=== PATIENT | female | born 1975 | race Caucasian/White ===

== ENCOUNTER 2017-09-04 10:57 | Emergency (ER) | payer BC ==
[2017-09-04] MEDS ORDERED: MORPHINE 4 MG/ML SYR ONE ×2 (11:25→12:14)
[2017-09-04] MEDS ORDERED: NA CHLORIDE 0.9% 1,000 ML ONE (11:26)
[2017-09-04] MEDS ORDERED: ONDANSETRON 4 MG/2 ML VIAL ONE (11:26)
[2017-09-04 11:49] LABS: Absolute Lymphocytes (CBC) 1.6 K/uL (0.7-4.9); Absolute Monocytes 0.7 K/uL (0.1-1.3); Absolute Neutrophil 19.8 K/uL (1.8-8.0); Basophils % 0.3 % (0-1.3); Eosinophils % 0.1 % (0-4.4); Hematocrit 41.2 % (36.0-45.0); Lymphocytes % 7.1 % (15.3-44.8); MCV 91.3 fL (80-100); MPV 8.6 fL (7.6-11.3); Monocytes % 3.4 % (3.3-12.3); RBC Red Blood Cell Count 4.51 M/uL (3.86-4.86)
[2017-09-04 12:00] LABS: Albumin 4.2 g/dL (3.2-5.5); Bilirubin Direct 0.1 mg/dL (0-0.2); Bilirubin Total 0.9 mg/dL (0.3-1.2); Magnesium 1.8 mg/dL (1.8-2.5); Protein, Total 7.7 g/dL (6.0-8.3)
[2017-09-04 12:04] LABS: Potassium 2.8 mEq/L (3.6-5.0)
[2017-09-04] MEDS ORDERED: MAGNESIUM SULFATE 1 gm IVPB 0 GM/0 ML BAG IV ONE (12:14)
[2017-09-04 12:17] LABS: Protime INR 1.11
[2017-09-04] MEDS ORDERED: KCL 20 MEQ/100 mL IVPB 20 MEQ/100 ML BAG IV ONE (12:19)
--- NOTE | 2017-09-04 12:29 | RAD REPORT ---
EXAM DESCRIPTION: CT - Abdomen Pelvis W Contrast - 09/04/2017 12:01 pm CLINICAL HISTORY: Abdominal pain, history of the hysterectomy performed 3 weeks earlier, vaginal ble eding COMPARISON: CT May 2017 TECHNIQUE: Biphasic, helical CT imaging of the abdomen and pelvis was performed following 100 ml non -ionic IV contrast. No oral contrast was given. All CT scans are performed using dose optimization technique as appropriate and may include automated exposure control or mA/KV adjustment according to patient size. FINDINGS: No suspicious findings in the lung bases. The liver, spleen, and pancreas show no suspicious findings. Gallbladder and biliary tree are also wi thout suspicious finding. Symmetric renal function is seen with no hydronephrosis or suspicious renal mass. No gastric dilatation or gastric wall thickening. No dilated small bowel loops. Distal small bowel lo ops are fluid filled and distended but not dilated. No mass or wall thickening. No appendicitis findi ngs. Bell of the colon are mildly prominent though the colon is mostly decompressed. This limits acc uracy of assessment. No bowel wall pneumatosis or focal inflammatory stranding. Free intraperitoneal air is present. Peritoneal air associated with the hysterectomy should have reso lved in his 3 week interval. Bowel in etiology is not seen. There is no large mass or hematoma at the vaginal cuff. This may be a source for introduction of free air. No hernia, mass or bulky lymphadenopathy. Partially filled urinary bladder shows no suspicious findin g. No adrenal abnormality. No suspicious bony findings. Findings discussed with the referring clinician 12:25 p.m. IMPRESSION: Free intraperitoneal air is present without abnormal free fluid. This is not a large fidelia ntity of air but is still abnormal. Surgery related air should have resolved in 3 weeks. No definitive source for the free air is seen. Focal defect of the vaginal cuff would be a primary c onsideration. Bell of the colon are prominent. This is probably from decompressed state rather than a pancolitis. Small bowel loops are prominent in the pelvis in this could be a nonspecific enteritis or ileus. Mild colitis would be possible as well. GI perforation or GI source for free air is unlikely.
--- NOTE | 2017-09-04 12:34 | RAD REPORT ---
EXAM DESCRIPTION: RAD - Chest Single View - 09/04/2017 11:38 am CLINICAL HISTORY: Chest pain, hysterectomy 3 weeks earlier COMPARISON: May 2014 TECHNIQUE: AP portable chest image was obtained 1126 hours . FINDINGS: No mass, consolidation or failure. Lung parenchyma is not substantially different from the comparison. Heart and vasculature are normal. No measurable pleural effusion and no pneumothorax. No gross bony abnormality seen. No acute aortic finding. Free intraperitoneal air is identified on this chest examination. This is further addressed on the CT abdomen report. IMPRESSION: No acute cardiopulmonary process. Free intraperitoneal air. Please see separate CT abdomen and pelvis report.
[2017-09-04 12:59] LABS: Blood Morphology Comment NOT SEEN (NOT SEEN); Platelet Estimate ADEQ; Urine White Blood Cell Casts OK
[2017-09-04] MEDS ORDERED: PIPER/TAZO/NS 3.375gm 3.375 GM/100 ML BAG ONE (13:10)
[2017-09-04] MEDS ORDERED: HYDROCODONE/APAP 7.5/325 MG TAB ONE (14:30)
--- NOTE | 2017-09-04 15:03 | ER ---
Nurse's Notes [facility] Name: Betty Mckeon Age: 41 yrs Sex: Female : 1975 Arrival Date: 09/04/2017 Time: 11:14 Bed 2 Private MD: Diagnosis: Abnormal uterine and vaginal bleeding, unspecified Presentation: 09/04 11:20 Presenting complaint: Patient states: Patient reports she had a hysterectomy 3 weeks ae1 prior and started bleeding the previous evening and today spotting bright red blood. Transition of care: patient was not received from another setting of care. Onset of symptoms was September 03, 2017 at 18:00. Risk Assessment: Do you want to hurt yourself or someone else? Patient reports no desire to harm self or others. Initial Sepsis Screen: Does the patient meet any 2 criteria? No. Patient's initial sepsis screen is negative. Does the patient have a suspected source of infection? No. Patient's initial sepsis screen is negative. Care prior to arrival: None. 11:20 Acuity: JUANCARLOS 3 ae1 11:20 Method Of Arrival: Wheelchair ae1 Triage Assessment: 11:37 General: Appears distressed, uncomfortable, slender, Behavior is cooperative, anxious, ae1 restless. Pain: Complains of pain in suprapubic area, right lower quadrant and left lower quadrant. Neuro: Level of Consciousness is awake, alert, obeys commands, Oriented to person, place, time, situation. Cardiovascular: Patient's skin is warm and dry. Respiratory: Airway is patent Respiratory effort is even, unlabored, Breath sounds are clear bilaterally. GI: Reports lower abdominal pain. : Reports vaginal bleeding that is. VEGETABLE PICKER: 11:16 LMP N/A - Hysterectomy ae1 Historical: - Allergies: 11:35 No Known Allergies; ae1 - PSHx: 11:35 Hysterectomy; ae1 - Immunization history:: Flu vaccine is not up to date. - Social history:: Smoking status: Patient uses tobacco products, Patient uses alcohol, street drugs, The patient lives with family. - Family history:: not pertinent. - Ebola Screening: : Patient negative for fever greater than or equal to 101.5 degrees Fahrenheit, and additional compatible Ebola Virus Disease symptoms Patient denies exposure to infectious person Patient denies travel to an Ebola-affected area in the 21 days before illness onset. Screenin:36 Abuse screen: Denies threats or abuse. Nutritional screening: No deficits noted. ae1 Tuberculosis screening: No symptoms or risk factors identified. Fall Risk None identified. Assessment: 15:28 Reassessment: Patient appears in no apparent distress at this time. Patient and/or ae1 family updated on plan of care and expected duration. Pain level reassessed. Patient states feeling better. Patient states symptoms have improved. Vital Signs: 11:16 BP 139 / 96; Pulse 81; Resp 20; Pulse Ox 98% on R/A; ae1 11:20 Temp 99.5(O); ae1 11:36 Weight 58.97 kg (R); ae1 12:09 BP 125 / 81; Pulse 70; Resp 15; Pulse Ox 100% on R/A; ae1 14:39 BP 123 / 86; Pulse 66; Resp 15; Pulse Ox 100% on R/A; ae1 15:28 Pulse 72; Resp 16; Pulse Ox 98% on R/A; ae1 15:55 BP 120 / 72; ae1 ED Course: 11:14 Patient arrived in ED. ae1 11:15 Mani Maier, COLETTE is Primary Nurse. ae1 11:17 Vitaly John PA is PHCP. cp 11:17 Pierre Reynaga MD is Attending Physician. cp 11:18 Omero Au MD is Attending Physician. cp 11:22 Triage completed. ae1 11:22 Placed in gown. Bed in low position. Call light in reach. Side rails up X 1. Adult w/ ae1 patient. semiconductor dies loader on. Pulse ox on. NIBP on. Warm blanket given. 11:35 EKG done, by ED staff, reviewed by Omero Au MD. Initial lab(s) drawn, by , jb1 sent to lab. Inserted saline lock: 22 gauge in right antecubital area, using aseptic technique. Blood collected. 11:36 Arm band placed on right wrist. EKG completed in triage. Results shown to . ae1 11:37 X-ray completed. Portable x-ray completed in exam room. Patient tolerated procedure jw2 poorly. 11:38 XRAY Chest (1 view) In Process Unspecified. EDMS 11:58 CT completed. Patient moved to CT via wheelchair. Patient moved back from CT. cw1 12:02 CT Abd/Pelvis - W/Contrast In Process Unspecified. EDMS 12:07 Patient moved back from CT. ae1 15:15 Assist provider with pelvic exam:. ae1 16:55 Patient transferred, IV remains in place. ae1 Administered Medications: 11:25 Drug: NS 0.9% 1000 ml Route: IV; Rate: 1 bolus; Site: right antecubital; ae1 15:56 Follow up: IV Status: Completed infusion ae1 11:25 Drug: morphine 4 mg Route: IVP; Site: right antecubital; ae1 12:26 Follow up: Response: Pain is unchanged, physician notified ae1 11:25 Drug: Zofran 4 mg Route: IVP; Site: right antecubital; ae1 12:26 Follow up: Response: No adverse reaction ae1 12:18 Drug: morphine 4 mg Route: IVP; Site: right antecubital; ae1 14:35 Follow up: Response: Pain is decreased ae1 12:25 Drug: Potassium Chloride 20 mEq Route: IV; Rate: bolus; Site: right antecubital; ae1 14:30 Follow up: IV Status: Completed infusion ae1 12:26 Not Given (Physician Discretion): Magnesium Sulfate 1 grams IVPB once over 1 hrs ae1 14:32 Drug: [place] (7.5 mg-325 mg) 1 tabs Route: PO; ae1 15:56 Follow up: Response: Pain is decreased ae1 14:38 Drug: Zosyn 3.375 grams Route: IVPB; Infused Over: 60 mins; Site: right antecubital; ae1 15:55 Follow up: IV Status: Completed infusion ae1 Outcome: 15:02 ER care complete, transfer ordered by . ma2 16:55 Transferred by ground EMS to [facility]. ae1 16:55 Condition: stable 16:55 Instructed on the need for transfer, Demonstrated understanding of instructions. 16:56 Patient left the ED. ae1 Signatures: Dispatcher [employer] EDMS Keven Arenas1 Emily Dominguez cw1 Viatly John PA PA cp Wailes, Jenni jw2 Mani Maier RN RN ae1 Omero Au MD MD ma2
--- NOTE | 2017-09-04 15:03 | EDPHYS ---
Physician Documentation [facility] Name: Betty Mckeon Age: 41 yrs Sex: Female : 1975 Arrival Date: 09/04/2017 Time: 11:14 Bed 2 Private MD: ED Physician Omero Au HPI: 09/04 11:21 This 41 yrs old Female presents to ER via Unassigned with complaints of abd ma2 pain. 11:21 The patient presents with abdominal pain in the lower abdomen. The symptoms do not ma2 radiate. Associated signs and symptoms: Pertinent positives: diarrhea, vaginal bleeding. The symptoms are described as stabbing. Modifying factors: The symptoms are alleviated by the symptoms are aggravated by movement. Severity of pain: At its worst the pain was severe. The patient has experienced similar episodes in the past. s/p hysterectomy 5 wks ago for DUB, here with vaginal bleeding, abd pain and while in the waiting room started to have chest pain that is left sided and been constant for 1 hour, she has diarrhea x 1 day, smoked MJ and states that she may have smoked cocaine accidently as she hang out with people who smoke it and they may have put it in her cigarette . COMMIS CHEF: 11:16 LMP N/A - Hysterectomy ae1 Historical: - Allergies: 11:35 No Known Allergies; ae1 - PSHx: 11:35 Hysterectomy; ae1 - Immunization history:: Flu vaccine is not up to date. - Social history:: Smoking status: Patient uses tobacco products, Patient uses alcohol, street drugs, The patient lives with family. - Family history:: not pertinent. - Ebola Screening: : Patient negative for fever greater than or equal to 101.5 degrees Fahrenheit, and additional compatible Ebola Virus Disease symptoms Patient denies exposure to infectious person Patient denies travel to an Ebola-affected area in the 21 days before illness onset. ROS: 11:24 Constitutional: Negative for fever, chills, and weight loss, Neck: Negative for injury, ma2 pain, and swelling, Cardiovascular: Negative for chest pain, palpitations, and edema, Respiratory: Negative for shortness of breath, cough, wheezing, and pleuritic chest pain, MS/Extremity: Negative for injury and deformity, Neuro: Negative for headache, weakness, numbness, tingling, and seizure, Endocrine: Negative for neck swelling, polydipsia, polyuria, polyphagia, and marked weight changes. 11:24 Abdomen/GI: Positive for abdominal pain. 11:24 : Positive for vaginal bleeding. 11:24 All other systems are negative. Exam: 11:24 Constitutional: This is a well developed, well nourished patient who is awake, alert, ma2 and in no acute distress. Head/Face: Normocephalic, atraumatic. Chest/axilla: Normal chest wall appearance and motion. Nontender with no deformity. No lesions are appreciated. Cardiovascular: Regular rate and rhythm with a normal S1 and S2. No gallops, murmurs, or rubs. Normal PMI, no JVD. No pulse deficits. Respiratory: Lungs have equal breath sounds bilaterally, clear to auscultation and percussion. No rales, rhonchi or wheezes noted. No increased work of breathing, no retractions or nasal flaring. MS/ Extremity: Pulses equal, no cyanosis. Neurovascular intact. Full, normal range of motion. Neuro: Awake and alert, GCS 15, oriented to person, place, time, and situation. Cranial nerves II-XII grossly intact. Motor strength 5/5 in all extremities. Sensory grossly intact. Cerebellar exam normal. Normal gait. 11:24 Abdomen/GI: Palpation: moderate abdominal tenderness, in the right upper quadrant, right lower quadrant and left lower quadrant, severe abdominal tenderness. 15:21 : Pelvic Exam: Speculum exam: mild bleeding, os that is closed. ma2 Vital Signs: 11:16 BP 139 / 96; Pulse 81; Resp 20; Pulse Ox 98% on R/A; ae1 11:20 Temp 99.5(O); ae1 11:36 Weight 58.97 kg (R); ae1 12:09 BP 125 / 81; Pulse 70; Resp 15; Pulse Ox 100% on R/A; ae1 14:39 BP 123 / 86; Pulse 66; Resp 15; Pulse Ox 100% on R/A; ae1 15:28 Pulse 72; Resp 16; Pulse Ox 98% on R/A; ae1 15:55 BP 120 / 72; ae1 MDM: 11:18 Patient medically screened. ma2 11:24 Differential diagnosis: gastritis, gastroesophageal reflux disease, sympomatic leaking ma2 abdominal aortic aneurysm, Menorrhagia, pancreatitis. 14:48 Data reviewed: vital signs, nurses notes, lab test result(s), radiologic studies. ma2 Counseling: I had a detailed discussion with the patient and/or guardian regarding: the historical points, exam findings, and any diagnostic results supporting the discharge/admit diagnosis, the presence of at least one elevated blood pressure reading (>120/80) during this emergency department visit, the need to transfer to another facility. Response to treatment: the patient's symptoms have markedly improved after treatment. ED course: patient has free intraperitoneal air consistent with vaginal cuff leak, we attempted to contact her surgeon multiple times Dr. De Leon from [facility] no reply, left voice messages. discussed with Dr. Bernie sosa who recommend transfer to [facility] for continuity of care . 09/04 11:20 Order name: Basic Metabolic Panel; Complete Time: 12:49 ma2 09/04 11:20 Order name: BNP; Complete Time: 12:04 [facility] 09/04 11:20 Order name: CBC with Diff; Complete Time: 14:06 [facility] 09/04 11:20 Order name: LFT's; Complete Time: 12:49 ks2 09/04 11:20 Order name: Magnesium; Complete Time: 12:49 ks2 09/04 11:20 Order name: PT-INR; Complete Time: 12:49 ks2 09/04 11:20 Order name: Ptt, Activated; Complete Time: 12:49 ks2 09/04 11:20 Order name: Troponin (emerg Dept Use Only); Complete Time: 12:04 ks2 09/04 11:20 Order name: XRAY Chest (1 view); Complete Time: 12:49 ks2 09/04 11:20 Order name: CT Abd/Pelvis - W/Contrast; Complete Time: 12:49 ks2 09/04 11:26 Order name: Lipase; Complete Time: 12:04 ks2 09/04 12:06 Order name: CBC Smear Scan; Complete Time: 14:06 EDMS 09/04 14:29 Order name: Urine Dipstick--Ancillary (enter results); Complete Time: 15:42 bd 09/04 11:20 Order name: EKG; Complete Time: 11:21 ma2 09/04 11:20 Order name: Cardiac monitoring; Complete Time: 11:23 ma2 09/04 11:20 Order name: EKG - Nurse/Tech; Complete Time: 11:32 ks2 09/04 11:20 Order name: IV Saline Lock; Complete Time: 11: [facility] 09/04 11:20 Order name: Labs collected and sent; Complete Time: : ks09/04 11:20 Order name: O2 Per Protocol; Complete Time: 11: ks2 09/04 11:20 Order name: O2 Sat Monitoring; Complete Time: : [facility] 09/04 11:20 Order name: Urine Dipstick-Ancillary (obtain specimen); Complete Time: 14:36 ma2 Administered Medications: 11:25 Drug: NS 0.9% 1000 ml Route: IV; Rate: 1 bolus; Site: right antecubital; ae1 15:56 Follow up: IV Status: Completed infusion ae1 11:25 Drug: morphine 4 mg Route: IVP; Site: right antecubital; ae1 12:26 Follow up: Response: Pain is unchanged, physician notified ae1 11:25 Drug: Zofran 4 mg Route: IVP; Site: right antecubital; ae1 12:26 Follow up: Response: No adverse reaction ae1 12:18 Drug: morphine 4 mg Route: IVP; Site: right antecubital; ae1 14:35 Follow up: Response: Pain is decreased ae1 12:25 Drug: Potassium Chloride 20 mEq Route: IV; Rate: bolus; Site: right antecubital; ae1 14:30 Follow up: IV Status: Completed infusion ae1 12:26 Not Given (Physician Discretion): Magnesium Sulfate 1 grams IVPB once over 1 hrs ae1 14:32 Drug: [place] (7.5 mg-325 mg) 1 tabs Route: PO; ae1 15:56 Follow up: Response: Pain is decreased ae1 14:38 Drug: Zosyn 3.375 grams Route: IVPB; Infused Over: 60 mins; Site: right antecubital; ae1 15:55 Follow up: IV Status: Completed infusion ae1 Disposition: 09/04/17 15:02 Transfer ordered to [facility]. Diagnosis is Abnormal uterine and vaginal bleeding, unspecified. - Reason for transfer: [facility]. - Accepting physician is Dr. Olmedo. - Condition is Stable. - Problem is new. - Symptoms are unchanged. Signatures: Dispatcher [employer] EDMS Quynh Early, GEAR SHAVER SET UP OPERATOR-C GEAR SHAVER SET UP OPERATOR-Csnw Mani Maier, RN RN ae1 Omero Au MD MD ma2 Corrections: (The following items were deleted from the chart) 15:22 11:27 URINALYSIS+U.LAB.BRZ ordered. [facility] 16:56 15:02 09/04/2017 15:02 Transfer ordered to [facility]. Diagnosis is Abnormal ae1 uterine and vaginal bleeding, unspecified. Reason for transfer: [facility] Physician [facility]. Accepting physician is Dr. Olmedo. Condition is Stable. Problem is new. Symptoms are unchanged. ma2
[2017-09-04 15:20] LABS: Urine Blood 2+ (NEG); Urine Glucose NEGATIVE (NEG); Urine Protein 1+ (NEG); Urine Specific Gravity 1.015 (1.005-1.030); Urine pH 8.5 (5.0-7.0)
[2017-09-04 17:25] VITALS: TEMP 99.5
[2017-09-04 17:29] VITALS: BP 120/72; O2SAT 98
--- NOTE | 2017-09-05 12:46 | EKG ---
Test Date: 2017-09-04 Test Time: 11:28:48 Pickling Machine Operator: MAI MEASUREMENT RESULTS: Intervals: Rate: 74 CT: 136 QRSD: 86 QT: 386 QTc: 428 [place]: P: 38 CT: 136 QRS: 70 T: 62 INTERPRETIVE STATEMENTS: Normal sinus rhythm with sinus arrhythmia Minimal voltage criteria for LVH, may be normal variant Borderline ECG Compared to ECG 06/03/2014 09:26:55 Left ventricular hypertrophy now present Sinus tachycardia no longer present Atrial abnormality no longer present ST (T wave) deviation no longer present Electronically Signed On 09-05-17 12:43:51 CDT by Logan Reyes
== END 2017-09-04 16:56 | disposition short-term general hospital (02) ==
LOC: ER 10:57
DX: N93.9 Abnormal uterine and vaginal bleeding, unspecified (principal); Z72.0 Tobacco use
CPT/HCPCS: 36415; 71045; 74177; 80048; 80076; 81003; 83690; 83735; 83880; 84484; 85025; 85610; 85730; 93005; 96361; 96365; 96366; 96367; 96375; 99285; J2405; J2543; J3475; J7030; Q9967

== ENCOUNTER 2017-09-13 09:41 | Emergency (ER) | payer BC ==
[2017-09-13] MEDS ORDERED: ONDANSETRON 4 MG/2 ML VIAL ONE (10:20)
[2017-09-13] MEDS ORDERED: MORPHINE 4 MG/ML SYR ONE (10:20)
[2017-09-13] MEDS ORDERED: NA CHLORIDE 0.9% 1,000 ML ONE (10:20)
[2017-09-13 11:00] LABS: Absolute Lymphocytes (CBC) 2.7 K/uL (0.7-4.9); Absolute Monocytes 0.5 K/uL (0.1-1.3); Absolute Neutrophil 7.7 K/uL (1.8-8.0); Basophils % 1.2 % (0-1.3); Eosinophils % 2.3 % (0-4.4); Hematocrit 36.1 % (36.0-45.0); Lymphocytes % 23.9 % (15.3-44.8); MCH 29.1 pg (27.0-35.0); MCV 92.1 fL (80-100); MPV 7.8 fL (7.6-11.3); Monocytes % 4.3 % (3.3-12.3); RBC Red Blood Cell Count 3.93 M/uL (3.86-4.86)
[2017-09-13 11:16] LABS: Potassium 3.9 mEq/L (3.6-5.0)
[2017-09-13 11:22] LABS: Albumin 3.9 g/dL (3.2-5.5); Bilirubin Direct 0.1 mg/dL (0-0.2); Bilirubin Total 0.4 mg/dL (0.3-1.2); Protein, Total 7.3 g/dL (6.0-8.3)
[2017-09-13 11:54] LABS: Urine Amorphous Sediment 2+ /HPF (NONE SEEN); Urine Bacteria <20 /HPF (<20); Urine Culture Reflex Order NOT NEEDED; Urine RBC NONE SEEN /HPF (NONE SEEN)
[2017-09-13] MEDS ORDERED: MEPERIDINE HCL 25 MG/0.5 ML ONE (12:28)
--- NOTE | 2017-09-13 13:50 | RAD REPORT ---
EXAM DESCRIPTION: CT - Abdomen Pelvis W Contrast - 09/13/2017 1:28 pm CLINICAL HISTORY: Abdominal pain. Nausea and vomiting COMPARISON: None. TECHNIQUE: Computed axial tomography of the abdomen and pelvis was obtained. 100 cc Isovue-300 is ad ministered intravenously. Oral contrast was given. All CT scans are performed using dose optimization technique as appropriate and may include automated exposure control or mA/KV adjustment according to patient size. FINDINGS: The liver, spleen, pancreas, adrenals and kidneys appear unremarkable. There is no evidence of diverticulitis The pneumoperitoneum has resolved. Air within the vagina is noted IMPRESSION: Air within the vagina could be secondary to recent instrumentation. Infection and fistu la can also result in this appearance.
[2017-09-13] MEDS ORDERED: CEFTRIAXONE/SWI 1gm 1 GM/10 ML SYR ONE (14:08)
[2017-09-13] MEDS ORDERED: DOXYCYCLINE 100 MG CAP PO ONE (14:08)
--- NOTE | 2017-09-13 14:08 | EDPHYS ---
Physician Documentation [facility] Name: Betty Mckeon Age: 41 yrs Sex: Female : 1975 Arrival Date: 09/13/2017 Time: 09:41 Bed 28 Private MD: Darell Kaba E ED Physician Jesus De Dios HPI: 09/13 12:53 This 41 yrs old Female presents to ER via Ambulatory with complaints of rn Abdominal Pain. 12:53 The patient presents with abdominal pain in the lower abdomen. Onset: The rn symptoms/episode began/occurred 1 week(s) ago. Associated signs and symptoms: Pertinent positives: constipation, nausea, Pertinent negatives: dysuria, fever. Modifying factors: The symptoms are alleviated by nothing, the symptoms are aggravated by touching the area. Severity of pain: At its worst the pain was moderate in the emergency department the pain has improved. The patient has experienced a previous episode. Reports discharged 5 days ago from OSH, had to be re-admitted for free peritoneal air, told stitches had busted loose, repaired, stayed in hospital for 2 days, discharged, reports still has pain, discharge and bleeding is improved, no fever, + constipation and nausea. . 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 - Social history:: Smoking status: Patient uses tobacco products, smokes one-half pack cigarettes per day. - Ebola Screening: : No symptoms or risks identified at this time. - Family history:: not pertinent. - Hospitalizations: : No recent hospitalization is reported. ROS: 12:53 Constitutional: Negative for fever, chills, and weight loss, Eyes: Negative for injury, rn pain, redness, and discharge, Neck: Negative for injury, pain, and swelling, Cardiovascular: Negative for chest pain, palpitations, and edema, Respiratory: Negative for shortness of breath, cough, wheezing, and pleuritic chest pain, Abdomen/GI: Negative for vomiting, diarrhea MS/Extremity: Negative for injury and deformity, Skin: Negative for injury, rash, and discoloration, Neuro: Negative for headache, weakness, numbness, tingling, and seizure. Exam: 12:53 Constitutional: Thin female, no acute distress, immediately requesting warm blanket rn and pain medication Head/Face: Normocephalic, atraumatic. Eyes: Pupils equal round and reactive to light, extra-ocular motions intact. Lids and lashes normal. Conjunctiva and sclera are non-icteric and not injected. Cornea within normal limits. Periorbital areas with no swelling, redness, or edema. Cardiovascular: Regular rate and rhythm with a normal S1 and S2. No gallops, murmurs, or rubs. Normal PMI, no JVD. No pulse deficits. Respiratory: Lungs have equal breath sounds bilaterally, clear to auscultation and percussion. No rales, rhonchi or wheezes noted. No increased work of breathing, no retractions or nasal flaring. Abdomen/GI: soft, mild suprapubic tenderness, no peritoneal signs, well healed external scar Back: No spinal tenderness. No costovertebral tenderness. Full range of motion. Skin: Warm, dry with normal turgor. Normal color with no rashes, no lesions, and no evidence of cellulitis. MS/ Extremity: Pulses equal, no cyanosis. Neurovascular intact. Full, normal range of motion. Equal circumference. Neuro: Awake and alert, GCS 15, oriented to person, place, time, and situation. Cranial nerves II-XII grossly intact. Motor strength 5/5 in all extremities. Sensory grossly intact. Cerebellar exam normal. Normal gait. Vital Signs: 10:02 BP 119 / 81; Pulse 79; Resp 18 S; Temp 97.2(TE); Pulse Ox 100% on R/A; Weight 45.36 kg aa5 (R); Height 5 ft. 7 in. (170.18 cm) (R); Pain 9/10; 11:42 BP 111 / 85; Pulse 55; Resp 17; Pulse Ox 100% on R/A; aj 12:52 BP 125 / 87; Pulse 63; Resp 19; Pulse Ox 100% on R/A; aj 13:59 BP 125 / 94; Pulse 64; Resp 18; Pulse Ox 100% on R/A; aj 10:02 Body Mass Index 15.66 (45.36 kg, 170.18 cm) aa MDM: 10:06 Patient medically screened. rn 14:04 Differential diagnosis: non-specific abd pain, post-operative complication, rn post-operative infection, constipation, non-specific abd pain. Data reviewed: vital signs, nurses notes, lab test result(s), radiologic studies, CT scan, and as a result, I will discharge patient. Counseling: I had a detailed discussion with the patient and/or guardian regarding: the historical points, exam findings, and any diagnostic results supporting the discharge/admit diagnosis, lab results, radiology results, the need for outpatient follow up, to return to the emergency department if symptoms worsen or persist or if there are any questions or concerns that arise at home. Special discussion: Based on the patient's Hx, exam, and Dx evaluation, there is no indication for emergent surgery or inpatient Tx. It is understood by the patient/guardian that if the Sx's persist or worsen they need to return immediately for re-evaluation. I discussed with the patient/guardian in detail that at this point there is no indication for admission to the hospital. It is understood, however, that if the symptoms persist or worsen the patient needs to return immediately for re-evaluation. Based on the history and exam findings, there is no indication for further emergent testing or inpatient evaluation. I discussed with the patient/guardian the need to see the OB Gyne specialist for further evaluation of the symptoms. 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 . 09/13 10:13 Order name: Basic Metabolic Panel; Complete Time: 12:34 rn 09/13 10:13 Order name: CBC with Diff; Complete Time: 12:34 rn 09/13 10:13 Order name: Creatinine for Radiology; Complete Time: 12:34 rn 09/13 10:13 Order name: Hepatic Function; Complete Time: 12:34 rn 09/13 10:13 Order name: Lipase; Complete Time: 12:34 rn 09/13 10:13 Order name: Urine Microscopic Only; Complete Time: 12:34 rn 09/13 10:13 Order name: CT Abd/Pelvis - W/Contrast; Complete Time: 13:59 rn 09/13 11:51 Order name: Urine Dipstick--Ancillary (enter results) bd 09/13 10:13 Order name: IV Saline Lock; Complete Time: 10:54 rn 09/13 10:13 Order name: Labs collected and sent; Complete Time: 10:54 rn 09/13 10:13 Order name: Urine Dipstick-Ancillary (obtain specimen); Complete Time: 10:54 rn Administered Medications: 10:53 Drug: Zofran 4 mg Route: IVP; Site: right forearm; aj 14:11 Follow up: Response: Nausea is decreased aj 10:53 Drug: NS 0.9% 1000 ml Route: IV; Rate: 1000 ml; Site: right forearm; aj 14:11 Follow up: Response: Nausea is decreased; IV Status: Completed infusion; IV Intake: aj 1000ml 10:54 Drug: morphine 4 mg Route: IVP; Site: right forearm; aj 14:11 Follow up: Response: Pain is decreased aj 12:31 Drug: Demerol 25 mg Route: IVP; Site: right forearm; aj 14:11 Follow up: Response: Pain is decreased aj 14:10 Drug: Doxycycline 100 mg Route: PO; aj 14:11 Drug: Rocephin - (cefTRIAXone) 1 grams Route: IVPB; Infused Over: 30 mins; Site: right aj forearm; 14:12 Follow up: Response: No adverse reaction; IV Status: Completed infusion; IV Intake: 10mlaj Disposition: 09/13/17 14:08 Discharged to Home. Impression: Lower abdominal pain, unspecified. - Condition is Stable. - Discharge Instructions: Abdominal Pain, Adult, Abdominal Pain, Women. - Prescriptions for Tylenol- Codeine #3 300-30 mg Oral Tablet - take 1 tablet by ORAL route every 6 hours As needed; 15 tablet. Doxycycline Monohydrate 100 mg Oral Tablet - take 1 tablet by ORAL route every 12 hours for 10 days; 20 tablet. cefpodoxime 100 mg Oral Tablet - take 2 tablet by ORAL route every 12 hours for 10 days take with food; 40 tablet. - Medication Reconciliation Form, Thank You Letter, Antibiotic Education, Prescription Opioid Use form. - Follow up: Private Physician; When: 1 - 2 days; Reason: Recheck today's complaints, Re-evaluation by your physician. - Problem is new. - Symptoms have improved. Signatures: Dispatcher [employer] Rachel Vasquez, RN Jesus Gar MD MD rn Calderon, Audri, RN RN aa5 Corrections: (The following items were deleted from the chart) 09:48 Allergies: Lisinopril; aa5 [facility] 09:48 PMHx: Diabetes - NIDDM; aa5 09:48 PMHx: Hypertension; 5 [facility] 09:48 PSHx: Right ovary removed (cyst); 5 09:48 Ebola Screening: No symptoms or risks identified at this time 5 [facility] 09:48 Social history: Smoking status: Patient/guardian denies using tobacco, 5 [facility] 09:48 Immunization history: Adult Immunizations unknown, [place] [id number] 14:18 14:08 09/13/2017 14:08 Discharged to Home. Impression: Lower abdominal pain, aj unspecified. Condition is Stable. Forms are Medication Reconciliation Form, Thank You Letter, Antibiotic Education, Prescription Opioid Use. Follow up: Private Physician; When: 1 - 2 days; Reason: Recheck today's complaints, Re-evaluation by your physician. Problem is new. Symptoms have improved. rn
--- NOTE | 2017-09-13 14:08 | ER ---
Nurse's Notes [facility] Name: Betty Mckeon Age: 41 yrs Sex: Female : 1975 Arrival Date: 09/13/2017 Time: 09:41 Bed 28 Private MD: Darell Kaba E Diagnosis: Lower abdominal pain, unspecified Presentation: 09/13 10:00 Presenting complaint: Patient states: abd pain and nausea/vomiting, denies diarrhea. Pt aa5 states "I had some intestinal problem and they just did surgery to repair it a couple of days ago". Transition of care: patient was not received from another setting of care. Onset of symptoms was September 2017. Risk Assessment: Do you want to hurt yourself or someone else? Patient reports no desire to harm self or others. Initial Sepsis Screen: Does the patient meet any 2 criteria? No. Patient's initial sepsis screen is negative. Does the patient have a suspected source of infection? No. Patient's initial sepsis screen is negative. Care prior to arrival: None. 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 - Social history:: Smoking status: Patient uses tobacco products, smokes one-half pack cigarettes per day. - Ebola Screening: : No symptoms or risks identified at this time. - Family history:: not pertinent. - Hospitalizations: : No recent hospitalization is reported. Screenin:14 Abuse screen: Denies threats or abuse. Denies injuries from another. Nutritional aj screening: No deficits noted. Tuberculosis screening: No symptoms or risk factors identified. Fall Risk None identified. Assessment: 10:14 General: Appears in no apparent distress. comfortable, slender, Behavior is calm, aj cooperative, appropriate for age. Pain: Complains of pain in pelvis. Cardiovascular: No deficits noted. Capillary refill < 3 seconds in bilateral fingers Patient's skin is warm and dry. Respiratory: Airway is patent Respiratory effort is even, unlabored, Respiratory pattern is regular, symmetrical. GI: Abdomen is flat, non-distended, Abd is soft and non tender. : Reports cramping, vaginal bleeding that is brown, spotty. Derm: Skin is intact, is healthy with good turgor, Skin is pink, warm \\T\\ dry. normal. 11:42 Reassessment: Patient sleeping in bed, in NAD. aj 14:17 Reassessment: Patient appears in no apparent distress at this time. No changes from aj previously documented assessment. Patient and/or family updated on plan of care and expected duration. Pain level reassessed. Patient is alert, oriented x 3, equal unlabored respirations, skin warm/dry/pink. Patient states feeling better. Patient states symptoms have improved. Vital Signs: 10:02 BP 119 / 81; Pulse 79; Resp 18 S; Temp 97.2(TE); Pulse Ox 100% on R/A; Weight 45.36 kg aa5 (R); Height 5 ft. 7 in. (170.18 cm) (R); Pain 9/10; 11:42 BP 111 / 85; Pulse 55; Resp 17; Pulse Ox 100% on R/A; aj 12:52 BP 125 / 87; Pulse 63; Resp 19; Pulse Ox 100% on R/A; aj 13:59 BP 125 / 94; Pulse 64; Resp 18; Pulse Ox 100% on R/A; aj 10:02 Body Mass Index 15.66 (45.36 kg, 170.18 cm) aa5 ED Course: 09:41 Patient arrived in ED. as 09:41 Darell Kaba MD is Private Physician. as 09:50 Triage completed. aa5 10:01 Arm band placed on. aa5 10:04 Rachel Blanco, COLETTE is Primary Nurse. aj 10:06 Jesus De Dios MD is Attending Physician. rn 10:14 Patient has correct armband on for positive identification. aj 10:53 Inserted saline lock: 22 gauge in right forearm, using aseptic technique. Blood aj collected. 13:21 CT completed. Patient tolerated procedure well. Patient moved to CT via wheelchair. 13:28 CT Abd/Pelvis - W/Contrast In Process Unspecified. EDMS 14:17 No provider procedures requiring assistance completed. IV discontinued, intact, aj bleeding controlled, No redness/swelling at site. Pressure dressing applied. Administered Medications: 10:53 Drug: Zofran 4 mg Route: IVP; Site: right forearm; aj 14:11 Follow up: Response: Nausea is decreased aj 10:53 Drug: NS 0.9% 1000 ml Route: IV; Rate: 1000 ml; Site: right forearm; aj 14:11 Follow up: Response: Nausea is decreased; IV Status: Completed infusion; IV Intake: aj 1000ml 10:54 Drug: morphine 4 mg Route: IVP; Site: right forearm; aj 14:11 Follow up: Response: Pain is decreased aj 12:31 Drug: Demerol 25 mg Route: IVP; Site: right forearm; aj 14:11 Follow up: Response: Pain is decreased aj 14:10 Drug: Doxycycline 100 mg Route: PO; aj 14:11 Drug: Rocephin - (cefTRIAXone) 1 grams Route: IVPB; Infused Over: 30 mins; Site: right aj forearm; 14:12 Follow up: Response: No adverse reaction; IV Status: Completed infusion; IV Intake: 10mlaj Intake: 14:11 IV: 1000ml; Total: 1000ml. aj 14:12 IV: 10ml; Total: 1010ml. aj Outcome: 14:08 Discharge ordered by . rn 14:17 Discharged to home ambulatory, with family. aj 14:17 Condition: good 14:17 Discharge instructions given to patient, Instructed on discharge instructions, follow up and referral plans. medication usage, Demonstrated understanding of instructions, follow-up care, medications, Prescriptions given X 3. 14:18 Patient left the ED. aj Signatures: Dispatcher [employer] EDMS Rachel Blanco RN RN aj Martinez, Amelia as Nieto, Roman, MD MD rn Calderon, Audri, RN RN aa5 Warren, Shannon Corrections: (The following items were deleted from the chart) 09:51 09:48 Presenting complaint: Patient states: nausea and vomiting today. pt also reports aa5 generalized weakness. Pt states "I went to a clinic about a month ago and my white count was high so they gave me a couple of antibiotic shots yesterday". aa5 09:47 Arm band placed on aa5 aa5 09:48 Allergies: Lisinopril; aa5 aa5 09:48 PMHx: Diabetes - NIDDM; aa5 aa5 09:48 PMHx: Hypertension; aa5 aa5 09:48 PSHx: Right ovary removed (cyst); aa5 09:48 Ebola Screening: No symptoms or risks identified at this time 5 [facility] 09:48 Social history: Smoking status: Patient/guardian denies using tobacco, 5 09:48 Immunization history: Adult Immunizations unknown, 5 [facility] 09:48 Transition of care: patient was not received from another setting of care. 5 [facility] 09:48 Onset of symptoms was September 13, 2017 5 [facility] 09:48 Risk Assessment: Do you want to hurt yourself or someone else? Patient reports no aa5 desire to harm self or others. [facility] 09:48 Initial Sepsis Screen: Does the patient meet any 2 criteria? No. Patient's aa5 initial sepsis screen is negative. Does the patient have a suspected source of infection? No. Patient's initial sepsis screen is negative. [facility] 09:48 Care prior to arrival: None. 5 09:48 Presenting complaint: Patient states: nausea and vomiting today. pt also reports aa5 generalized weakness. Pt states "I went to a clinic about a month ago and my white count was high so they gave me a couple of antibiotic shots yesterday because the doctor thinks I have an infection somewhere". [facility] 09:48 Method Of Arrival: Ambulatory [facility] 09:48 Acuity: JUANCARLOS 3 [place] [id number] 09:50 BP 136 / 73; Pulse 100bpm; Resp 16bpm; Spontaneous; Pulse Ox 99% RA; Temp 97.0F 5 Temporal; 89.36 kg Reported; Height 5 ft. 5 in. Reported; BMI: 32.7; Pain 0/10; 5 09:50 LMP 08/18/2017 aa5 [facility]
[2017-09-13 14:38] VITALS: TEMP 97.2; O2SAT 100
[2017-09-13 14:42] VITALS: BP 125/94
[2017-09-13 14:44] LABS: Urine Blood NEGATIVE (NEG); Urine Glucose NEGATIVE (NEG); Urine Protein NEGATIVE (NEG); Urine Specific Gravity >1.030 (1.005-1.030); Urine pH 6.5 (5.0-7.0)
== END 2017-09-13 14:18 | disposition home or self-care (01) ==
LOC: ER 09:41
DX: R10.30 Lower abdominal pain, unspecified (principal); F17.210 Nicotine dependence, cigarettes, uncomplicated
CPT/HCPCS: 36415; 74177; 80048; 80076; 81003; 81015; 83690; 85025; 96361; 96374; 96375; 99284; J0696; J2175; J2405; J7030; Q9967

== ENCOUNTER 2018-05-13 18:16 | Emergency (ER) | payer BC, OTHER ==
[2018-05-13] MEDS ORDERED: FENTANYL CITR 100 MCG/2 ML ONE (18:53)
[2018-05-13 19:02] LABS: Urine Blood TRACE (NEG); Urine Glucose NEGATIVE (NEG); Urine Protein TRACE (NEG); Urine pH 7.5 (5.0-7.0)
[2018-05-13] MEDS ORDERED: MORPHINE 4 MG/ML SYR ONE (19:05)
[2018-05-13] MEDS ORDERED: ONDANSETRON 4 MG/2 ML VIAL ONE (19:05)
--- NOTE | 2018-05-13 19:10 | RAD REPORT ---
EXAM DESCRIPTION: CT - Stone Protocol - 05/13/2018 6:54 pm CLINICAL HISTORY: Flank pain, hematuria, dysuria COMPARISON: CT study September 2017 TECHNIQUE: Axial 5 mm thick images were obtained without oral or IV contrast. The [id number] span s the entirety of the system including uppermost abdomen and lung bases. All CT scans are performed using dose optimization technique as appropriate and may include automated exposure control or mA/KV adjustment according to patient size. FINDINGS: No hydronephrosis is present and no obstructing ureteral calculi. No suspicious renal mass es. Isodense masses and pyelonephritis are not excluded on a stone protocol CT scan. Bladder is fully contracted limiting assessment. No significant adrenal finding. Imaged portions of the liver, spleen and pancreas show no suspicious findings on non-contrast imaging . No gallbladder or biliary tree abnormality identified. No suspicious bowel findings. Moderate stool volume throughout the colon. No appendicitis findings. U terus is absent. Ovaries are absent or atrophic. No adnexal abnormality. No hernia, mass or bulky lymphadenopathy noted. No free air, free fluid or inflammatory stranding. No significant bony abnormality. IMPRESSION: No hydronephrosis, obstructing calculus or acute finding. Bladder assessment is limit ed due to contracted state. Isodense masses and pyelonephritis are not excluded on stone protocol technique.
[2018-05-13 19:18] LABS: Absolute Lymphocytes (CBC) 1.9 K/uL (0.7-4.9); Absolute Monocytes 0.3 K/uL (0.1-1.3); Basophils % 0.9 % (0-1.3); Eosinophils % 1.7 % (0-4.4); Hematocrit 41.2 % (36.0-45.0); Lymphocytes % 29.9 % (15.3-44.8); MPV 8.2 fL (7.6-11.3); Monocytes % 4.9 % (3.3-12.3); RBC Red Blood Cell Count 4.47 M/uL (3.86-4.86)
[2018-05-13 19:19] LABS: Urine Amorphous Sediment 4+ /HPF (NONE SEEN); Urine Bacteria LOADED /HPF (<20); Urine Culture Reflex Order NOT NEEDED; Urine RBC <5 /HPF (NONE SEEN)
[2018-05-13 19:25] LABS: Potassium 3.4 mmol/L (3.5-5.1)
--- NOTE | 2018-05-13 19:38 | EDPHYS ---
Physician Documentation [facility] Name: Betty Mckeon Age: 42 yrs Sex: Female : 1975 Arrival Date: 05/13/2018 Time: 18:20 Bed 6 Private MD: Darell Kaba E ED Physician Pierre Reynaga HPI: 05/13 18:42 This 42 yrs old Female presents to ER via Ambulatory with complaints of Back jr8 Pain, Abdominal Pain. 18:42 Patient stated that she has had a couple days of burning with urination. Has left sided jr8 flank pain now . Severity of symptoms: At their worst the symptoms were moderate in the emergency department the symptoms are unchanged. It is unknown whether or not the patient has had similar symptoms in the past. The patient has not recently seen a physician. Historical: - Allergies: 18:25 No Known Allergies; la1 - PMHx: 18:25 Bipolar disorder; chronic kidney disease; la1 - PSHx: 18:38 Hysterectomy; iw - Immunization history:: Adult Immunizations up to date. - Social history:: Smoking status: Patient uses tobacco products, smokes one-half pack cigarettes per day. - Ebola Screening: : No symptoms or risks identified at this time. ROS: 18:42 Eyes: Negative for injury, pain, redness, and discharge, ENT: Negative for injury, jr8 pain, and discharge, Neck: Negative for injury, pain, and swelling, Cardiovascular: Negative for chest pain, palpitations, and edema, Respiratory: Negative for shortness of breath, cough, wheezing, and pleuritic chest pain, Abdomen/GI: Negative for abdominal pain, nausea, vomiting, diarrhea, and constipation, MS/Extremity: Negative for injury and deformity, Skin: Negative for injury, rash, and discoloration, Neuro: Negative for headache, weakness, numbness, tingling, and seizure. 18:42 Back: Positive for flank pain, on the left. 18:42 : Positive for urinary symptoms, burning with urination, Negative for pelvic pain, vaginal bleeding, vaginal discharge, vaginal itching, menstrual abnormality. Exam: 18:42 Eyes: Pupils equal round and reactive to light, extra-ocular motions intact. Lids and jr8 lashes normal. Conjunctiva and sclera are non-icteric and not injected. Cornea within normal limits. Periorbital areas with no swelling, redness, or edema. ENT: Nares patent. No nasal discharge, no septal abnormalities noted. Tympanic membranes are normal and external auditory canals are clear. Oropharynx with no redness, swelling, or masses, exudates, or evidence of obstruction, uvula midline. Mucous membranes moist. Neck: Trachea midline, no thyromegaly or masses palpated, and no cervical lymphadenopathy. Supple, full range of motion without nuchal rigidity, or vertebral point tenderness. No Meningismus. Cardiovascular: Regular rate and rhythm with a normal S1 and S2. No gallops, murmurs, or rubs. Normal PMI, no JVD. No pulse deficits. Respiratory: Lungs have equal breath sounds bilaterally, clear to auscultation and percussion. No rales, rhonchi or wheezes noted. No increased work of breathing, no retractions or nasal flaring. Skin: Warm, dry with normal turgor. Normal color with no rashes, no lesions, and no evidence of cellulitis. MS/ Extremity: Pulses equal, no cyanosis. Neurovascular intact. Full, normal range of motion. Neuro: Awake and alert, GCS 15, oriented to person, place, time, and situation. Cranial nerves II-XII grossly intact. Motor strength 5/5 in all extremities. Sensory grossly intact. Cerebellar exam normal. Normal gait. 18:42 Abdomen/GI: Inspection: abdomen appears normal, Bowel sounds: active, all quadrants, Palpation: soft, in all quadrants, mild abdominal tenderness, in the anterior aspect of left lateral abdomen and left lower quadrant, mass, is not appreciated, rebound tenderness, is not appreciated, voluntary guarding, is not appreciated, involuntary guarding, is not appreciated, no appreciated organomegaly, Indicators: McBurney's point is not tender, Goyal's sign is negative, Rovsing's sign is negative, Liver: tenderness, is not appreciated. 18:42 Back: pain, that is mild, of the left flank, ROM is normal, normal spinal alignment noted, CVA tenderness, that is mild, is noted on the left, vertebral tenderness, is not appreciated. Vital Signs: 18:26 BP 116 / 83; Pulse 81; Resp 18; Temp 98.4; Pulse Ox 98% on R/A; Weight 54.43 kg; Height la1 5 ft. 7 in. (170.18 cm); 19:12 BP 96 / 68; Pulse 73; Resp 16 S; Pulse Ox 100% on R/A; jl7 19:20 BP 105 / 82; Pulse 70; Resp 18; Pulse Ox 99% on R/A; ea 18:26 Body Mass Index 18.79 (54.43 kg, 170.18 cm) la1 MDM: 18:30 Patient medically screened. jr8 19:35 Data reviewed: vital signs, nurses notes, lab test result(s), radiologic studies, CT jr scan. Data interpreted: Pulse oximetry: on room air is 100 %. Interpretation: normal. Counseling: I had a detailed discussion with the patient and/or guardian regarding: the historical points, exam findings, and any diagnostic results supporting the discharge/admit diagnosis, lab results, radiology results, the need for outpatient follow up, a family practitioner, to return to the emergency department if symptoms worsen or persist or if there are any questions or concerns that arise at home. Response to treatment: the patient's symptoms have markedly improved after treatment, and as a result, I will discharge patient. 05/13 18:37 Order name: Basic Metabolic Panel [facility] 05/13 18:37 Order name: CBC with Diff [facility] 05/13 18:37 Order name: Urine Culture [facility] 05/13 18:37 Order name: Urine Microscopic Only; Complete Time: 19:31 [facility] 05/13 18:38 Order name: Basic Metabolic Panel; Complete Time: 19:31 [facility] 05/13 18:38 Order name: CBC with Automated Diff; Complete Time: 19:31 [facility] 05/13 18:37 Order name: IV Saline Lock; Complete Time: 18:56 [facility] 05/13 18:37 Order name: CT Stone Protocol; Complete Time: 19:19 [facility] 05/13 18:38 Order name: Urine Culture [facility] 05/13 18:46 Order name: Urine Dipstick--Ancillary (enter results); Complete Time: 19:19 05/13 18:37 Order name: Labs collected and sent; Complete Time: 18:56 [facility] 05/13 18:37 Order name: Urine Test (obtain specimen); Complete Time: 18:56 [facility] 05/13 18:37 Order name: Urine Dipstick-Ancillary (obtain specimen); Complete Time: 18:56 [facility] Administered Medications: 18:56 Not Given (Patient Refused): fentaNYL (PF) 50 mcg IVP once jl7 19:01 Drug: Zofran 4 mg Route: IVP; Site: right antecubital; jl7 19:15 Follow up: Response: No adverse reaction ea 19:03 Drug: morphine 4 mg Route: IVP; Site: right antecubital; jl7 19:15 Follow up: Response: No adverse reaction; Pain is decreased ea 19:35 Drug: Rocephin 1 grams Route: IV; Rate: calculated rate; Site: right antecubital; ea 19:55 Follow up: Response: No adverse reaction; IV Status: Completed infusion ea Disposition: 05/13/18 19:37 Discharged to Home. Impression: Acute cystitis with hematuria. - Condition is Stable. - Discharge Instructions: Urinary Tract Infection, Adult. - Prescriptions for Pyridium 200 mg Oral Tablet - take 1 tablet by ORAL route every 8 hours for 3 days; 9 tablet. Bactrim DS 800- 160 mg Oral Tablet - take 1 tablet by ORAL route every 12 hours for 7 days; 14 tablet. - Medication Reconciliation Form, Thank You Letter, Antibiotic Education, Prescription Opioid Use form. - Follow up: Darell Kaba MD; When: 5 - 6 days; Reason: Recheck today's complaints, Continuance of care, Re-evaluation by your physician. - Problem is new. - Symptoms have improved. Addendum: 05/16/2018 20:35 Co-signature as Attending Physician, Pierre Reynaga MD Available for consultation at p s1 all times . Signatures: Dispatcher [employer] EDMS Jenny Reed RN RN iw Roszak, Josh, PA PA jrHussein He RN RN laElizabeth Aleman RN RN jl7 Renee Mccall RN RN ea Singer, Phillip, MD MD ps1 Corrections: (The following items were deleted from the chart) 05/13 19:59 19:37 05/13/2018 19:37 Discharged to Home. Impression: Acute cystitis with hematuria. ea Condition is Stable. Forms are Medication Reconciliation Form, Thank You Letter, Antibiotic Education, Prescription Opioid Use. Follow up: Darell Kaba; When: 5 - 6 days; Reason: Recheck today's complaints, Continuance of care, Re-evaluation by your physician. Problem is new. Symptoms have improved. jr8
--- NOTE | 2018-05-13 19:38 | ER ---
Nurse's Notes [facility] Name: Betty Mckeon Age: 42 yrs Sex: Female : 1975 Arrival Date: 05/13/2018 Time: 18:20 Bed 6 Private MD: Darell Kaba E Diagnosis: Acute cystitis with hematuria Presentation: 05/13 18:25 Presenting complaint: Patient states: I have been having burning when I pee and blood la1 in my urine for the last 4 days. Transition of care: patient was not received from another setting of care. Onset of symptoms was May 13, 2018. Risk Assessment: Do you want to hurt yourself or someone else? Patient reports no desire to harm self or others. Initial Sepsis Screen: Does the patient meet any 2 criteria? No. Patient's initial sepsis screen is negative. Does the patient have a suspected source of infection? No. Patient's initial sepsis screen is negative. Care prior to arrival: None. 18:25 Method Of Arrival: Ambulatory la1 18:25 Acuity: JUANCARLOS 3 la1 Historical: - Allergies: 18:25 No Known Allergies; la1 - PMHx: 18:25 Bipolar disorder; chronic kidney disease; la1 - PSHx: 18:38 Hysterectomy; iw - Immunization history:: Adult Immunizations up to date. - Social history:: Smoking status: Patient uses tobacco products, smokes one-half pack cigarettes per day. - Ebola Screening: : No symptoms or risks identified at this time. Screenin:12 Abuse screen: Denies threats or abuse. Denies injuries from another. Nutritional jl7 screening: No deficits noted. Tuberculosis screening: No symptoms or risk factors identified. Fall Risk IV access (20 points). Total Cordova Fall Scale indicates No Risk (0-24 pts). Assessment: 18:45 General: Appears in no apparent distress. uncomfortable, Behavior is calm, cooperative, jl7 appropriate for age. Pain: Complains of pain in left flank Pain radiates to left lower quadrant. Neuro: Level of Consciousness is awake, alert, obeys commands, Oriented to person, place, time, situation. Cardiovascular: Patient's skin is warm and dry. Respiratory: Airway is patent Respiratory effort is even, unlabored, Respiratory pattern is regular, symmetrical. GI: No signs and/or symptoms were reported involving the gastrointestinal system. Patient currently denies diarrhea, pain, vomiting. : Urine is cloudy, Reports burning with urination. EENT: No signs and/or symptoms were reported regarding the EENT system. Derm: Skin is pink, warm \T\ dry. Musculoskeletal: No signs and/or symptoms reported regarding the musculoskeletal system. 19:31 General: Appears uncomfortable, Behavior is calm, cooperative, appropriate for age. ea Pain: Complains of pain in left flank and left lower quadrant. Neuro: Level of Consciousness is awake, alert, obeys commands, Oriented to person, place, time, situation. Cardiovascular: Patient's skin is warm and dry. Respiratory: Airway is patent Respiratory effort is even, unlabored, Respiratory pattern is regular, symmetrical. GI: Reports ABD pain. Derm: Skin is pink, warm \T\ dry. Musculoskeletal: Circulation, motion, and sensation intact. 19:57 Reassessment: Patient and/or family updated on plan of care and expected duration. Pain ea level reassessed. Patient is alert, oriented x 3, equal unlabored respirations, skin warm/dry/pink. Discharge instructions given to patient, verbalized the understanding of isntruction Patient states feeling better. Patient states symptoms have improved. Vital Signs: 18:26 BP 116 / 83; Pulse 81; Resp 18; Temp 98.4; Pulse Ox 98% on R/A; Weight 54.43 kg; Height la1 5 ft. 7 in. (170.18 cm); 19:12 BP 96 / 68; Pulse 73; Resp 16 S; Pulse Ox 100% on R/A; jl7 19:20 BP 105 / 82; Pulse 70; Resp 18; Pulse Ox 99% on R/A; ea 18:26 Body Mass Index 18.79 (54.43 kg, 170.18 cm) la1 ED Course: 18:20 Patient arrived in ED. mr 18:21 Darell Kaba MD is Private Physician. mr 18:26 Triage completed. la1 18:26 Arm band placed on left wrist. la1 18:29 Mian Lopez PA is PHCP. jr8 18:29 Pierre Reynaga MD is Attending Physician. jr8 18:55 CT Stone Protocol In Process Unspecified. EDMS 19:12 Patient has correct armband on for positive identification. Bed in low position. Call jl7 light in reach. Side rails up X 1. Pulse ox on. NIBP on. Warm blanket given. 19:12 Initial lab(s) drawn, by me, sent to lab. Urine collected: clean catch specimen, jl7 cloudy. Inserted saline lock: 20 gauge in right antecubital area, using aseptic technique. Blood collected. 19:28 Renee Mccall, COLETTE is Primary Nurse. ea 19:37 Darell Kaba MD is Referral Physician. jrElissa 19:58 No provider procedures requiring assistance completed. IV discontinued, intact, ea bleeding controlled, No redness/swelling at site. Pressure dressing applied. Administered Medications: 18:56 Not Given (Patient Refused): fentaNYL (PF) 50 mcg IVP once jl7 19:01 Drug: Zofran 4 mg Route: IVP; Site: right antecubital; jl7 19:15 Follow up: Response: No adverse reaction ea 19:03 Drug: morphine 4 mg Route: IVP; Site: right antecubital; jl7 19:15 Follow up: Response: No adverse reaction; Pain is decreased ea 19:35 Drug: Rocephin 1 grams Route: IV; Rate: calculated rate; Site: right antecubital; ea 19:55 Follow up: Response: No adverse reaction; IV Status: Completed infusion ea Outcome: 19:37 Discharge ordered by . jrElissa 19:58 Discharged to home ambulatory, with family. ea 19:58 Condition: improved 19:58 Discharge instructions given to patient, Instructed on discharge instructions, follow up and referral plans. medication usage, Demonstrated understanding of instructions, follow-up care, medications, Prescriptions given X 2. 19:59 Patient left the ED. ea Addendum: 05/16/2018 13:21 Addendum: Culture Results: Positive urine culture. Bacteria is resistant to, has m s intermediate sensitivity, or is not tested against prescribed antibiotics. Report given to SAL for further evaluation and then to tallow refiner for follow up with patient. Prescription called-in to pharmacy of choice. to [place], [place]. Pt also instructed to stop Bactrim per JUAN R Colbert. Signatures: Dispatcher [employer] EDSC Ceci Macario Irene, RN RN iw Solis, Maria ms Roszak, Josh, PA PA jr8 Hussein Pino RN RN la1 Leal, Jahala, RN RN jl7 Renee Mccall, RN RN ea
[2018-05-13] MEDS ORDERED: CEFTRIAXONE/SWI 1gm 1 GM/10 ML SYR ONE (19:45)
[2018-05-13 20:10] VITALS: TEMP 98.4
[2018-05-13 20:12] VITALS: BP 105/82; O2SAT 99
== END 2018-05-13 19:59 | disposition home or self-care (01) ==
LOC: ER 18:16
DX: N30.01 Acute cystitis with hematuria (principal); F17.210 Nicotine dependence, cigarettes, uncomplicated
CPT/HCPCS: 36415; 74176; 76377; 80048; 81003; 81015; 85025; 87077; 87086; 87088; 87186; 96365; 96375; 99284; J0696; J2405; J3010

== ENCOUNTER 2018-10-17 07:34 | Day surgery (SDC) | payer SELFPAY ==
--- OUTSIDE RECORDS SUMMARY | 2018-10-17 07:40 | XMS REPORT ---
:1975 [facility] [address] [place] [address] [address] [place] [address] Care Team Providers Name Role Phone Unavailable Unavailable Unavailable Problems This patient has no known problems. Allergies, Adverse Reactions, Alerts This patient has no known allergies or adverse reactions. Medications This patient has no known medications.
[2018-10-17] MEDS ORDERED: Ringers Lactate 1,000 ML IV ONE (08:06)
[2018-10-17] MEDS ORDERED: CEFAZOLIN/SWI 1gm 1 GM/10 ML SYR ONE (08:06)
[2018-10-17 08:10] LABS: Specific Gravity >= 1.030 (1.005-1.030)
[2018-10-17 08:10] LABS: Absolute Lymphocytes (CBC) 2.2 K/uL (0.7-4.9); Basophils % 0.8 % (0-1.3); Eosinophils % 1.1 % (0-4.4); Hematocrit 43.3 % (36.0-45.0); Lymphocytes % 19.9 % (15.3-44.8); MPV 7.9 fL (7.6-11.3); Monocytes % 8.9 % (3.3-12.3)
[2018-10-17] MEDS ORDERED: FENTANYL CITR 100 MCG/2 ML ONE (08:35)
[2018-10-17] MEDS ORDERED: LIDOCAINE 2% MPF 5 ML VIAL ONE (08:35)
[2018-10-17] MEDS ORDERED: KETOROLAC 30 MG/ML INJ ONE (08:35)
[2018-10-17] MEDS ORDERED: PROPOFOL 200 MG/20 ML VIAL IV ONE (08:35)
[2018-10-17] MEDS ORDERED: MIDAZOLAM HCL 2 MG/2 ML INJ ONE (08:35)
[2018-10-17] MEDS ORDERED: MORPHINE 10 MG/ML VIAL ONE ×2 (09:15→09:29)
[2018-10-17] MEDS ORDERED: ONDANSETRON 4 MG/2 ML VIAL ONE (09:32)
[2018-10-17] MEDS: MORPHINE 4 MG/ML SYR ONE ×4 (09:50→10:05)
--- NOTE | 2018-10-17 09:53 | RAD REPORT ---
EXAM DESCRIPTION: RAD - Hand Right 2 View - 10/17/2018 9:31 am CLINICAL HISTORY: Fifth metacarpal fracture FINDINGS: Nine intraoperative fluoroscopic spot image is submitted. They demonstrate pins affixing a metacarpal fracture of the fifth digit. Fluoroscopy time 0.4 minutes Examination was performed by Dr. Marc
[2018-10-17] MEDS: HYDROMORPHONE HCL 2 MG/ML inj ONE ×4 (10:12→10:40)
[2018-10-17] MEDS ORDERED: PROMETHAZINE 25 MG/ML VIAL ONE (10:34)
[2018-10-17 10:37] VITALS: TEMP 97.4
[2018-10-17] MEDS ORDERED: CODEINE 30MG/APAP 300MG TAB ONE (11:07)
[2018-10-17 11:59] VITALS: O2SAT 96
[2018-10-17 12:01] VITALS: BP 123/64
--- NOTE | 2018-10-18 12:32 | OP ---
Surgeon: José Marc MD Workers Compensation Analyst: None. Preoperative Diagnosis: Open fracture of the right fifth metacarpal. Postoperative Diagnosis: Open fracture of the right fifth metacarpal. Procedures Performed: 1.Debridement of skin and subcutaneous bone. 2.Open reduction and internal fixation. Anesthesia: General. Procedure In Detail: After satisfactory induction of general anesthesia, the hand was prepped with B etadine scrub and Betadine paint. Dry sterile drapes were applied in the usual manner. The arm was elevated, exsanguinated with an Esmarch. Tourniquet was inflated to 250 mmHg. This was done after a ttempted closed reduction was unsuccessful. The patient's hand was placed on [place] table. An isrrael ptical incision was made over the laceration site over dorsum of the metacarpal, extended proximally and distally. Dissection proceeded down and extensor tendon was retracted ulnarly. Dissection proce eded down to the bone, which was sticking right underneath the skin and radial to the tendon. The kiko tient had a comminuted fracture with bone fragments could not be reduced. Percutaneously, fragments were removed and then traction placed on the finger and K-wires were replaced from the distal to prox imal with the MCP at 90 degrees impaling the distal fracture into the proximal fracture. This was do ne with two 0.045 K-wires. C-arm guidance was used. Reduction was anatomic. At that point the tour niquet was released. Electrocautery was used for hemostasis. The periosteum and soft tissue were cl osed with 4-0 Vicryl. The skin was closed with horizontal mattresses, vertical mattress, and simple sutures of 4-0 Prolene, dressed with Xeroform, 2-inch Carol Ann and Kerlix and a fiberglass splint holdin g the wrist 10 degrees of dorsiflexion, MCP 90, PIP and DIP 0. The patient tolerated the procedure well an d returned to recovery room. GRANT/CHASIDY Voice ID: [id number] Report ID: [id number]
== END 2018-10-17 11:40 | disposition home or self-care (01) ==
LOC: OR 07:34
PROVIDERS: ATTEND Specialist
PROC: 0PSP04Z Reposition Right Metacarpal with Internal Fixation Device, Open Approach (ICD-10-PCS; principal; 2018-10-17 09:00)
DX: S62.306B Unspecified fracture of fifth metacarpal bone, right hand, initial encounter for open fracture (principal); X58.XXXA Exposure to other specified factors, initial encounter
CPT/HCPCS: 36415; 81025; 85025; 88304; 88305; 88311; J0690; J1170; J2250; J2405; J2550; J2704; J3010

== ENCOUNTER 2019-01-23 12:51 | Emergency (ER) | payer SELFPAY ==
[2019-01-23 13:58] LABS: Urine Blood NEGATIVE (NEG); Urine Glucose NEGATIVE (NEG); Urine Protein NEGATIVE (NEG)
--- NOTE | 2019-01-23 14:19 | ER ---
Nurse's Notes [facility] Name: Betty Mckeon Age: 43 yrs Sex: Female : 1975 Arrival Date: 01/23/2019 Time: 12:52 Bed 28 Private MD: Diagnosis: Urinary tract infection, site not specified Presentation: 01/23 12:54 Presenting complaint: Patient states: this morning my stomach and my side hurts really tw2 bad, the pain starts in my back on the LEFT side and goes to my stomach, i might have Urinary tract infection, i itch and it de leon and i feel nauseous and i am vomiting. Transition of care: patient was not received from another setting of care. Onset of symptoms was January 23, 2019. Risk Assessment: Do you want to hurt yourself or someone else? Patient reports no desire to harm self or others. Initial Sepsis Screen: Does the patient meet any 2 criteria? No. Patient's initial sepsis screen is negative. Does the patient have a suspected source of infection? No. Patient's initial sepsis screen is negative. Care prior to arrival: None. 12:54 Method Of Arrival: Ambulatory tw2 12:54 Acuity: JUANCARLOS 3 tw2 Triage Assessment: 12:57 General: Appears uncomfortable, slender, Behavior is calm, cooperative, appropriate for tw2 age. Pain: Complains of pain in left low back and left mid back Pain radiates to abdomen. GI: Abdomen is flat, Reports nausea. 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 - Social history:: Smoking status: Patient uses tobacco products, smokes one-half pack cigarettes per day. - Ebola Screening: : Patient denies travel to an Ebola-affected area in the 21 days before illness onset. Screenin:07 Abuse screen: Denies threats or abuse. Nutritional screening: No deficits noted. tw2 Tuberculosis screening: No symptoms or risk factors identified. Fall Risk None identified. Assessment: 14:10 General: Appears in no apparent distress. comfortable, Behavior is calm, cooperative. rv Pain: Complains of pain in back Pain radiates to abdomen. Neuro: Level of Consciousness is awake, alert, obeys commands, Oriented to person, place, time, situation. Cardiovascular: Patient's skin is warm and dry. Respiratory: Airway is patent. GI: Bowel sounds present X 4 quads. Abd is soft and non tender X 4 quads. Reports upper abdominal pain, nausea, vomiting. : No signs and/or symptoms were reported regarding the genitourinary system. EENT: No signs and/or symptoms were reported regarding the EENT system. Derm: Skin is intact. Musculoskeletal: No signs and/or symptoms reported regarding the musculoskeletal system. Vital Signs: 12:56 BP 118 / 91; Pulse 71; Resp 18; Temp 97.4(TE); Pulse Ox 100% on R/A; Weight 52.16 kg tw2 (R); Height 5 ft. 7 in. (170.18 cm) (R); Pain 10/10; 14:20 BP 112 / 89; Pulse 73; Resp 17; Pulse Ox 100% on R/A; rv 12:56 Body Mass Index 18.01 (52.16 kg, 170.18 cm) tw2 ED Course: 12:52 Patient arrived in ED. as 12:55 Triage completed. tw2 12:56 Arm band placed on. tw2 13:53 Bed in low position. Call light in reach. tw2 13:54 Ulices Martinez MD is Attending Physician. tw4 14:09 Girish Roberts RN is Primary Nurse. rv 14:21 No provider procedures requiring assistance completed. Patient did not have IV access rv during this emergency room visit. Administered Medications: No medications were administered Outcome: 14:17 Discharge ordered by . tw4 14:21 Discharged to home ambulatory. rv 14:21 Condition: good 14:21 Discharge instructions given to patient, Instructed on discharge instructions, follow up and referral plans. medication usage, Demonstrated understanding of instructions, follow-up care, medications, Prescriptions given X 2. 14:22 Patient left the ED. rv Signatures: Lynsey Franco Tara, RN RN tw2 Ulices Martinez MD MD tw4 Armando, Girish, RN RN rv Corrections: (The following items were deleted from the chart) 14:22 14:21 Discharge instructions given to patient, Instructed on discharge instructions, rv follow up and referral plans. medication usage, Demonstrated understanding of instructions, follow-up care, medications, Prescriptions given X 1, rv
--- NOTE | 2019-01-23 14:19 | EDPHYS ---
Physician Documentation [facility] Name: Betty Mckeon Age: 43 yrs Sex: Female : 1975 Arrival Date: 01/23/2019 Time: 12:52 Bed 28 Private MD: ED Physician Ulices Martinez HPI: 01/23 14:15 This 43 yrs old Female presents to ER via Ambulatory with complaints of tw4 Abdominal Pain. 14:15 The patient presents with urinary symptoms, dysuria. Onset: The symptoms/episode tw4 began/occurred today. Modifying factors: The symptoms are alleviated by nothing, the symptoms are aggravated by nothing. Associated signs and symptoms: The patient has no apparent associated signs or symptoms. The patient has not experienced similar symptoms in the past. 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 - Social history:: Smoking status: Patient uses tobacco products, smokes one-half pack cigarettes per day. - Ebola Screening: : Patient denies travel to an Ebola-affected area in the 21 days before illness onset. ROS: 14:15 Positive for burning with urination. tw4 14:15 Constitutional: Negative for fever, chills, and weight loss, Eyes: Negative for injury, pain, redness, and discharge, Cardiovascular: Negative for chest pain, palpitations, and edema, Respiratory: Negative for shortness of breath, cough, wheezing, and pleuritic chest pain, Abdomen/GI: Negative for abdominal pain, nausea, vomiting, diarrhea, and constipation, Back: Negative for injury and pain. 14:15 Skin: Negative for injury, rash, and discoloration, Neuro: Negative for headache, weakness, numbness, tingling, and seizure. 14:15 : Positive for burning with urination. Exam: 14:15 Constitutional: This is a well developed, well nourished patient who is awake, alert, tw4 and in no acute distress. Head/Face: Normocephalic, atraumatic. Chest/axilla: Normal chest wall appearance and motion. Nontender with no deformity. No lesions are appreciated. Cardiovascular: Regular rate and rhythm with a normal S1 and S2. No gallops, murmurs, or rubs. Normal PMI, no JVD. No pulse deficits. Respiratory: Lungs have equal breath sounds bilaterally, clear to auscultation and percussion. No rales, rhonchi or wheezes noted. No increased work of breathing, no retractions or nasal flaring. Abdomen/GI: Soft, non-tender, with normal bowel sounds. No distension or tympany. No guarding or rebound. No evidence of tenderness throughout. Back: No spinal tenderness. No costovertebral tenderness. Full range of motion. MS/ Extremity: Pulses equal, no cyanosis. Neurovascular intact. Full, normal range of motion. Neuro: Awake and alert, GCS 15, oriented to person, place, time, and situation. Cranial nerves II-XII grossly intact. Motor strength 5/5 in all extremities. Sensory grossly intact. Cerebellar exam normal. Normal gait. Vital Signs: 12:56 BP 118 / 91; Pulse 71; Resp 18; Temp 97.4(TE); Pulse Ox 100% on R/A; Weight 52.16 kg tw2 (R); Height 5 ft. 7 in. (170.18 cm) (R); Pain 10/10; 14:20 BP 112 / 89; Pulse 73; Resp 17; Pulse Ox 100% on R/A; rv 12:56 Body Mass Index 18.01 (52.16 kg, 170.18 cm) tw2 MDM: 13:54 Patient medically screened. tw4 14:15 Data reviewed: vital signs, nurses notes. Data interpreted: Pulse oximetry: tw4 Interpretation: normal. Counseling: I had a detailed discussion with the patient and/or guardian regarding: the historical points, exam findings, and any diagnostic results supporting the discharge/admit diagnosis, the presence of at least one elevated blood pressure reading (>120/80) during this emergency department visit, lab results. Special discussion: I discussed with the patient/guardian in detail that at this point there is no indication for admission to the hospital. It is understood, however, that if the symptoms persist or worsen the patient needs to return immediately for re-evaluation. 01/23 13:40 Order name: Urine Dipstick--Ancillary (enter results) bd Administered Medications: No medications were administered Disposition: 01/23/19 14:17 Discharged to Home. Impression: Urinary tract infection, site not specified. - Condition is Stable. - Discharge Instructions: Urinary Tract Infection, Adult. - Prescriptions for Pyridium 200 mg Oral Tablet - take 1 tablet by ORAL route every 8 hours for 3 days; 9 tablet. Macrobid 100 mg Oral Capsule - take 1 capsule by ORAL route every 12 hours for 10 days; 20 capsule. - Medication Reconciliation Form, Thank You Letter, Antibiotic Education, Prescription Opioid Use form. - Follow up: Private Physician; When: Upon discharge from the Emergency Department; Reason: If symptoms return, Recheck today's complaints, Continuance of care. - Problem is new. - Symptoms have improved. Signatures: Dispatcher [employer] EDKaren Lin RN RN tw2 Ulices Martinez MD MD tw4 Girish Roberts RN RN rv Corrections: (The following items were deleted from the chart) 14:22 14:17 01/23/2019 14:17 Discharged to Home. Impression: Urinary tract infection, site rv not specified. Condition is Stable. Forms are Medication Reconciliation Form, Thank You Letter, Antibiotic Education, Prescription Opioid Use. Follow up: Private Physician; When: Upon discharge from the Emergency Department; Reason: If symptoms return, Recheck today's complaints, Continuance of care. Problem is new. Symptoms have improved. tw4
[2019-01-23 15:38] VITALS: O2SAT 100
[2019-01-23 15:39] VITALS: BP 112/89
[2019-01-23 15:46] VITALS: TEMP 97.8
== END 2019-01-23 14:22 | disposition home or self-care (01) ==
LOC: ER 12:51
DX: N39.0 Urinary tract infection, site not specified (principal); F17.210 Nicotine dependence, cigarettes, uncomplicated; Z88.2 Allergy status to sulfonamides; Z88.5 Allergy status to narcotic agent; Z88.8 Allergy status to other drugs, medicaments and biological substances
CPT/HCPCS: 81003; 99282

== ENCOUNTER 2019-03-21 21:38 | Emergency (ER) | payer SELFPAY ==
--- OUTSIDE RECORDS SUMMARY | 2019-03-21 21:40 | XMS REPORT ---
:1975 [facility] Address [address] [place] [address] Care Team Providers Name Role Phone Unavailable Unavailable Unavailable Problems This patient has no known problems. Allergies, Adverse Reactions, Alerts This patient has no known allergies or adverse reactions. Medications This patient has no known medications.
[2019-03-21] MEDS ORDERED: NA CHLORIDE 0.9% 1,000 ML ONE (22:08)
[2019-03-21] MEDS ORDERED: MORPHINE 2 MG/ML SYR ONE (22:26)
--- NOTE | 2019-03-21 22:54 | RAD REPORT ---
EXAM DESCRIPTION: RAD - Chest Single View - 03/21/2019 10:37 pm CLINICAL HISTORY: Cough;Chest pain Chest pain. COMPARISON: Chest Single View dated 09/04/2017; CHEST SINGLE VIEW dated 06/03/2014; CHEST SINGLE VIEW dated 03/06/2014; CHEST SINGLE VIEW dated 02/24/2014 FINDINGS: Portable technique limits examination quality. The lungs are mildly emphysematous but grossly clear. The heart is normal in size. No displaced fract ures. IMPRESSION: Mild COPD.
[2019-03-22 00:12] LABS: Absolute Lymphocytes (CBC) 2.6 K/uL (0.7-4.9); Basophils % 0.7 % (0-1.3); Hematocrit 39.4 % (36.0-45.0); Lymphocytes % 29.3 % (15.3-44.8); MPV 8.3 fL (7.6-11.3); RBC Red Blood Cell Count 4.19 M/uL (3.86-4.86)
[2019-03-22] MEDS ORDERED: MORPHINE 2 MG/ML SYR ONE (00:18)
[2019-03-22] MEDS ORDERED: NA CHLORIDE 0.9% 1,000 ML ONE (00:18)
[2019-03-22 00:21] LABS: Potassium 3.7 mmol/L (3.5-5.1)
--- NOTE | 2019-03-22 00:57 | EDPHYS ---
Physician Documentation [facility] Name: Betty Mckeon Age: 43 yrs Sex: Female : 1975 Arrival Date: 03/21/2019 Time: 21:41 Bed 8 Private MD: ED Physician Darell Alatorre HPI: 03/21 22:10 This 43 yrs old Female presents to ER via Wheelchair with complaints of Cough.la1 22:10 The patient or guardian reports cough. Onset: The symptoms/episode began/occurred 4 la1 day(s) ago. Severity of symptoms: At their worst the symptoms were moderate. Modifying factors: The symptoms are alleviated by nothing, the symptoms are aggravated by nothing. Pt reports she had a fall a few days back and possibly has some rib fractures. Presents today with worsening cough and pain, states she has not urinated since the morning and feels like she is dehydrated and has a UTI. Pt was seen at [facility] recently for similar sx but states she did not want to drive that far. 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 - Social history:: Smoking status: Patient uses tobacco products, smokes one-half pack cigarettes per day, Patient uses street drugs, marijuana. - Ebola Screening: : Patient negative for fever greater than or equal to 101.5 degrees Fahrenheit, and additional compatible Ebola Virus Disease symptoms Patient denies exposure to infectious person. ROS: 22:11 Constitutional: Negative for fever, chills, and weight loss, Eyes: Negative for injury, la1 pain, redness, and discharge, ENT: Negative for injury, pain, and discharge, Neck: Negative for injury, pain, and swelling, Cardiovascular: Negative for chest pain, palpitations, and edema, Respiratory: + for cough and pleuritic chest pain Abdomen/GI: Negative for abdominal pain, nausea, vomiting, diarrhea, and constipation, Back: Negative for injury and pain, MS/Extremity: Negative for injury and deformity, Neuro: Negative for headache, weakness, numbness, tingling, and seizure. Exam: 22:12 Constitutional: appears malnourished, skinny. Head/Face: Normocephalic, atraumatic. la1 Eyes: Pupils equal round and reactive to light, extra-ocular motions intact. Periorbital areas with no swelling, redness, or edema. ENT: Nares patent. No nasal discharge, no septal abnormalities noted. Tympanic membranes are normal and external auditory canals are clear. Oropharynx with no redness, swelling, or masses, exudates, or evidence of obstruction, uvula midline. Mucous membranes dry Neck: Trachea midline, no thyromegaly or masses palpated, and no cervical lymphadenopathy. Supple, full range of motion without nuchal rigidity, or vertebral point tenderness. No Meningismus. Chest/axilla: Normal chest wall appearance and motion. no deformity. No lesions are appreciated. tenderness to palpation of left chest wall and left mid back Cardiovascular: Regular rate and rhythm with a normal S1 and S2. No gallops, murmurs, or rubs. Normal PMI, no JVD. No pulse deficits. Respiratory: Lungs have equal breath sounds bilaterally, clear to auscultation No rales, rhonchi or wheezes noted. No increased work of breathing, no retractions or nasal flaring. Abdomen/GI: Soft, non-tender, with normal bowel sounds. No distension No guarding or rebound. No evidence of tenderness throughout. MS/ Extremity: Pulses equal, no cyanosis. Neurovascular intact. Full, normal range of motion. Vital Signs: 21:55 BP 101 / 75; Pulse 75; Resp 18; Temp 98.4; Pulse Ox 20% ; Weight 52.16 kg; Height 5 ft. 5 in. (165.10 cm); 23:12 BP 127 / 82; Pulse 59; Resp 18; Pulse Ox 100% on R/A; 03/22 00:30 BP 125 / 83; Pulse 70; Resp 18; Pulse Ox 100% on R/A; 03/21 21:55 Body Mass Index 19.14 (52.16 kg, 165.10 cm) MDM: 03/21 21:47 Patient medically screened. la1 03/22 00:54 Data reviewed: vital signs, nurses notes, lab test result(s), radiologic studies, plain la1 films, I have discussed the patient's presentation/case with the attending Emergency Department Physician; and as a result, I will discharge patient. Data interpreted: Pulse oximetry: on room air is 100 %. Interpretation: normal. Counseling: I had a detailed discussion with the patient and/or guardian regarding: the historical points, exam findings, and any diagnostic results supporting the discharge/admit diagnosis, lab results, radiology results, the need for outpatient follow up, a family practitioner, to return to the emergency department if symptoms worsen or persist or if there are any questions or concerns that arise at home. Medication response: morphine markedly relieved the patient's pain. Symptoms have improved. ED course: Pt with normal CXR and labs, reports she is on amoxicillin reportedly from another facility but not getting better. Pt without CVA tenderness, fever, or elevation in WBC, tolerating PO, laying in bed comfortably. 03/21 22:02 Order name: CBC with Diff [facility] 03/21 22:02 Order name: BMP la 03/22 00:53 Order name: Urine Dipstick--Ancillary (enter results) [facility] 03/22 00:54 Order name: Urine Microscopic Only [facility] 03/22 00:54 Order name: Urine Culture [facility] 03/21 22:02 Order name: Urine Dipstick-Ancillary (obtain specimen); Complete Time: 00:52 [facility] 03/21 22:02 Order name: SL; Complete Time: 22:20 [facility] 03/21 22:36 Order name: Chest Single View; Complete Time: 23:01 EDMS Administered Medications: 03/21 22:20 Drug: NS 0.9% 1000 ml Route: IV; Rate: 1 bolus; Site: right antecubital; 23:43 Follow up: Response: No adverse reaction; IV Status: Completed infusion 22:27 Drug: morphine 2 mg {Note: RASS 0.} Route: IVP; Site: right antecubital; 23:43 Follow up: Response: No adverse reaction; Pain is decreased; RASS: Alert and Calm (0) 03/22 00:25 Drug: morphine 2 mg Route: IVP; Site: right antecubital; 01:13 Follow up: Response: No adverse reaction; Pain is decreased; RASS: Alert and Calm (0) 00:25 Drug: NS 0.9% 1000 ml Route: IV; Rate: 1000 ml; Site: right antecubital; 01:15 Follow up: Response: No adverse reaction; IV Status: Completed infusion 01:00 Drug: Macrobid 100 mg Route: PO; 01:13 Follow up: Response: No adverse reaction Disposition: 07:26 Co-signature as Attending Physician, Darell Alatorre MD I agree with the assessment and de plan of care. Disposition: 03/22/19 00:57 Discharged to Home. Impression: Acute cystitis, Cough. - Condition is Stable. - Discharge Instructions: Urinary Tract Infection, Adult, Cough, Adult, [id number]. - Prescriptions for Pyridium 200 mg Oral Tablet - take 1 tablet by ORAL route every 8 hours for 3 days; 9 tablet. Macrobid 100 mg Oral Capsule - take 1 capsule by ORAL route every 12 hours for 7 days; 14 capsule. - Medication Reconciliation Form, Thank You Letter, Antibiotic Education form. - Follow up: Private Physician; When: 2 - 3 days; Reason: Recheck today's complaints, Re-evaluation by your physician. Follow up: Emergency Department; When: As needed. - Problem is new. - Symptoms have improved. Signatures: Dispatcher [employer] EDMO Hussein Pino, TELEVISION SCRIPT WRITER-C TELEVISION SCRIPT WRITER-Cla1 John Monroe Darell Alatorre MD MD de Corrections: (The following items were deleted from the chart) 03/21 22:36 22:03 Chest Pa And Lat (2 Views)+[id number] ordered. EDMO EDMO 03/22 00:54 03/21 22:02 Urine Test ordered. la1 03/22 01:14 00:57 03/22/2019 00:57 Discharged to Home. Impression: Acute cystitis; Cough. Condition is Stable. Forms are Medication Reconciliation Form, Thank You Letter, Antibiotic Education, Prescription Opioid Use. Follow up: Private Physician; When: 2 - 3 days; Reason: Recheck today's complaints, Re-evaluation by your physician. Follow up: Emergency Department; When: As needed. Problem is new. Symptoms have improved. la1
--- NOTE | 2019-03-22 00:57 | ER ---
Nurse's Notes [facility] Name: Betty Mckeon Age: 43 yrs Sex: Female : 1975 Arrival Date: 03/21/2019 Time: 21:41 Bed 8 Private MD: Diagnosis: Acute cystitis;Cough Presentation: 03/21 21:51 Presenting complaint: Patient states: She was ssen here about 4 days ago when she wh tripped and fell hitting her left rib cage and was diagnosed with Rib Contusion and UTI. Pt states she was also seen in [place] 2 days ago for UTI. Pt states she woke up today having SOB and cough and pain on left rib cage and that she might have developed pneumonia. Transition of care: patient was not received from another setting of care. Onset of symptoms was March 21, 2019. Risk Assessment: Do you want to hurt yourself or someone else? Patient reports no desire to harm self or others. Initial Sepsis Screen: Does the patient meet any 2 criteria? No. Patient's initial sepsis screen is negative. Does the patient have a suspected source of infection? Yes: Productive cough/pneumonia. Care prior to arrival: None. 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 - Social history:: Smoking status: Patient uses tobacco products, smokes one-half pack cigarettes per day, Patient uses street drugs, marijuana. - Ebola Screening: : Patient negative for fever greater than or equal to 101.5 degrees Fahrenheit, and additional compatible Ebola Virus Disease symptoms Patient denies exposure to infectious person. Screenin:57 Abuse screen: Denies threats or abuse. Denies injuries from another. Nutritional screening: No deficits noted. Tuberculosis screening: No symptoms or risk factors identified. Fall Risk Fall in past 12 months (25 points). Assessment: 22:02 General: Appears in no apparent distress. Behavior is cooperative, appropriate for age. Pain: Complains of pain in left lateral anterior chest Pain does not radiate. Pain currently is 9 out of 10 on a pain scale. Quality of pain is described as aching, Pain began 2-3 days ago. Neuro: Level of Consciousness is awake, alert, obeys commands, Oriented to person, place, time, situation, Appropriate for age. Cardiovascular: Heart tones S1 S2. Respiratory: Reports shortness of breath cough that is Airway is patent Respiratory effort is even, unlabored, Respiratory pattern is regular, symmetrical, Breath sounds are clear in left lower lobe and right lower lobe Breath sounds with rhonchi. GI: Abdomen is flat, non-distended. : No signs and/or symptoms were reported regarding the genitourinary system. EENT: No signs and/or symptoms were reported regarding the EENT system. Derm: Skin is intact, is healthy with good turgor, Skin is pink, warm \T\ dry. normal. Musculoskeletal: Circulation, motion, and sensation intact. 23:12 Reassessment: Patient appears in no apparent distress at this time. No changes from previously documented assessment. Patient and/or family updated on plan of care and expected duration. Pain level reassessed. Patient is alert, oriented x 3, equal unlabored respirations, skin warm/dry/pink. 03/22 00:30 Reassessment: Patient appears in no apparent distress at this time. No changes from previously documented assessment. Patient and/or family updated on plan of care and expected duration. Pain level reassessed. Patient is alert, oriented x 3, equal unlabored respirations, skin warm/dry/pink. Vital Signs: 03/21 21:55 BP 101 / 75; Pulse 75; Resp 18; Temp 98.4; Pulse Ox 20% ; Weight 52.16 kg; Height 5 ft. 5 in. (165.10 cm); 23:12 BP 127 / 82; Pulse 59; Resp 18; Pulse Ox 100% on R/A; 03/22 00:30 BP 125 / 83; Pulse 70; Resp 18; Pulse Ox 100% on R/A; 03/21 21:55 Body Mass Index 19.14 (52.16 kg, 165.10 cm) ED Course: 03/21 21:41 Patient arrived in ED. ag3 21:47 Hussein Pino, [facility] la1 21:47 Darell Alatorre MD is Attending Physician. la1 21:51 John Monroe is Primary Nurse. 21:54 Triage completed. 21:57 Patient has correct armband on for positive identification. Bed in low position. Call light in reach. Side rails up X 1. Pulse ox on. NIBP on. 21:58 Arm band placed on right wrist. 22:17 Initial lab(s) drawn, by me, sent to lab. Inserted saline lock: 20 gauge in right cm6 antecubital area, using aseptic technique. 22:36 Chest Single View In Process Unspecified. EDMS 03/22 01:00 No provider procedures requiring assistance completed. IV discontinued, intact, bleeding controlled, No redness/swelling at site. Administered Medications: 03/21 22:20 Drug: NS 0.9% 1000 ml Route: IV; Rate: 1 bolus; Site: right antecubital; 23:43 Follow up: Response: No adverse reaction; IV Status: Completed infusion 22:27 Drug: morphine 2 mg {Note: RASS 0.} Route: IVP; Site: right antecubital; 23:43 Follow up: Response: No adverse reaction; Pain is decreased; RASS: Alert and Calm (0) 03/22 00:25 Drug: morphine 2 mg Route: IVP; Site: right antecubital; 01:13 Follow up: Response: No adverse reaction; Pain is decreased; RASS: Alert and Calm (0) 00:25 Drug: NS 0.9% 1000 ml Route: IV; Rate: 1000 ml; Site: right antecubital; 01:15 Follow up: Response: No adverse reaction; IV Status: Completed infusion 01:00 Drug: Macrobid 100 mg Route: PO; 01:13 Follow up: Response: No adverse reaction Outcome: 00:57 Discharge ordered by . la1 01:00 Discharged to home ambulatory, with family. 01:00 Condition: stable 01:00 Discharge instructions given to patient, family, Instructed on discharge instructions, follow up and referral plans. medication usage, POC Demonstrated understanding of instructions, follow-up care, medications, POC Prescriptions given X 2. 01:14 Patient left the ED. Signatures: Dispatcher [employer] EDHussein Hancock, TECHNICIAN SEMICONDUCTOR DEVELOPMENT-C TECHNICIAN SEMICONDUCTOR DEVELOPMENT-Cla1 John Monroe Alice ag3 Nikki Gaona cm6 Corrections: (The following items were deleted from the chart) 03/21 22:22 22:02 Respiratory: Airway is patent Respiratory effort is even, unlabored, Respiratory wh pattern is regular, symmetrical, Breath sounds are clear bilaterally. wh
[2019-03-22] MEDS ORDERED: NITROFURAN MACRO 100 MG CAP PO ONE (01:00)
[2019-03-22 01:08] LABS: Urine Culture Reflex Order NOT NEEDED
[2019-03-22 01:09] LABS: Urine Blood TRACE (NEG); Urine Glucose NEGATIVE (NEG); Urine Protein TRACE (NEG)
[2019-03-22 01:10] LABS: Urine Amorphous Sediment 3+ /HPF (NONE SEEN); Urine Bacteria >50 /HPF (<20); Urine RBC <5 /HPF (NONE SEEN)
[2019-03-22 09:35] VITALS: TEMP 98.4
[2019-03-22 09:36] VITALS: O2SAT 100
[2019-03-22 09:37] VITALS: BP 125/83
== END 2019-03-22 01:14 | disposition home or self-care (01) ==
LOC: ER 21:38
DX: R05 Cough (principal); N30.00 Acute cystitis without hematuria; Z88.6 Allergy status to analgesic agent; Z88.2 Allergy status to sulfonamides; F31.9 Bipolar disorder, unspecified; F17.210 Nicotine dependence, cigarettes, uncomplicated
CPT/HCPCS: 36415; 71045; 80048; 81003; 81015; 85025; 87086; 87088; 96361; 96374; 99284; J2270; J7030

== ENCOUNTER 2020-10-24 08:53 | Inpatient (IN) | payer SELFPAY ==
--- OUTSIDE RECORDS SUMMARY | 2020-10-24 08:56 | XMS REPORT | Continuity of Care Document ---
:1975 Author Organization [facility] t Address [address] [place] [address] Care Team Providers Name Role Phone Benny Valverde Attending Clinician Doctor Unassigned, Name Attending Clinician Unavailable Problems This patient has no known problems. Allergies, Adverse Reactions, Alerts This patient has no known allergies or adverse reactions. Medications This patient has no known medications. Procedures This patient has no known procedures. Encounters Start End Encounter Admission Attending Care Care Encounter Source Date/Time Date/Time Type Type Clinicians Facility Department ID 2020-02-21 2020-02-21 [facility] [id number] 05:42:39 23:59:00 Encounter Hubert GALVAN [id number] [facility] [id number] CENTER AT [id number] [address] 2019-08-28 2019-08-28 Orders Doctor OATES [id number] 00:00:00 00:00:00 Only UnassHORACE howell [id number] Marissa [facility] [id number] Results This patient has no known results.
[2020-10-24 09:43] LABS: Absolute Lymphocytes (CBC) 1.5 K/uL (0.7-4.9); Basophils % 0.6 % (0-1.3); Hematocrit 49.3 % (36.0-45.0); Lymphocytes % 7.8 % (15.3-44.8); RBC Red Blood Cell Count 5.29 M/uL (3.86-4.86)
[2020-10-24 09:44] LABS: Protime INR 1.12
[2020-10-24] MEDS ORDERED: ONDANSETRON 4 MG/2 ML VIAL ONE (09:52)
[2020-10-24] MEDS ORDERED: NA CHLORIDE 0.9% 1,000 ML ONE (09:53)
[2020-10-24 09:59] LABS: Urine Blood 1+ (Negative); Urine Glucose 2+ (Negative); Urine Protein 2+ (Negative); Urine Specific Gravity >=1.030 (1.005-1.030); Urine pH 5.5 (5.0-7.0)
--- NOTE | 2020-10-24 10:01 | RAD REPORT ---
EXAM DESCRIPTION: RAD - Chest Single View - 10/24/2020 9:39 am CLINICAL HISTORY: CHEST PAIN COMPARISON: Chest Single View dated 03/21/2019; Chest Single View dated 09/04/2017; CHEST SINGLE VIEW dated 06/03/2014; CHEST SINGLE VIEW dated 03/06/2014 FINDINGS: No evidence of edema or pneumonia. The heart size is within normal limits.No acute osseous abnormality. No significant pleural effusions or pneumothorax. IMPRESSION: No acute cardiopulmonary disease.
[2020-10-24] MEDS ORDERED: MORPHINE 4 MG/ML SYR ONE ×3 (10:12→18:40)
[2020-10-24] MEDS ORDERED: FAMOTIDINE 20 MG/2 ML VIAL IV ONE (10:13)
[2020-10-24 10:45] LABS: Blood Morphology Comment NOT SEEN (NOT SEEN); Platelet Estimate ADEQ; White Blood Cell Scan OK (OK)
[2020-10-24 10:57] LABS: Barbiturates NEGATIVE (NEGATIVE); Benzodiazepines POSITIVE (NEGATIVE); Cocaine POSITIVE (NEGATIVE); METHAMPHETAM NEGATIVE (NEGATIVE); Methadone NEGATIVE (NEGATIVE); Opiates NEGATIVE (NEGATIVE); Phencyclidine NEGATIVE (NEGATIVE); THC Cannibis POSITIVE (NEGATIVE)
[2020-10-24] MEDS ORDERED: VANCOMYCIN/NS 1 gm 1 GM/250 ML BAG IV ONE (11:00)
[2020-10-24 11:14] LABS: ALT/SGPT 17 U/L (12-78); AST/SGOT 8 U/L (15-37); Albumin 4.8 g/dL (3.4-5.0); Alkaline Phosphatase 103 U/L (45-117); BUN Blood Urea Nitrogen 17 mg/dL (7-18); Bicarbonate 24 mmol/L (21-32); Bilirubin Direct 0.1 mg/dL (0-0.2); Bilirubin Total 0.6 mg/dL (0.2-1.0); Glucose Level 265 mg/dL (74-106); Lipase 44 U/L (73-393); Magnesium 2.2 mg/dL (1.8-2.4); NT PRO-BNP 11 pg/mL (<125); Protein, Total 8.9 g/dL (6.4-8.2); Sodium Level 139 mmol/L (136-145); Troponin (Emerg Dept Use Only) < 0.02 ng/mL (0.0-0.045)
[2020-10-24] MEDS ORDERED: PIPERACIL/TAZO 3.375 GM VIAL IV ONE (11:14)
[2020-10-24] MEDS ORDERED: NA CHLORIDE 0.9% 100 ML ONE ×2 (11:14→14:22)
--- NOTE | 2020-10-24 11:42 | EKG ---
Test Date: 2020-10-24 Test Time: 09:28:09 Technical Planner: DENI MEASUREMENT RESULTS: Intervals: Rate: 89 OR: 166 QRSD: 80 QT: 336 QTc: 408 [place]: P: 32 OR: 166 QRS: 71 T: 134 INTERPRETIVE STATEMENTS: Normal sinus rhythm ST & T wave abnormality, consider inferior ischemia Abnormal ECG Compared to ECG 09/04/2017 11:28:48 ST (T wave) deviation now present Possible ischemia now present Sinus arrhythmia no longer present Left ventricular hypertrophy no longer present Electronically Signed On 10-24-20 11:41:57 CDT by Logan Reyes
--- NOTE | 2020-10-24 11:43 | RAD REPORT ---
EXAM DESCRIPTION: CTAbdomen Pelvis W Contrast - 10/24/2020 11:33 am CLINICAL HISTORY: Abdominal pain. ABD PAIN COMPARISON: Abdomen Pelvis W Contrast dated 09/13/2017; Abdomen Pelvis W Contrast dated 09/04/2017; Abdomen Pelvis W Contrast dated 05/10/2016 TECHNIQUE: Biphasic CT imaging of the abdomen and pelvis was performed with 100 ml non-ionic IV cont rast. All CT scans are performed using dose optimization technique as appropriate and may include automated exposure control or mA/KV adjustment according to patient size. FINDINGS: The lung bases are clear. No focal liver lesions are identified. The adrenal glands are unremarkable. Subcentimeter low-density renal lesions which are statistically benign. The spleen is unremarkable. Mild thickening distal eso phagus which may reflect reflux esophagitis. No retroperitoneal lymphadenopathy. Aortic atheroscleros is. Diffuse colonic wall thickening and mild hyperenhancement. The appendix is normal. No evidence of s ignificant lymphadenopathy. No suspicious bony findings. IMPRESSION: Findings consistent with a mild pancolitis. No bowel obstruction.
[2020-10-24 12:00] LABS: Urine Bacteria >50 /HPF (<20); Urine RBC <5 /HPF (NONE SEEN)
[2020-10-24] MEDS ORDERED: KCL 20 MEQ/100 mL IVPB 20 MEQ/100 ML BAG IV ONE (14:22)
--- NOTE | 2020-10-24 16:12 | ER ---
Nurse's Notes [facility] Name: Betty Mckeon Age: 45 yrs Sex: Female : 1975 Arrival Date: 10/24/2020 Time: 08:54 Bed 13 Private MD: Darell Kaba E Diagnosis: Ulcerative (chronic) pancolitis without complications;Abdominal pain, Generalized;Nausea;Vomiting;Hypokalemia;Dehydration Presentation: 10/24 09:03 Chief complaint: Patient states: went to [facility] yesterday and since then she's iw been puking and her chest hurts and her stomach hurts , thinks she has food poisoning. Coronavirus screen: Client presents with at least one sign or symptom that may indicate coronavirus-19. Ebola Screen: Patient negative for fever greater than or equal to 101.5 degrees Fahrenheit, and additional compatible Ebola Virus Disease symptoms Patient denies exposure to infectious person. Patient denies travel to an Ebola-affected area in the 21 days before illness onset. No symptoms or risks identified at this time. Initial Sepsis Screen: Does the patient meet any 2 criteria? No. Patient's initial sepsis screen is negative. Does the patient have a suspected source of infection? No. Patient's initial sepsis screen is negative. Risk Assessment: Do you want to hurt yourself or someone else? Patient reports no desire to harm self or others. Onset of symptoms was October 23, 2020. 09:03 Method Of Arrival: Ambulatory iw 09:03 Acuity: JUANCARLOS 3 iw Historical: - Allergies: 09:05 sulfamethoxazole; iw 09:05 Fentanyl; iw 09:05 tramadol; iw - Home Meds: 09:05 None [Active]; iw - PMHx: 09:05 Bipolar disorder; chronic kidney disease; iw - PSHx: 09:05 section; Tonsillectomy; iw 09:07 hysterectomy; iw - Immunization history:: Client reports having NOT received the Covid vaccine. - Social history:: Smoking status: Patient reports the use of cigarette tobacco products, Patient/guardian denies using alcohol, street drugs. Screenin:11 Abuse screen: Denies threats or abuse. Denies injuries from another. Nutritional iw screening: No deficits noted. Tuberculosis screening: No symptoms or risk factors identified. Fall Risk None identified. Assessment: 09:10 General: Appears distressed, uncomfortable, Behavior is crying, fussy. Pain: Complains iw of pain in chest and abdomen Pain does not radiate. Pain began 2-3 days ago. Is continuous. Neuro: Level of Consciousness is awake, alert, obeys commands, Oriented to person, place, time, situation, Moves all extremities. Cardiovascular: Reports chest pain, Patient's skin is warm and dry. GI: Reports lower abdominal pain, upper abdominal pain, nausea, vomiting. Derm: Skin is intact. 10:38 Reassessment: Patient appears in no apparent distress at this time. Patient and/or iw family updated on plan of care and expected duration. Pain level reassessed. Patient states feeling better. Patient states symptoms have improved. 11:12 Reassessment: Patient appears in no apparent distress at this time. pt sleeping, mother iw at bedside. 13:12 Reassessment: Patient appears in no apparent distress at this time. Patient and/or zb family updated on plan of care and expected duration. Pain level reassessed. pt c/o pain. notified ecp medication given. 14:20 Reassessment: PO challenge completed. no current n/v with ice chips. zb 15:00 Reassessment: Patient appears in no apparent distress at this time. Patient and/or zb family updated on plan of care and expected duration. Pain level reassessed. Patient is alert, oriented x 3, equal unlabored respirations, skin warm/dry/pink. patient appears to be sleeping at this time. 16:02 Reassessment: Patient appears in no apparent distress at this time. Patient and/or zb family updated on plan of care and expected duration. Pain level reassessed. patient appears to be sleeping at this time. Vital Signs: 09:06 BP 135 / 110; Pulse 117; Resp 18 S; Temp 97.7; Pulse Ox 100% on R/A; Weight 58.97 kg; iw Height 5 ft. 7 in. (170.18 cm); Pain 10/10; 09:33 BP 130 / 115; Pulse 100; Resp 16; Pulse Ox 98% on R/A; iw 09:59 BP 150 / 74; Pulse 98; Resp 16; Pulse Ox 98% on R/A; iw 13:13 Pulse 85; Resp 18; Pulse Ox 100% on R/A; zb 14:26 BP 151 / 100; Pulse 75; Resp 16; Pulse Ox 100% on R/A; zb 15:30 BP 140 / 85; Pulse 76; Resp 16; Pulse Ox 100% on R/A; zb 09:06 Body Mass Index 20.36 (58.97 kg, 170.18 cm) iw ED Course: 08:54 Patient arrived in ED. mr 08:54 Darell Kaba MD is Private Physician. mr 09:05 Triage completed. iw 09:06 Arm band placed on. iw 09:10 Jenny Reed, RN is Primary Nurse. iw 09:16 Zana Christian MD is Attending Physician. kdr 09:21 Inserted saline lock: 20 gauge in right forearm, using aseptic technique. Blood dh3 collected. 09:21 Initial lab(s) drawn, by me, sent to lab. dh3 09:31 EKG done, by ED staff, reviewed by Zana Christian MD. dh3 09:39 XRAY Chest (1 view) In Process Unspecified. EDMS 11:33 CT Abd/Pelvis - IV Contrast Only In Process Unspecified. EDMS 13:14 Patient has correct armband on for positive identification. Bed in low position. Call zb light in reach. Side rails up X 1. Report received from COLETTE Alvarado. air sampling and monitoring on. Pulse ox on. NIBP on. 16:07 Omero Tong MD is Hospitalizing Provider. kdr 18:00 No provider procedures requiring assistance completed. Patient admitted, IV remains in bb place. Patient maintains SpO2 saturation greater than 95% on room air. 10/25 06:31 Primary Nurse role handed off by Jenny Reed RN eb 07:02 Nena Landry, COLETTE is Primary Nurse. ph Administered Medications: 10/24 09:34 Drug: NS 0.9% 1000 ml Route: IV; Rate: 1 bolus; Site: right wrist; iw 10/25 00:04 Follow up: Response: No adverse reaction; IV Status: Completed infusion; IV Intake: bb 1000ml 10/24 09:34 Drug: Zofran (Ondansetron) 4 mg Route: IVP; Site: right wrist; iw 12:30 Follow up: Response: No adverse reaction; Marked relief of symptoms bb 09:59 Drug: morphine 4 mg Route: IVP; Site: right wrist; iw 12:00 Follow up: Response: No adverse reaction bb 09:59 Drug: Pepcid (famotidine) 20 mg Route: IVP; Site: right wrist; iw 12:00 Follow up: Response: No adverse reaction bb 11:00 Drug: Zosyn (piperacillin-tazobactam) 3.375 grams Route: IVPB; Infused Over: 60 mins; iw Site: right wrist; 15:45 Follow up: IV Status: Completed infusion; IV Intake: 100ml bb 11:52 Drug: vancoMYCIN 1 grams Route: IVPB; Infused Over: 2 hrs; Site: right wrist; iw 13:30 Follow up: IV Status: Completed infusion; IV Intake: 250ml bb 13:12 Drug: morphine 4 mg {Note: RASS +1.} Route: IVP; Site: right wrist; zb 15:00 Follow up: Response: No adverse reaction; Marked relief of symptoms; Pain is decreased; bb RASS: Drowsy (-1) 14:20 Drug: Potassium Chloride 20 mEq Route: IV; Rate: calculated rate; Site: right wrist; zb 10/25 00:04 Follow up: Response: No adverse reaction; Marked relief of symptoms; IV Status: bb Completed infusion; IV Intake: 100ml Intake: 10/24 13:30 IV: 250ml; Total: 250ml. bb 15:45 IV: 100ml; Total: 350ml. bb 10/25 00:04 IV: 100ml; Total: 450ml. bb 00:04 IV: 1000ml; Total: 1450ml. bb Outcome: 10/24 16:11 Decision to Hospitalize by Provider. kdr 18:00 Admitted to ER Hold. Please see [facility] for further documentation. bb 18:00 Instructed on the need for admit. 10/25 00:06 Condition: stable bb 14:33 Patient left the ED. eb Signatures: Dispatcher [employer] EDMS Zana Christian MD MD kdr Rivera, Marline Mcintyre RN RN bb Williams, Irene, RN RN Nena Landry RN RN Gely Cabello [facility] Julieta Spain Zipporah, RN RN zb Corrections: (The following items were deleted from the chart) 10/24 13:13 13:12 Reassessment: pt c/o pain. notified ecp medication given. quintin ribeiro 14:22 14:20 Reassessment: PO challenge completed. quintin ribeiro
--- NOTE | 2020-10-24 16:12 | EDPHYS ---
Physician Documentation [facility] Name: Betty Mckeon Age: 45 yrs Sex: Female : 1975 Arrival Date: 10/24/2020 Time: 08:54 Bed 13 Private MD: Darell Kaba E ED Physician Zana Christian Historical: - Allergies: 10/24 09:05 sulfamethoxazole; iw 09:05 Fentanyl; iw 09:05 tramadol; iw - Home Meds: 09:05 None [Active]; iw - PMHx: 09:05 Bipolar disorder; chronic kidney disease; iw - PSHx: 09:05 section; Tonsillectomy; iw 09:07 hysterectomy; iw - Immunization history:: Client reports having NOT received the Covid vaccine. - Social history:: Smoking status: Patient reports the use of cigarette tobacco products, Patient/guardian denies using alcohol, street drugs. Vital Signs: 09:06 BP 135 / 110; Pulse 117; Resp 18 S; Temp 97.7; Pulse Ox 100% on R/A; Weight 58.97 kg; iw Height 5 ft. 7 in. (170.18 cm); Pain 10/10; 09:33 BP 130 / 115; Pulse 100; Resp 16; Pulse Ox 98% on R/A; iw 09:59 BP 150 / 74; Pulse 98; Resp 16; Pulse Ox 98% on R/A; iw 13:13 Pulse 85; Resp 18; Pulse Ox 100% on R/A; zb 14:26 BP 151 / 100; Pulse 75; Resp 16; Pulse Ox 100% on R/A; zb 15:30 BP 140 / 85; Pulse 76; Resp 16; Pulse Ox 100% on R/A; zb 09:06 Body Mass Index 20.36 (58.97 kg, 170.18 cm) iw MDM: 12:23 ED course: HOSPITALIST PHYSICIAN: 030/010/000: 190. kdr 16:11 Patient medically screened. kdr 10/24 09:12 Order name: Basic Metabolic Panel; Complete Time: 12:06 iw 10/24 09:12 Order name: CBC with Diff; Complete Time: 10:59 iw 10/24 09:12 Order name: LFT's; Complete Time: 12:06 iw 10/24 09:12 Order name: Magnesium; Complete Time: 12:06 10/24 09:12 Order name: NT PRO-BNP; Complete Time: 12:06 10/24 09:12 Order name: PT-INR; Complete Time: 10:19 10/24 09:12 Order name: Troponin (emerg Dept Use Only); Complete Time: 12:06 10/24 09:12 Order name: Lipase; Complete Time: 12:06 10/24 09:37 Order name: Urine Drug Screen; Complete Time: 10:59 [facility] 10/24 09:46 Order name: CBC Smear Scan; Complete Time: 10:59 EDPR 10/24 09:58 Order name: Urine Dipstick-Ancillary; Complete Time: 10:19 [facility] 10/24 10:56 Order name: Urine Microscopic Only; Complete Time: 12:06 dh3 10/24 12:01 Order name: Urine Culture [facility] 10/24 09:12 Order name: XRAY Chest (1 view); Complete Time: 10:19 10/24 09:37 Order name: CT Abd/Pelvis - IV Contrast Only; Complete Time: 12:06 [facility] 10/24 17:32 Order name: Basic Metabolic Panel [facility] 10/24 17:32 Order name: Basic Metabolic Panel [facility] 10/24 17:32 Order name: CBC with Automated Diff [facility] 10/24 17:32 Order name: CBC with Automated Diff [facility] 10/24 17:32 Order name: Lipid Profile [facility] 10/24 17:32 Order name: Lipid Profile [facility] 10/24 17:32 Order name: Troponin I [facility] 10/24 17:32 Order name: Troponin I [facility] 10/24 17:32 Order name: Troponin I [facility] 10/24 17:58 Order name: SARS-COV-2 RT PCR [facility] 10/25 05:39 Order name: Creatine Phosphokinase [facility] 10/24 09:12 Order name: EKG; Complete Time: 09:13 10/24 09:12 Order name: Cardiac monitoring; Complete Time: 09:32 10/24 09:12 Order name: EKG - Nurse/Tech; Complete Time: 09:32 10/24 09:12 Order name: IV Saline Lock; Complete Time: 09:32 10/24 09:12 Order name: Labs collected and sent; Complete Time: 09:32 10/24 09:12 Order name: O2 Per Protocol; Complete Time: 09:32 iw 10/24 09:12 Order name: O2 Sat Monitoring; Complete Time: 09:32 10/24 13:19 Order name: PO challenge; Complete Time: 14:20 [facility] 10/24 17:31 Order name: Heart Healthy EDMS 10/24 17:31 Order name: EKG Electrocardiogram EDMS 10/24 17:31 Order name: EKG Electrocardiogram EDMS Administered Medications: 09:34 Drug: NS 0.9% 1000 ml Route: IV; Rate: 1 bolus; Site: right wrist; iw 10/25 00:04 Follow up: Response: No adverse reaction; IV Status: Completed infusion; IV Intake: bb 1000ml 10/24 09:34 Drug: Zofran (Ondansetron) 4 mg Route: IVP; Site: right wrist; iw 12:30 Follow up: Response: No adverse reaction; Marked relief of symptoms bb 09:59 Drug: morphine 4 mg Route: IVP; Site: right wrist; iw 12:00 Follow up: Response: No adverse reaction bb 09:59 Drug: Pepcid (famotidine) 20 mg Route: IVP; Site: right wrist; iw 12:00 Follow up: Response: No adverse reaction bb 11:00 Drug: Zosyn (piperacillin-tazobactam) 3.375 grams Route: IVPB; Infused Over: 60 mins; iw Site: right wrist; 15:45 Follow up: IV Status: Completed infusion; IV Intake: 100ml bb 11:52 Drug: vancoMYCIN 1 grams Route: IVPB; Infused Over: 2 hrs; Site: right wrist; iw 13:30 Follow up: IV Status: Completed infusion; IV Intake: 250ml bb 13:12 Drug: morphine 4 mg {Note: RASS +1.} Route: IVP; Site: right wrist; zb 15:00 Follow up: Response: No adverse reaction; Marked relief of symptoms; Pain is decreased; bb RASS: Drowsy (-1) 14:20 Drug: Potassium Chloride 20 mEq Route: IV; Rate: calculated rate; Site: right wrist; zb 10/25 00:04 Follow up: Response: No adverse reaction; Marked relief of symptoms; IV Status: bb Completed infusion; IV Intake: 100ml Disposition Summary: 10/24/20 16:11 Hospitalization Ordered Hospitalization Status: Observation kdr Provider: Omero Tong kdr Condition: Fair kdr Problem: an acute exacerbation kdr Symptoms: have improved kdr Bed/Room Type: Standard kdr Location: [facility] ER HOLD(10/24/20 21:30) tl1 Room Assignment: ERHOLD-(10/24/20 21:30) tl1 Diagnosis - Ulcerative (chronic) pancolitis without complications kdr - Abdominal pain, Generalized kdr - Nausea kdr - Vomiting kdr - Hypokalemia kdr - Dehydration kdr Forms: - Medication Reconciliation Form kdr - SBAR form kdr Signatures: Dispatcher [employer] EDMS Zana Christian MD MD kdr Marline Suarez RN RN bb Jenny Reed RN RN iw Sandra Crocker RN RN tl1 Kristine Zuluaga RN RN zb Corrections: (The following items were deleted from the chart) 10/24 17:04 16:39 CORONAVIRUS+MRALAN.BRZ ordered. [facility] EDPR 21:30 16:11 Telemetry/MedSurg (observation) kdr tl1 21:30 16:11 kdr tl1
[2020-10-24] MEDS ORDERED: ALPRAZOLAM 0.5 MG TABLET PO PRN (17:26)
[2020-10-24] MEDS ORDERED: ACETAMINOPHEN 500 MG TAB PO PRN (17:26)
[2020-10-24] MEDS ORDERED: ONDANSETRON 4 MG/2 ML VIAL IV PRN (17:26)
[2020-10-24] MEDS ORDERED: ALPRAZOLAM 0.25 MG TABLET PO PRN (17:26)
[2020-10-24] MEDS: MORPHINE 4 MG/ML SYR IV PRN (18:30)
[2020-10-24] MEDS: ENOXAPARIN 40 MG/0.4 ML SQ SCH (19:00)
[2020-10-24] MEDS ORDERED: METOPROLOL TAR 25 MG TAB PO SCH (21:00)
[2020-10-24] MEDS ORDERED: ENOXAPARIN 40 MG/0.4 ML SQ ONE (21:45)
[2020-10-24] MEDS ORDERED: METOPROLOL TAR 25 MG TAB ONE (21:45)
[2020-10-24 22:33] VITALS: BMI 20.3
--- NOTE | 2020-10-24 23:38 | P.HP ---
Certification for Inpatient Patient admitted to: Observation With expected LOS: <2 Midnights Patient will require the following post-hospital care: None Practitioner: I am a practitioner with admitting privileges, knowledge of patient current condition, hospital course, and medical plan of care. Services: Services provided to patient in accordance with Admission requirements found in Title 42 Section 412.3 of the Code of Federal Regulations Patient History Date of Service: 10/24/20 Reason for admission: Intractable nausea and vomiting History of Present Illness: Patient is a 45-year-old female who states she was eating out with her family at [employer]. and she was eating a crab and shrimp dish which she felt was sour. Afterwards, patient started having some nausea and vomiting. Patient has been in the hospital for similar issues in the past. At that time, she had used synthetic marijuana along with cocaine and benzodiazepines. This admission she has pretty much similar urine drug screen. Patient had a CT scan which revealed a mild colitis. Decision was made to admit the patient to the hospital for further evaluation. Patient had a leukocytosis. Creatinine is mildly elevated. Will admit the patient for IV fluids and anti emetics. Patient with pancolitis and will check a stool studies. Also with urinary tract infection so will check cultures and continue with antibiotic therapy to cover the colitis & the UTI. Allergies fentanyl Adverse Reaction (Verified 10/17/18 08:01) Nausea/Vomiting sulfamethoxazole [From Bactrim] Adverse Reaction (Verified 06/03/14 20:35) yeast infection tramadol Adverse Reaction (Verified 10/17/18 08:02) Nausea/Vomiting Home Medications: LORazepam [Ativan*] 1 mg PO TID PRN 06/03/14 Codeine/APAP [Tylenol W/Codeine #3 tab] 1 tab PO TIDP PRN #15 tab 06/05/14 Cephalexin [Keflex*] 500 mg PO Q6H 10/17/18 - Past Medical/Surgical History Has patient received pneumonia vaccine in the past: No Diabetic: No -: Chronic kidney disease -: Bipolar disorder -: Substance abuse -: x3, tonsilectomy, mole removal - Family History Mother Medical History: Heart disease - Social History Smoking Status: Current every day smoker Alcohol use: Yes CD- Drugs: Yes Review of Systems 10-point ROS is otherwise unremarkable Physical Examination - Vital Signs Temperature: 99 F Blood Pressure: 104/67 Pulse: 88 Respirations: 18 Pulse Ox (%): 98 - Physical Exam General: Alert, In no apparent distress, Oriented x3 HEENT: Atraumatic, PERRLA, Mucous membr. moist/pink, Other (Very poor dentition), EOMI, Sclerae nonicteric Neck: Supple, 2+ carotid pulse no bruit, No LAD, Without JVD or thyroid abnormality Respiratory: Clear to auscultation bilaterally, Normal air movement Cardiovascular: Regular rate/rhythm, Normal S1 S2, No murmurs Gastrointestinal: Normal bowel sounds, Soft and benign, Non-distended, No tenderness Musculoskeletal: No clubbing, No swelling, No tenderness Integumentary: No rashes Neurological: Normal gait, Normal speech, Normal strength at 5/5 x4 extr, Normal tone, Sensation intact, Cranial nerves 3-12 intact, Normal affect Lymphatics: No axilla or inguinal lymphadenopathy - Studies Laboratory Data (last 24 hrs) 10/24/20 09:21: PT 12.9 H, INR 1.12 10/24/20 09:21: WBC 19.40 H, Hgb 16.5 H, Hct 49.3 H, Plt Count 360 10/24/20 09:21: Sodium 139, Potassium 3.0 L, BUN 17, Creatinine 1.49 H, Glucose 265 H, Magnesium 2.2, Total Bilirubin 0.6, AST 8 L, ALT 17, Alkaline Phosphatase 103, Lipase 44 L Assessment & Plan - Problems (Diagnosis) (1) Pancolitis Current Visit: Yes Status: Acute (2) Intractable nausea and vomiting Current Visit: Yes Status: Acute (3) Polysubstance abuse Current Visit: Yes Status: Acute (4) Acute kidney injury superimposed on chronic kidney disease Current Visit: Yes Status: Acute (5) Urinary tract infectious disease Onset Date: 03/06/14 Current Visit: No Status: Acute Qualifiers: Urinary tract infection type: acute cystitis - Plan 1. Continue with IV hydration 2. Continue with IV antibiotics 3. Continue with pain control and anxiolytics as needed 4. NPO tonight and start full liquid diet in the morning 5. Outpatient GI consultation for colonoscopy 6. Repeat CBC and also check a CPK level as well as monitor renal function 7. Counseled regarding drug abuse 8. GI and DVT prophylaxis Discharge Plan: Home Plan to discharge in: Greater than 2 days - Advance Directives Does patient have a Living Will: No Does patient have a Durable POA for Healthcare: No - Code Status/Comfort Care Code Status Assessed: Yes Code Status: Full Code Critical Care: No Time Spent Managing PTS Care (In Minutes): 45
[2020-10-24] MEDS ORDERED: NA CHLORIDE 0.9% 1,000 ML IV SCH (23:45)
[2020-10-25] MEDS: MORPHINE 4 MG/ML SYR IV PRN ×3 (00:22→10:29)
[2020-10-25] MEDS ORDERED: MORPHINE 4 MG/ML SYR ONE ×3 (00:32→10:30)
[2020-10-25] MEDS ORDERED: NA CHLORIDE 0.9% 1,000 ML ONE (00:32)
[2020-10-25] MEDS ORDERED: NA CHLORIDE 0.9% 100 ML ONE ×2 (02:30→08:44)
[2020-10-25] MEDS ORDERED: PIPERACIL/TAZO 3.375 GM VIAL IV ONE ×3 (02:30→08:44)
[2020-10-25 05:41] LABS: BUN Blood Urea Nitrogen 10 mg/dL (7-18); Bicarbonate 24 mmol/L (21-32); Glucose Level 95 mg/dL (74-106); HDL Cholesterol 40 mg/dL (40-60); LDL Cholesterol, Calculated 105 (<130); Potassium 3.4 mmol/L (3.5-5.1); Sodium Level 140 mmol/L (136-145); Troponin I < 0.02 ng/mL (0.0-0.045)
[2020-10-25 05:42] LABS: Absolute Lymphocytes (CBC) 3.7 K/uL (0.7-4.9); Basophils % 0.8 % (0-1.3); Lymphocytes % 41.2 % (15.3-44.8); MPV 7.7 fL (7.6-11.3); RBC Red Blood Cell Count 4.15 M/uL (3.86-4.86)
[2020-10-25] MEDS ORDERED: NA CHLORIDE 0.9% 1,000 ML IV SCH (06:52)
[2020-10-25] MEDS ORDERED: HYDROCODONE/APAP 7.5/325 MG TAB PO PRN (06:52)
[2020-10-25] MEDS ORDERED: ASPIRIN EC 81 MG TAB PO ONE (08:44)
[2020-10-25] MEDS ORDERED: ENOXAPARIN 40 MG/0.4 ML SQ ONE (08:44)
[2020-10-25] MEDS ORDERED: ASPIRIN EC 81 MG TAB PO SCH (09:00)
[2020-10-25] MEDS ORDERED: lisinopriL 10 MG TAB PO SCH (09:00)
[2020-10-25] MEDS: ENOXAPARIN 40 MG/0.4 ML SQ SCH (09:00)
[2020-10-25] MEDS ORDERED: PIPER/TAZO/NS 3.375gm 3.375 GM/100 ML BAG IVPB SCH ×2 (10:00)
--- NOTE | 2020-10-25 14:53 | P.DS ---
Admission Date: 10/25/20 Discharge Date: 10/25/20 Primary Care Provider: none Disposition: ROUTINE DISCHARGE Discharge Condition: GOOD Reason for Admission: Intractable nausea and vomiting Consultations: none Procedures: CXR: COMPARISON: Chest Single View dated 03/21/2019; Chest Single View dated 09/04/2017; CHEST SINGLE VIEW dated 06/03/2014; CHEST SINGLE VIEW dated 03/06/2014 FINDINGS: No evidence of edema or pneumonia. The heart size is within normal limits.No acute osseous abnormality. No significant pleural effusions or pneumothorax. IMPRESSION: No acute cardiopulmonary disease. CT scan: COMPARISON: Abdomen Pelvis W Contrast dated 09/13/2017; Abdomen Pelvis W Contrast dated 09/04/2017; Abdomen Pelvis W Contrast dated 05/10/2016 TECHNIQUE: Biphasic CT imaging of the abdomen and pelvis was performed with 100 ml non-ionic IV contrast. All CT scans are performed using dose optimization technique as appropriate and may include automated exposure control or mA/KV adjustment according to patient size. FINDINGS: The lung bases are clear. No focal liver lesions are identified. The adrenal glands are unremarkable. Subcentimeter low-density renal lesions which are statistically benign. The spleen is unremarkable. Mild thickening distal esophagus which may reflect reflux esophagitis. No retroperitoneal lymphadenopathy. Aortic atherosclerosis. Diffuse colonic wall thickening and mild hyperenhancement. The appendix is normal. No evidence of significant lymphadenopathy. No suspicious bony findings. IMPRESSION: Findings consistent with a mild pancolitis. No bowel obstruction. Medical problem list: Nausea and vomiting secondary to pancolitis with UTI Acute renal injury Polysubstance abusepositive for cocaine, THC and benzodiazepine UTI Brief History of Present Illness: 45-year-old female had been eating out with family at [employer]. She had eaten some crab and fish. She reported that this was sour. Afterwards she had some increased nausea and vomiting. This worsened. She came to the ER for further evaluation. In the ER she was found to have pancolitis. Urine drug screen was positive for cocaine, marijuana and benzodiazepine. Patient was admitted for further evaluation and treatment. Hospital Course: Patient presented with chest pain, nausea and vomiting. Patient found to have kidd colitis. This occurred after she ate some seafood. Patient was admitted for further evaluation and treatment. Patient has done well. Patient was placed on IV antibiotic therapy and IV fluids. Patient appears to be back to her baseline. Patient tolerating diet. UTI was also identified. Cultures pending at discharge. At discharge she will continue with Cipro 500 mg 1 pill twice daily and Flagyl 500 mg 1 pill 3 times a day for 7 days. Patient will also be provided lactobacillus 3 times a day. Patient may continue with a GI soft diet and advance to a heart healthy diet. Recommend follow-up with GI as an outpatient to further address. Patient will need a colonoscopy in 4 to 6 weeks. Recommend to follow-up with PCP in 1 week to follow-up his hospitalization. Patient was positive for cocaine, benzodiazepine and THC. Education on cessation addressed in detail. Patient understands the risks of continued use of cocaine. Patient plans to quit. Patient denied use of THC even though this was positive. Acute renal injury likely from mild dehydration noted. Patient was given IV fluids with improvement. Patient appears to be back to her baseline. Vital Signs/Physical Exam: Temp Pulse Resp BP Pulse Ox 98.4 F 72 16 98/74 97 10/25/20 04:00 10/25/20 04:00 10/25/20 10:59 10/25/20 04:00 10/25/20 10:59 General: Alert, In no apparent distress, Oriented x3, Cooperative HEENT: Atraumatic Neck: Supple Respiratory: Clear to auscultation bilaterally, Normal air movement Cardiovascular: Normal pulses, Regular rate/rhythm Gastrointestinal: Normal bowel sounds, No ascites, No tenderness, No masses, No rebound, No guarding Musculoskeletal: No erythema, No tenderness, No warmth Integumentary: No tenderness/swelling, No erythema, No warmth, No cyanosis Neurological: Normal speech, Normal strength at 5/5 x4 extr, Normal tone, Normal affect Laboratory Data at Discharge: WBC 9.00 K/uL (4.3-10.9) D 10/25/20 04:55 Hgb 13.0 g/dL (12.0-15.0) D 10/25/20 04:55 Hct 39.0 % (36.0-45.0) D 10/25/20 04:55 Plt Count 270 K/uL (152-406) D 10/25/20 04:55 PT 12.9 SECONDS (9.5-12.5) H 10/24/20 09:21 INR 1.12 10/24/20 09:21 Sodium 140 mmol/L (136-145) 10/25/20 04:55 Potassium 3.4 mmol/L (3.5-5.1) L 10/25/20 04:55 BUN 10 mg/dL (7-18) 10/25/20 04:55 Creatinine 0.91 mg/dL (0.55-1.3) 10/25/20 04:55 Glucose 95 mg/dL (74-106) 10/25/20 04:55 Magnesium 2.2 mg/dL (1.8-2.4) 10/24/20 09:21 Total Bilirubin 0.6 mg/dL (0.2-1.0) 10/24/20 09:21 AST 8 U/L (15-37) L 10/24/20 09:21 ALT 17 U/L (12-78) 10/24/20 09:21 Alkaline Phosphatase 103 U/L (45-117) 10/24/20 09:21 Troponin I < 0.02 ng/mL (0.0-0.045) 10/25/20 04:55 Triglycerides 130 mg/dL (<150) 10/25/20 04:55 Cholesterol 171 mg/dL (<200) 10/25/20 04:55 HDL Cholesterol 40 mg/dL (40-60) 10/25/20 04:55 Cholesterol/HDL Ratio 4.28 10/25/20 04:55 Lipase 44 U/L (73-393) L 10/24/20 09:21 Home Medications: LORazepam [Ativan*] 1 mg PO TID PRN 06/03/14 Ciprofloxacin HCl [Cipro 500 MG Tablet] 500 mg PO BID #14 tab 10/25/20 Lactobacillus Acidophilus [Acidophilus Lactobacilli] 1 each PO TID #30 capsule 10/25/20 metroNIDAZOLE [Flagyl] 500 mg PO Q8H #21 tablet 10/25/20 New Medications: Lactobacillus Acidophilus [Acidophilus Lactobacilli] 1 each PO TID #30 capsule Ciprofloxacin HCl [Cipro 500 MG Tablet] 500 mg PO BID #14 tab metroNIDAZOLE [Flagyl] 500 mg PO Q8H #21 tablet Physician Discharge Instructions: Patient presented with chest pain, nausea and vomiting. Patient found to have colitis. Patient has done well. Patient was placed on IV antibiotic therapy and IV fluids. Patient appears to be back to her baseline. Patient tolerating diet. At discharge she will continue with Cipro 500 mg 1 pill twice daily and Flagyl 500 mg 1 pill 3 times a day for 7 days. Patient will also be provided lactobacillus 3 times a day. Patient may continue with a GI soft diet and advance to a heart healthy diet. Recommend follow-up with GI as an outpatient to further address. Patient will need a colonoscopy in 4 to 6 weeks. Recommend to follow-up with PCP in 1 week to follow-up his hospitalization. Patient was positive for cocaine and THC. Education on cessation addressed in d etail. Diet: GI soft Activity: Ad pam Followup: Darell Kaba MD [Primary Care Provider] - Time spent managing pt's care (in minutes): 55
[2020-10-25 15:07] VITALS: O2SAT 100
[2020-10-25 16:02] VITALS: BP 110/72; TEMP 97.6
[2020-10-26] MEDS ORDERED: PANTOPRAZOLE 40MG TABLET PO SCH (06:30)
== END 2020-10-25 14:30 | disposition home or self-care (01) | DRG 386 ==
LOC: ER 08:53 → ERHOLD 17:27 → OBSVTOIN 10-25 10:38
PROVIDERS: ADMIT Hospitalist; ATTEND Family Medicine
DX: K51.00 Ulcerative (chronic) pancolitis without complications (principal); N17.9 Acute kidney failure, unspecified; N30.00 Acute cystitis without hematuria; F17.210 Nicotine dependence, cigarettes, uncomplicated; E87.6 Hypokalemia; N18.9 Chronic kidney disease, unspecified; F12.10 Cannabis abuse, uncomplicated; F13.10 Sedative, hypnotic or anxiolytic abuse, uncomplicated; F14.10 Cocaine abuse, uncomplicated; E86.0 Dehydration; Z88.1 Allergy status to other antibiotic agents; Z88.5 Allergy status to narcotic agent; Z90.710 Acquired absence of both cervix and uterus; Z79.899 Other long term (current) drug therapy; Z20.822 Contact with and (suspected) exposure to COVID-19
CPT/HCPCS: 36415; 71045; 74177; 80048; 80061; 80076; 80307; 81003; 81015; 82550; 83690; 83735; 83880; 84484; 85025; 85610; 87077; 87086; 87088; 87186; 93005; 96361; 96365; 96366; 96367; 96375; 99285; G0378; J1650; J2405; J2543; J3370; J3480; J7030; Q9967; U0003

== ENCOUNTER 2020-11-11 00:18 | Emergency (ER) | payer SELFPAY ==
--- OUTSIDE RECORDS SUMMARY | 2020-11-11 00:21 | XMS REPORT | Continuity of Care Document ---
:1975 Author Organization [facility] t Address [address] [place] [address] Care Team Providers Name Role Phone Benny [...] Type Clinicians Facility Department ID 2020-02-21 2020[facility]02[facility]21 [facility] [id number] 05:42:39 23:59:00 Encounter Hubert GALVAN [id number] [facility] [id number] CENTER AT [phone] [address] 2019-08-28 2019-08-28 Orders Doctor OATES [id number] 22 00:00:00 00:00:00 Only UnassignedHORACE [id number] [place] [facility] [id number] 009 Results This patient has no known results.
--- NOTE | 2020-11-11 01:01 | ER ---
Nurse's Notes [facility] Name: Betty Mckeon Age: 45 yrs Sex: Female : 1975 Arrival Date: 11/11/2020 Time: 00:21 Bed Waiting Private MD: Darell Kaba E Diagnosis: Presentation: 11/11 00:56 Chief complaint: Patient states: she is having abdominal pain, back pain, and L side bb pain which started last night. Coronavirus screen: At this time, the client does not indicate any symptoms associated with coronavirus-19. Ebola Screen: No symptoms or risks identified at this time. Initial Sepsis Screen: Does the patient meet any 2 criteria? No. Patient's initial sepsis screen is negative. Does the patient have a suspected source of infection? No. Patient's initial sepsis screen is negative. Risk Assessment: Do you want to hurt yourself or someone else? Patient reports no desire to harm self or others. Onset of symptoms was November 10, 2020. 00:56 Method Of Arrival: Ambulatory bb 00:56 Acuity: JUANCARLOS 3 bb 00:59 Note pt states if she can't be roomed immediately she is going home and will come back bb later if it gets worse. Pt left the ED with steady gait. 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 - Social history:: Smoking status: unknown. Vital Signs: 00:56 BP 156 / 113; Pulse 73; Resp 20 S; Temp 97.9; Pulse Ox 98% on R/A; Weight 58.97 kg (R); bb Height 5 ft. 7 in. (170.18 cm) (R); Pain 10/10; 00:56 Body Mass Index 20.36 (58.97 kg, 170.18 cm) bb ED Course: 00:21 Patient arrived in ED. es 00:21 Darell Kaba MD is Private Physician. es 00:58 Triage completed. bb 00:58 Arm band placed on. bb Administered Medications: No medications were administered Outcome: 01:00 Patient left the ED. bb Signatures: Vero Ledezma Brenda, RN RN bb
[2020-11-11 01:31] VITALS: BP 156/113; TEMP 97.9; O2SAT 98
== END 2020-11-11 01:00 | disposition left against medical advice (07) ==
LOC: ER 00:18
DX: Z02.9 Encounter for administrative examinations, unspecified (principal)
CPT/HCPCS: 99281

== ENCOUNTER 2020-11-11 17:10 | Emergency (ER) | payer SELFPAY ==
--- OUTSIDE RECORDS SUMMARY | 2020-11-11 17:13 | XMS REPORT | Continuity of Care Document ---
:1975 Author Organization [facility] t Address [address] [place] [address] Care Team Providers Name Role Phone Benny [...] Type Clinicians Facility Department ID 2020-02-21 2020-02-21 [facility] [id number] 05:42:39 23:59:00 Encounter Hubert GALVAN [id number] [facility] [id number] CENTER AT [phone] [address] 2019-08-28 2019-08-28 Orders Doctor OATES [id number] 22 00:00:00 00:00:00 Only UnassignedHORACE [id number] [place] [facility] [id number] 009 Results This patient has no known results.
--- NOTE | 2020-11-11 18:31 | ER ---
Nurse's Notes [facility] Name: Betty Mckeon Age: 45 yrs Sex: Female : 1975 Arrival Date: 11/11/2020 Time: 17:13 Bed Waiting Private MD: Diagnosis: ED Course: 11/11 17:13 Patient arrived in ED. mr 18:31 Vitaly Dias MD is Attending Physician. aa5 Administered Medications: No medications were administered Outcome: 18:31 Patient left the ED. aa5 Signatures: Ceci Macario Audri, RN RN aa5
== END 2020-11-11 18:31 | disposition left against medical advice (07) ==
LOC: ER 17:10
DX: Z02.9 Encounter for administrative examinations, unspecified (principal)

== ENCOUNTER 2021-01-15 16:12 | Emergency (ER) | payer SELFPAY ==
[2021-01-15 17:18] LABS: Absolute Lymphocytes (CBC) 0.5 K/uL (0.7-4.9); Basophils % 0.7 % (0-1.3); Hematocrit 41.2 % (36.0-45.0); Lymphocytes % 11.5 % (15.3-44.8); MPV 8.1 fL (7.6-11.3); RBC Red Blood Cell Count 4.37 M/uL (3.86-4.86)
[2021-01-15] MEDS ORDERED: NA CHLORIDE 0.9% 500 ML ONE (17:25)
[2021-01-15] MEDS ORDERED: PROMETHAZINE INJ 25 MG/ML AMP ONE (17:25)
[2021-01-15 17:41] LABS: White Blood Cell Scan OK (OK)
[2021-01-15 17:42] LABS: Blood Morphology Comment NOT SEEN (NOT SEEN); Platelet Estimate ADEQ
--- NOTE | 2021-01-15 18:54 | RAD REPORT ---
EXAM DESCRIPTION: RAD - Chest Single View - 01/15/2021 5:44 pm CLINICAL HISTORY: COUGH COMPARISON: October 24 TECHNIQUE: AP portable chest image was obtained 01/15/2021 5:44 pm . FINDINGS: Lungs are clear of focal process. Interstitial pattern matches comparison. . Heart and vas culature are normal. No measurable pleural effusion and no pneumothorax. No acute bony abnormality se en. No acute aortic findings suspected. IMPRESSION: No acute cardiopulmonary process. No significant change from comparison study.
[2021-01-15 19:59] LABS: Potassium 3.8 mmol/L (3.5-5.1)
--- NOTE | 2021-01-15 20:10 | EDPHYS ---
Physician Documentation [facility] Name: Betty Mckeon Age: 45 yrs Sex: Female : 1975 Arrival Date: 01/15/2021 Time: 16:15 Bed 28 Private MD: KARLO Physician Vitaly Dias HPI: 01/15 17:47 This 45 yrs old Female presents to ER via Ambulatory with complaints of jr8 Nausea, Chest Pressure, Headache, bodyaches, r/o covid. 17:47 This is a 45-year-old female that presented to the emergency room with complaints of jr8 nausea, chest pressure, headache, body aches, shortness of breath, cough, headache. Patient stated that her mother was recently diagnosed with Covid. Now she feels that she has it as well. Denies any other complaints at this time.. 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 - Social history:: Smoking status: Patient reports the use of cigarette tobacco products, smokes one-half pack cigarettes per day, Patient uses street drugs, cocaine, marijuana. ROS: 17:47 Eyes: Negative for injury, pain, redness, and discharge, Neck: Negative for injury, jr8 pain, and swelling, Back: Negative for injury and pain, MS/Extremity: Negative for injury and deformity, Skin: Negative for injury, rash, and discoloration. 17:47 Constitutional: Positive for body aches, chills. 17:47 ENT: Positive for rhinorrhea, sinus congestion. 17:47 Cardiovascular: Positive for chest pain, Negative for edema, orthopnea, palpitations, paroxysmal nocturnal dyspnea. 17:47 Respiratory: Positive for cough, shortness of breath. 17:47 Abdomen/GI: Positive for nausea, Negative for abdominal pain, vomiting, diarrhea. 17:47 Neuro: Positive for headache. Exam: 17:47 Eyes: Pupils equal round and reactive to light, extra-ocular motions intact. Lids and jr8 lashes normal. Conjunctiva and sclera are non-icteric and not injected. Cornea within normal limits. Periorbital areas with no swelling, redness, or edema. ENT: Nares patent. No nasal discharge, no septal abnormalities noted. Tympanic membranes are normal and external auditory canals are clear. Oropharynx with no redness, swelling, or masses, exudates, or evidence of obstruction, uvula midline. Mucous membranes moist. Neck: Trachea midline, no thyromegaly or masses palpated, and no cervical lymphadenopathy. Supple, full range of motion without nuchal rigidity, or vertebral point tenderness. No Meningismus. Cardiovascular: Regular rate and rhythm with a normal S1 and S2. No gallops, murmurs, or rubs. Normal PMI, no JVD. No pulse deficits. Respiratory: Lungs have equal breath sounds bilaterally, clear to auscultation and percussion. No rales, rhonchi or wheezes noted. No increased work of breathing, no retractions or nasal flaring. Abdomen/GI: Soft, non-tender, with normal bowel sounds. No distension or tympany. No guarding or rebound. No evidence of tenderness throughout. Back: No spinal tenderness. No costovertebral tenderness. Full range of motion. Skin: Warm, dry with normal turgor. Normal color with no rashes, no lesions, and no evidence of cellulitis. MS/ Extremity: Pulses equal, no cyanosis. Neurovascular intact. Full, normal range of motion. Neuro: Awake and alert, GCS 15, oriented to person, place, time, and situation. Cranial nerves II-XII grossly intact. Motor strength 5/5 in all extremities. Sensory grossly intact. Cerebellar exam normal. Normal gait. 17:47 Constitutional: The patient appears alert, awake, uncomfortable. Vital Signs: 16:30 BP 109 / 73; Pulse 81; Resp 17; Temp 98.4; Pulse Ox 100% ; Weight 58.97 kg; Height 5 jl7 ft. 7 in. (170.18 cm); Pain 10/10; 16:30 Body Mass Index 20.36 (58.97 kg, 170.18 cm) jl7 MDM: 16:45 Patient medically screened. jr8 18:24 Data reviewed: vital signs, nurses notes, lab test result(s), radiologic studies, plain jr8 films. Data interpreted: Pulse oximetry: on room air is 100 %. Interpretation: normal. Counseling: I had a detailed discussion with the patient and/or guardian regarding: the historical points, exam findings, and any diagnostic results supporting the discharge/admit diagnosis, lab results, radiology results, the need for outpatient follow up, a family practitioner, to return to the emergency department if symptoms worsen or persist or if there are any questions or concerns that arise at home. 01/15 16:55 Order name: CBC with Diff; Complete Time: 17:51 jr8 01/15 16:55 Order name: Basic Metabolic Panel; Complete Time: 20:09 jr8 01/15 16:55 Order name: XRAY Chest (1 view); Complete Time: 18:55 jr8 01/15 17:22 Order name: SARS-COV-2 RT PCR; Complete Time: 18:24 EDMS 01/15 17:41 Order name: CBC Smear Scan; Complete Time: 17:51 EDMS 01/15 16:55 Order name: IV; Complete Time: 17:14 jr8 Administered Medications: 17:14 Drug: Promethazine 12.5 mg Route: IVP; Site: left antecubital; oh 21:32 Follow up: Response: Nausea is decreased dc2 17:14 Drug: NS 0.9% 500 ml Route: IV; Rate: bolus; Site: left antecubital; oh 21:08 Drug: HYDROcodone-acetaminophen 5 mg-325 mg 1 tabs Route: PO; dc2 21:31 Follow up: Response: Pain is decreased dc2 21:09 Drug: Ketorolac 15 mg Route: IVP; Site: left antecubital; dc2 21:32 Follow up: Response: Pain is decreased dc2 Disposition Summary: 01/15/21 20:10 Discharge Ordered Location: Home jr Problem: new jr8 Symptoms: have improved jr8 Condition: Stable jr8 Diagnosis - SARS-associated coronavirus as the cause of diseases classified elsewhere jr8 Followup: jr8 - With: Private Physician - When: 1 week - Reason: Recheck today's complaints, Continuance of care, Re-evaluation by your physician Discharge Instructions: - Discharge Summary Sheet jr8 - COVID-19 jr8 - 10 Things You Can Do to Manage Your COVID-19 Symptoms at Home - [facility] jr8 - COVID-19: Quarantine vs. Isolation - [facility] jr8 Forms: - Medication Reconciliation Form jr8 - Thank You Letter jr8 - Antibiotic Education jr8 - Prescription Opioid Use jr8 Prescriptions: - promethazine-DM 6.25-15 mg/5 mL Oral syrup - take 5 milliliter by ORAL route every 4-6 hours As needed as needed, not to jr8 exceed 30 mL in 24 hours; 100 milliliter; Refills: 0, Product Selection Permitted - Zofran 4 mg Oral Tablet - take 1 tablet by ORAL route every 12 hours As needed; 20 tablet; Refills: 0, jr8 Product Selection Permitted Addendum: 01/19/2021 06:59 Co-signature as Attending Physician, Vitaly Dias MD I agree with the assessment and c chapman plan of care. Signatures: Dispatcher [employer] [facility] Vitaly Dias MD MD cha Roszak, Josh, PA PA jr8 Elizabeth Lagos RN RN jl7 Danielle Xiao RN RN dc2 Lincoln Mcgee RN RN oh Corrections: (The following items were deleted from the chart) 01/15 17:22 16:55 CORONAVIRUS+MR.LAB.BRZ ordered. [facility]
--- NOTE | 2021-01-15 20:10 | ER ---
Nurse's Notes [facility] Name: Betty Mckeon Age: 45 yrs Sex: Female : 1975 Arrival Date: 01/15/2021 Time: 16:15 Bed 28 Private MD: Diagnosis: SARS-associated coronavirus as the cause of diseases classified elsewhere Presentation: 01/15 16:30 Chief complaint: Patient states: Runny nose, cough, vomiting, headache, fatigue, jl7 shortness of breath, chest pain since last night. Coronavirus screen: cough unrelated to allergies, fatigue, headache, muscle pain, shortness of breath, Client presents with at least one sign or symptom that may indicate coronavirus-19. Standard/surgical mask placed on the client. Provider contacted for isolation considerations. Ebola Screen: No symptoms or risks identified at this time. Initial Sepsis Screen: Does the patient meet any 2 criteria? No. Patient's initial sepsis screen is negative. Does the patient have a suspected source of infection? No. Patient's initial sepsis screen is negative. Risk Assessment: Do you want to hurt yourself or someone else? Patient reports no desire to harm self or others. Onset of symptoms was January 14, 2021. 16:30 Method Of Arrival: Ambulatory [facility] 16:30 Acuity: JUANCARLOS 3 jl7 Triage Assessment: 16:32 General: Appears in no apparent distress. uncomfortable, Behavior is cooperative, jl7 anxious. Pain: Complains of pain in all over Pain currently is 10 out of 10 on a pain scale. GI: Reports nausea. 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 - Social history:: Smoking status: Patient reports the use of cigarette tobacco products, smokes one-half pack cigarettes per day, Patient uses street drugs, cocaine, marijuana. Screenin:18 Abuse screen: Denies threats or abuse. Nutritional screening: No deficits noted. oh Tuberculosis screening: No symptoms or risk factors identified. Fall Risk None identified. Assessment: 17:14 General: Appears distressed, Behavior is cooperative, appropriate for age, anxious, oh restless, Reports feeling ill for fatigue for weakness, headness, sob,,states her family members have covid. Respiratory: Reports shortness of breath. GI: Reports nausea, vomiting. Musculoskeletal: Reports weakness in generalize body. 17:16 Neuro: Reports headache. oh 20:00 GI: No deficits noted. Reports nausea. dc2 Vital Signs: 16:30 BP 109 / 73; Pulse 81; Resp 17; Temp 98.4; Pulse Ox 100% ; Weight 58.97 kg; Height 5 jl7 ft. 7 in. (170.18 cm); Pain 10/10; 16:30 Body Mass Index 20.36 (58.97 kg, 170.18 cm) jl7 ED Course: 16:15 Patient arrived in ED. am2 16:32 Triage completed. jl7 16:32 Arm band placed on right wrist. jl7 16:36 Lincoln Mcgee, RN is Primary Nurse. oh 16:45 Mian Lopez PA is PHCP. jr8 16:45 Vitaly Dias MD is Attending Physician. jr8 17:14 CBC with Diff Sent. oh 17:14 Basic Metabolic Panel Sent. oh 17:18 Inserted saline lock: 20 gauge in left antecubital area, using aseptic technique. Blood oh collected. 17:44 XRAY Chest (1 view) In Process Unspecified. EDMS 20:00 Patient has correct armband on for positive identification. Bed in low position. Call dc2 light in reach. 21:00 No provider procedures requiring assistance completed. dc2 21:15 IV discontinued, intact, bleeding controlled, No redness/swelling at site. Pressure dc2 dressing applied. Administered Medications: 17:14 Drug: Promethazine 12.5 mg Route: IVP; Site: left antecubital; oh 21:32 Follow up: Response: Nausea is decreased dc2 17:14 Drug: NS 0.9% 500 ml Route: IV; Rate: bolus; Site: left antecubital; oh 21:08 Drug: HYDROcodone-acetaminophen 5 mg-325 mg 1 tabs Route: PO; dc2 21:31 Follow up: Response: Pain is decreased dc2 21:09 Drug: Ketorolac 15 mg Route: IVP; Site: left antecubital; dc2 21:32 Follow up: Response: Pain is decreased dc2 Outcome: 20:10 Discharge ordered by MD. temple 21:33 Discharged to home ambulatory, with family. dc2 21:33 Condition: stable 21:33 Discharge instructions given to Instructed on discharge instructions. 21:35 Patient left the ED. dc2 Signatures: Dispatcher [employer] EDMS Mian Lopez PA PA jr8 Leal, Jahala RN RN jl7 Rachel Colby am2 Danielle Xiao RN RN [email or web address] Lincoln Mcgee RN RN oh Corrections: (The following items were deleted from the chart) 17:22 17:14 CORONAVIRUS+ drawn and sent. tx EDRI
[2021-01-15] MEDS ORDERED: KETOROLAC 30 MG/ML INJ ONE (21:22)
[2021-01-15] MEDS ORDERED: HYDROCODONE/APAP 5/325 MG TAB ONE (21:22)
[2021-01-15 21:52] VITALS: BP 109/73; TEMP 98.4; O2SAT 100
== END 2021-01-15 21:35 | disposition home or self-care (01) ==
LOC: ER 16:12
DX: U07.1 COVID-19 (principal); F17.210 Nicotine dependence, cigarettes, uncomplicated; Z88.2 Allergy status to sulfonamides; Z88.5 Allergy status to narcotic agent
CPT/HCPCS: 36415; 71045; 80048; 85025; 96374; 96375; 99284; J2550; J7040; U0003

== ENCOUNTER 2023-01-17 10:36 | Emergency (ER) | payer OTHER ==
--- OUTSIDE RECORDS SUMMARY | 2023-01-17 10:39 | XMS REPORT | Continuity of Care Document ---
:1975 Author Organization [facility] t Address [address] [place] [address] Care Team Providers Name Role Phone JACKSONCHIRAGMIO A Primary Care Physician Unavailable FABIANA LYNN Attending Clinician Unavailable MAYO JON Attending Clinician Unavailable MAYO JON Attending Clinician Unavailable Mayo Jon DO Attending Clinician Petey COOK Attending Clinician Unavailable Petey Rey Attending Clinician Doctor Unassigned, [place] Attending Clinician Unavailable Hubert Valverde Attending Clinician JESSE CLARK Attending Clinician Unavailable MAYO JON Admitting Clinician Unavailable JESSE CLARK Admitting Clinician Unavailable Payers Payer Name Policy Type Policy Number Effective Date Expiration Date S ource Problems Condition Condition Condition Status Onset Resolution Last Treating Co mments Source Name Details Category Date Date Treatment Clinician Date Concussion Concussion Disease Active 2019- U nivers 5-25 ity of 00:00: [place] 00 Medical Branch Vaginal Vaginal Disease Active Univers cuff cuff 5-27 [place] Protein-ca Protein-ca Disease Active U nivers nolansandy francisco 4-16 ity of malnutriti malnutriti [place], [place], mild 00 Medica l Branch Chronic Chronic Disease Active 2018- Univers pelvic pelvic 4-16 ity of pain in pain in 00:00: [place] female female 00 Medical Branch Abnormal Abnormal Disease Active Unive rs uterine uterine 4-16 ity of bleeding bleeding 00:00: [place] 00 Medical Branch S/P S/P Disease Active Univers hysterecto hysterecto 4-16 it y of my with my with 00:00: [place] oophorecto oophorecto 00 Me dical my my Branch S/P S/P Disease Active Univers hysterecto hysterecto 4-16 it y of my with my with 00:00: [place] oophorecto oophorecto 00 Me dical my my Branch Allergies, Adverse Reactions, Alerts Allergy Allergy Status Severity Reaction(s) Onset Inactive Treating Comm ents Source Name Type Date Date Clinician SULFAMET DRUG Active Unknown-Cmnt 2020-04 Un shaheed HOXAZOLE 1-17 ity of -TRIMETH 00:00: [place] OPRIM 00 Medical Branch Sulfamet Propensi Active Unknown - 2020-04 Yeast Uni vers hoxazole ty to See comments 1-17 infection ity of -Trimeth adverse 00:00: [place] oprim reaction 00 Medical s Branch Fentanyl Propensi Active Unknown - Uni vers ty to See comments 5-25 ity of adverse 00:00: [place] reaction 00 Medical s Branch FENTANYL DRUG Active Unknown-Cmnt Un shaheed INGREDI 5-25 ity of 00:00: [place] 00 Medical [place] Social History Social Habit Start Date Stop Date Quantity Comments Source History of tobacco Cigarette Smoker University of use [facility] Exposure to 2022-02-28 2022-03-10 Not sure University SARS-CoV-2 (event) 00:00:00 22:50:00 [facility] Alcohol intake 2021-02-25 2021-02-25 Current University of 00:00:00 00:00:00 non-drinker of [facility] alcohol Branch (finding) Cigarettes smoked 2017-09-04 2017-09-04 Univers ity of current (pack per 00:00:00 00:00:00 [place] ) - Reported Branch Tobacco use and 2017-09-04 2017-09-04 Smokeless Universit y of exposure 00:00:00 00:00:00 tobacco non-user [facility] dical Branch Tobacco Comment 2017-09-04 2017-09-0404/12 Universit y of 00:00:00 00:00:00 [facility] Sex [birth year] [facility] y of 00:00:00 00:00:00 [facility] Smoking Status Start Date Stop Date Source Smokes tobacco daily 2017-09-04 00:00:00 [facility] ity of [facility] Medications Ordered Filled Start Stop Current Ordering Indication Dosage Frequency Signature Comments Components Source Medication Medication Date Date Medication? Clinician (SIG) Name Name ibuprofen 2021-04 No 600mg 600 mg, Uni vers (IBU) 05-12 Oral, ity of tablet 600 05:15: 05:23 ONCE, 1 [place] mg 00 :00 dose, On Medical Wed Branch 03/10/22 at 2315, MAGGIE HYDROcodone 2021-04 1{tbl} 1 tablet, Univers -acetaminop 05-12 Oral, ity of hen (NORCO 05:15: 05:23 ONCE, 1 [place] as 5) 5-325 mg 00 :00 dose, On Medi areli tablet 1 Tue Branch tablet 03/10/22 at 2315, MAGGIE traMADoL 50 2021-04 Yes [id number] 50mg Take 1 Univ ers mg tablet 2-01 tablet by ity o f 00:00: mouth [place] 00 every 6 Medical (six) Branch hours as needed for Pain (scale 1-3). Indication s: acute pain ibuprofen 2021-04 Yes [id number] 600mg Take 1 Univers 600 mg 2-01 tablet by ity of tablet 00:00: mouth [place] 00 every 6 Medical (six) Branch hours as needed for Pain (scale 4-6). cephALEXin 2020-04 No 500mg 500 mg, Un shaheed (KEFLEX) 04-27 Oral, ity of capsule 500 19:30: 18:29 [place]CE[place] 1 [place] mg [place] :[place] dose, On Medical Wed Branch 02/25/21 at 1330, MAGGIE
Re ason for Anti-Infec tive: Documented Infection< br>Documen carol Infection Site: Urine
D uration of Therapy: 10 days ibuprofen 2020-04 No 600mg 600 mg, Uni vers (IBU) 04-27 Oral, ity of tablet 600 19:30: 18:29 ONCE, 1 [place] mg 00 :00 dose, On Medical Wed Branch 02/25/21 at 1330, MAGGIE ibuprofen 2020-04 Yes [id number] 600mg Take 1 U nivers 600 mg -17 tablet by ity of tablet 00:00: mouth [place] 00 every 6 Medical (six) Branch hours as needed for Pain (scale 4-6). ibuprofen 2020-04 Yes [id number] 600mg Take 1 U nivers 600 mg -17 tablet by ity of tablet 00:00: mouth [place] 00 every 6 Medical (six) Branch hours as needed for Pain (scale 4-6). cephALEXin 2020-04- No [id number] 500mg Take 1 Univers (KEFLEX) 04-27 capsule by ity of 500 mg 00:00: 05:59 mouth 3 [place] capsule 00 :00 (three) Medical times Branch daily for 10 days. ciprofloxac 2018-04 Yes [id number] 500mg Take 1 Univers in HCl 500 2-02 tablet by ity of mg tablet 00:00: mouth 2 [place] 00 (two) Medical times Branch daily. ciprofloxac 2018-04 Yes [id number] 500mg Take 1 Univers in HCl 500 2-02 tablet by ity of mg tablet 00:00: mouth 2 [place] 00 (two) Medical times Branch daily. ciprofloxac 2018-04 Yes [id number] 500mg Take 1 Univers in HCl 500 2-02 tablet by ity of mg tablet 00:00: mouth 2 [place] 00 (two) Medical times Branch daily. ALPRAZolam Yes 1mg Take 1 mg Un shaheed (XANAX) 1 5-26 by mouth 2 ity of mg tablet 14:36: (two) [place] 26 times Medical daily. Branch ALPRAZolam Yes 1mg Take 1 mg Un shaheed (XANAX) 1 5-26 by mouth 2 ity of mg tablet 14:36: (two) [place] 26 times Medical daily. Branch ALPRAZolam Yes 1mg Take 1 mg Un shaheed (XANAX) 1 5-26 by mouth 2 ity of mg tablet 14:36: (two) [place] 26 times Medical daily. Branch ibuprofen Yes 600mg Take 1 Unive rs 600 mg 5-29 tablet by ity of tablet 00:00: mouth [place] 00 every 6 Medical (six) Branch hours. ibuprofen 2018-0 Yes 600mg Take 1 Unive rs 600 mg 5-29 tablet by ity of tablet 00:00: mouth [place] 00 every 6 Medical (six) Branch hours. ibuprofen 2018-0 Yes 600mg Take 1 Unive rs 600 mg 5-29 tablet by ity of tablet 00:00: mouth [place] 00 every 6 Medical (six) Branch hours. Vital Signs Vital Name Observation Time Observation Value Comments Source Heart rate 2022-03-11 04:45:00 76 /min Universi ty [facility] Body temperature 2022-03-11 04:45:00 36.39 Sara Univ ersity [facility] Respiratory rate 2022-03-11 04:45:00 18 /min Univ ersity [facility] Body weight 2022-03-11 04:45:00 54.432 kg Universi ty [facility] BMI 2022-03-11 04:45:00 18.79 kg/m2 Universi ty [facility] Oxygen saturation in 2022-03-11 04:45:00 98 /min University of Arterial blood by [facility] Pulse oximetry Branch Systolic blood 2022-03-11 04:45:00 124 mm[Hg] Univer sity of pressure [facility] Diastolic blood 2022-03-11 04:45:00 80 mm[Hg] Unive rsity of pressure [facility] Systolic blood 2021-02-25 18:30:00 100 mm[Hg] Univer sity of pressure [facility] Branch Diastolic blood 2021-02-25 18:30:00 70 mm[Hg] Unive rsity of pressure [facility] Heart rate 2021-02-25 18:30:00 63 /min Universi ty [facility] Respiratory rate 2021-02-25 18:30:00 25 /min Univ ersity of [facility] Oxygen saturation in 2021-02-25 18:30:00 98 /min University of Arterial blood by [facility] Pulse oximetry Branch Body temperature 2021-02-25 17:23:00 36.78 Sara Univ ersity of [facility] Body weight 2021-02-25 17:23:00 50.349 kg Universi ty [facility] BMI 2021-02-25 17:23:00 17.39 kg/m2 [facility] Procedures Procedure Date / Time Performed Performing Clinician [facility] e XR CERVICAL SPINE 3 VW 2022-03-11 05:58:00 Mayo Jon [facility] XR ELBOW >3 VW RIGHT 2022-03-11 05:58:00 Mayo Jon [facility] XR HUMERUS 2 VW RIGHT 2022-03-11 05:58:00 [facility] SHOULDER 2+ VW 2022-03-11 05:58:00 [facility] FOR 2022-03-11 04:45:50 Doctor Unassigned, [facility]3] TREATMENT POCT TEST 2021-02-25 17:51:00 Petey Cook [facility] MAGNESIUM 2021-02-25 17:34:00 [facility] COMP. METABOLIC PANEL 2021-02-25 17:34:00 [facility] ([id number]) [facility] CBC WITH DIFF 2021-02-25 17:34:00 [facility] URINALYSIS 2021-02-25 17:34:00 [facility] NOTICE OF PRIVACY 2021-02-25 17:15:27 Doctor Unassigned, No [facility]3] CONSENT/REFUSAL FOR 2021-02-25 17:15:06 Doctor Unassigned, No [facility]3] TREATMENT Encounters Start End Encounter Admission Attending Care Care Encounter Source Date/Time Date/Time Type Type Clinicians Facility Department ID 2022-01-11 Outpatient [facility] [id number] [place] 14:01:19 [id number] [facility] 2021-04-23 [facility] [id number] [facility] 21:34:53 FABIANA 2022-10-23 2022-10-23 Outpatient KRISTIN FOSTER [id number] [place] 11:27:29 11:27:29 [id number] F Tanner 2022-09-27 2022-09-27 Outpatient [facility] [id number] [place] 11:15:42 11:15:42 [id number] F Tanner 2022-09-18 2022-09-18 Outpatient [facility] [id number] Garcia 11:50:00 11:50:00 [id number] F Tanner 2022-03-10 2022-03-11 Emergency X MAYO JON [facility] ERT 1 [id number] Univers 22:48:00 01:23:00 DONTRELLMAYO [place] ity of [facility] 2022-03-10 2022-03-11 Emergency Dontrell, TRAUMA [id number] Univers 22:48:00 01:23:00 [facility] [id number] [place] [id number] [facility] 014 Branch 2021-02-25 2021-02-25 Emergency X JOYCE, Petey [facility] ERT [id number] Univers 11:25:00 12:47:00 ity of [facility] 2021-02-25 2021-02-25 Emergency Petey Cook [facility] [id number] Univers 11:25:00 12:47:00 Jordana CHAU 350.1.13.10 i ty of [facility] 4.2.7.2.686 [place] [facility] [id number] [facility] 084 Branch 2021-02-25 2021-02-25 Orders Doctor OATES [id number] Univers 00:00:00 00:00:00 Only Unassigned, HORACE 350.1.13.10 ity of [place] [facility] 4.2.7.2.686 [place] as [id number] [facility] 009 Branch 2020-02-21 2020-02-21 [facility] [id number] 05:42:39 23:59:00 Encounter Hubert GALVAN 350.1.13.10 CARE 4.2.7.2.686 CENTER AT [id number] [address] [id number] [facility] 2019-08-28 2019-08-28 Orders Doctor ИВАН [id number] 00:00:00 00:00:00 Only Unassigned, HORACE 350.1.13.10 [place] [facility] 4.2.7.2.686 [id number] 2019-03-11 2019-03-12 [facility] ERT [id number] Univers 23:14:44 07:10:00 , JESSE rosario [facility] Results Test Description Test Time Test Comments Results Result Comments Source MAGNESIUM 2021-02-25 18:04:32 Test Item Value Reference Range Interpretation Comme nts MAGNESIUM (test code = 8319978506) 1.7 mg/dL 1.7-2.4 Lab Interpretation (test code = 29219-8) [facility]75[facility]2021-02-25 18:04:11 Test Item Value Reference Range Interpretation Comments NA (test code = 139 mmol/L 135-145 6040570954) K (test code = 4.0 mmol/L 3.5-5.0 5883027825) CL (test code = 106 mmol/L 98-108 6625563013) CO2 TOTAL (test code = 25 mmol/L 23-31 1656448200) AGAP (test code = 2-16 6933823761) BUN (test code = 9 mg/dL 7-23 4064623003) GLUCOSE (test code = 159 mg/dL 70-110 H 6745690042) CREATININE (test code = 0.67 mg/dL 0.50-1.04 3099927297) TOTAL BILI (test code = 0.5 mg/dL 0.1-1.0 8739735242) CALCIUM (test code = 9.8 mg/dL 8.6-10.6 9554882361) T PROTEIN (test code = 6.9 g/dL 6.3-8.2 7753312012) ALBUMIN (test code = 4.3 g/dL 3.5-5.0 3266775422) ALK PHOS (test code = 58 U/L 34-122 2851995066) ALTv (test code = 13 U/L 5-35 1742-6) AST(SGOT) (test code = 20 U/L 13-40 7034893979) eGFR (test code = mL/min/1.73m2 9472598688) AMISH (test code = AMISH) Association of Glomerular Filtration Rate (GFR) and Staging of Kidney Disease* + --+ --+ ------+| GFR (mL/min/1.73 m2) ?| With Kidney Damage ?| ?Without Kidney Damage+ --------+ --------+ +| ?>90 ?| ?Stage one ?| ? Normal ?+ ---+ ---+ -------+| ?60-89 ?| ?Stage two ?| ? Decreased GFR ? + --+ --+ ------+| ?30-59 ?| ?Stage three ?| ? Stage three ? + --+ --+ ------+| ?15-29 ?| ?Stage four ? | ? Stage four ?+ ---+ ---+ -------+| ?<15 (or dialysis) ? ?| ?Stage five ? | ? Stage five ?+ ---+ ---+ -------+ *Each stage assumes the associated GFR level has been in effect for at least three months. ?Stages 1 to 5, with or without kidney disease, indicate chronic kidney disease. Notes: Determination of stages one and two (with eGFR >59mL/min/1.73 m2) requires estimation of kidney damage for at least three months as defined by structural or functional abnormalities of the kidney, manifested by either:Pathological abnormalities or Markers of kidney damage (including abnormalities in the composition of the blood or urine or abnormalities in imaging tests). Lab Interpretation Abnormal (test code = 18515-8) [facility] [id number] 17:51:00 Test Item Value Reference Range Interpretation Comments POCT PREG (test code = 1605) negative On board controls acceptable with present C Line (test code = 3574) POCT PREG LOT # (test code = 3575) [id number] POCT PREG TEST DATE (test 05/11/2022 code = 3576) Lab Interpretation (test code = Normal 24974-7) [facility] WITH [id number] 17:42:46 Test Item Value Reference Range Interpretation Comments WBC (test code = See_Comment [Automated 6690-2) message] The sy stem which generated this result transmitted reference range : 4.30 - 11.10 10*3/?L. The reference range was not used to interpret this result as normal/abnormal . RBC (test code = See_Comment [Automated 789-8) message] The sy stem which generated this result transmitted reference range : 3.93 - 5.25 10*6/?L. The reference range was not used to interpret this result as normal/abnormal . HGB (test code = 13.9 g/dL 11.6-15.0 718-7) HCT (test code = 42.5 % 35.7-45.2 4544-3) MCV (test code = 97.3 fL 80.6-95.5 H 787-2) MCH (test code = 31.8 pg 25.9-32.8 785-6) MCHC (test code = 32.7 g/dL 31.6-35.1 786-4) RDW-SD (test code = 48.8 fL 39.0-49.9 16447-0) RDW-CV (test code = 13.5 % 12.0-15.5 788-0) PLT (test code = See_Comment [Automated 777-3) message] The sy stem which generated this result transmitted reference range : 166 - 358 10*3/ ?L. The reference r hardy was not used to interpret this result as normal/abnormal . MPV (test code = 10.0 fL 9.5-12.9 90298-4) NRBC/100 WBC (test See_Comment [Automat ed code = 9687815802) message] The system which generated this result transmitted reference range : 0.0 - 10.0 /100 WBCs. The refer ence range was not u sed to interpret th is result as normal/abnormal . NRBC x10^3 (test code <0.01 See_Comment [Auto mated = 0478883737) message] The s ystem which generated this result transmitted reference range : 10*3/?L. The reference range was not used to interpret this result as normal/abnormal . GRAN MAT (NEUT) % 69.7 % (test code = 770-8) IMM GRAN % (test code 0.20 % = 0944152949) LYMPH % (test code = 25.1 % 736-9) MONO % (test code = 3.7 % 5905-5) EOS % (test code = 0.6 % 713-8) BASO % (test code = 0.7 % 706-2) GRAN MAT x10^3(ANC) 6.27 10*3/uL 1.88-7.09 (test code = 0232104725) IMM GRAN x10^3 (test <0.03 0.00-0.06 code = 8746426077) LYMPH x10^3 (test code 2.25 10*3/uL 1.32-3.29 = 731-0) MONO x10^3 (test code 0.33 10*3/uL 0.33-0.92 = 742-7) EOS x10^3 (test code = 0.05 10*3/uL 0.03-0.39 711-2) BASO x10^3 (test code 0.06 10*3/uL 0.01-0.07 = 704-7) Lab Interpretation Abnormal (test code = 88767-3) [facility]"
--- NOTE | 2023-01-17 10:57 | EDPHYS ---
Physician Documentation [facility] Name: Betty Mckeon Age: 47 yrs Sex: Female : 1975 Arrival Date: 01/17/2023 Time: 10:36 Bed 7 Private MD: ED Physician Yoav Florentino HPI: 01/17 10:48 This 47 yrs old Female presents to ER via Ambulatory with complaints of Staple Removal. jh7 10:48 The patient has ayanna on the right frontal area. Previous treatment: The patient was [facility] initially treated on January 03, 2023, the care was rendered at [facility], Treatment type: The patient's original treatment included ayanna. Sutures/ayanna progress: The patient has no c/o's. The wound is well-healing with no redness, swelling, discharge, or dehiscence reported. Historical: - Allergies: 10:48 Bactrim; iw 10:48 Fentanyl; iw 10:48 sulfamethoxazole; iw 10:48 tramadol; iw - PMHx: 10:48 Anxiety; Bipolar disorder; chronic kidney disease; depressive disorder; Schizophrenia; iw split personality; - PSHx: 10:48 section; hysterectomy; Tonsillectomy; iw - Immunization history:: Adult Immunizations up to date. - Social history:: Smoking status: Patient reports the use of cigarette tobacco products. ROS: 10:48 Constitutional: Negative for fever, chills, and weight loss, Eyes: Negative for injury, jh7 pain, redness, and discharge, Neck: Negative for injury, pain, and swelling, Cardiovascular: Negative for chest pain, palpitations, and edema, Respiratory: Negative for shortness of breath, cough, wheezing, and pleuritic chest pain, MS/Extremity: Negative for injury and deformity, Neuro: Negative for headache, weakness, numbness, tingling, and seizure, 10:48 Skin: Positive for 6 intact ayanna present, 10:48 All other systems are negative, Exam: 10:48 Constitutional: This is a well developed, well nourished patient who is awake, alert, jh7 and in no acute distress. Cardiovascular: Regular rate and rhythm with a normal S1 and S2. No gallops, murmurs, or rubs. Normal PMI, no JVD. No pulse deficits. Respiratory: Lungs have equal breath sounds bilaterally, clear to auscultation and percussion. No rales, rhonchi or wheezes noted. No increased work of breathing, no retractions or nasal flaring. MS/ Extremity: Pulses equal, no cyanosis. Neurovascular intact. Full, normal range of motion. Neuro: Awake and alert, GCS 15, oriented to person, place, time, and situation. Motor strength 5/5 in all extremities. Sensory grossly intact. Normal gait. 10:48 Skin: Wound recheck: Staple laceration closure: the wound is healing well, no evidence of dehiscence, no drainage, no erythema, no swelling, Vital Signs: 10:53 BP 140 / 65; Pulse 74; Resp 18; Temp 97; Pulse Ox 99% ; ko1 Procedures: 10:48 Suture/Staple removal: Removed 6 ayanna, from right frontal area, site appears well [facility] healed, dressed with gauze bandage, Patient tolerated well. MDM: 10:39 Patient medically screened. [facility] 10:45 Data reviewed: vital signs, nurses notes. Counseling: I had a detailed discussion with [facility] the patient and/or guardian regarding the historical points, exam findings, and any diagnostic results supporting the discharge/admit diagnosis, to return to the emergency department if symptoms worsen or persist or if there are any questions or concerns that arise at home. Administered Medications: No medications were administered Disposition: 12:54 Co-signature as Attending Physician, Yoav Florentino MD I reviewed the patient's care rt provided by the Advanced Practice Provider and agree with the diagnosis and treatment plan. Disposition Summary: 01/17/23 10:56 Discharge Ordered Notes: Location: Home [facility] Problem: new [facility] Symptoms: are resolved [facility] Condition: Stable [facility] Diagnosis - Encounter for removal of ayanna [facility] Followup: [facility] - With: Private Physician - When: As needed - Reason: Discharge Instructions: - Discharge Summary Sheet [facility] - Sutures, Ayanna, or Adhesive Wound Closure [facility] Forms: - Medication Reconciliation Form [facility] - Thank You Letter [facility] - Patient Portal Instructions [facility] - Leadership Thank You Letter [facility] Signatures: Jenny Reed RN Tamera Fisher FNP NOCTURNIST PHYSICIAN [facility] Malinda Bravo RN RN ko1 Yoav Florentino MD MD rt
--- NOTE | 2023-01-17 10:57 | ER ---
Nurse's Notes [facility] Name: Betty Mckeon Age: 47 yrs Sex: Female : 1975 Arrival Date: 01/17/2023 Time: 10:36 Bed 7 Private MD: Diagnosis: Encounter for removal of kerrie Presentation: 01/17 10:46 Chief complaint: Patient states: needs kerrie removed from right side of head. iw Coronavirus screen: At this time, the client does not indicate any symptoms associated with coronavirus-19. Ebola Screen: Patient negative for fever greater than or equal to 101.5 degrees Fahrenheit, and additional compatible Ebola Virus Disease symptoms Patient denies exposure to infectious person. Patient denies travel to an Ebola-affected area in the 21 days before illness onset. No symptoms or risks identified at this time. Initial Sepsis Screen: Does the patient meet any 2 criteria? No. Patient's initial sepsis screen is negative. Does the patient have a suspected source of infection? No. Patient's initial sepsis screen is negative. Risk Assessment: Do you want to hurt yourself or someone else? Patient reports no desire to harm self or others. Onset of symptoms was January 03, 2023. 10:46 Method Of Arrival: Ambulatory iw 10:46 Acuity: JUANCARLOS 4 iw Historical: - Allergies: 10:48 Bactrim; iw 10:48 Fentanyl; iw 10:48 sulfamethoxazole; iw 10:48 tramadol; iw - PMHx: 10:48 Anxiety; Bipolar disorder; chronic kidney disease; depressive disorder; Schizophrenia; iw split personality; - PSHx: 10:48 section; hysterectomy; Tonsillectomy; iw - Immunization history:: Adult Immunizations up to date. - Social history:: Smoking status: Patient reports the use of cigarette tobacco products. Screenin:53 [facility] ED Fall Risk Assessment (Adult) History of falling in the last 3 months, ko1 including since admission Yes- single mechanical fall (1 pt) Confusion or Disorientation No (0 pts) Intoxicated or Sedated No (0 pts) Impaired Gait No (0 pts) Mobility Assist Device Used No (0 pt) Altered Elimination No (0 pt) Score/Fall Risk Level 0 - 2 = Low Risk Oriented to surroundings, Maintained a safe environment, Educated pt \T\ family on fall prevention, incl call for assistance when getting out of bed, Assessed \T\ reinforced patient's understanding of fall precautions, Provided non-skid footwear, Hourly rounding (assess needs \T\ fall precautionary measures) done, Used ambulatory aids as needed (educated on \T\ assisted with), Used gait belt as appropriate. Abuse screen: Denies threats or abuse. Denies injuries from another. Nutritional screening: No deficits noted. Tuberculosis screening: No symptoms or risk factors identified. Assessment: 10:53 General: Appears in no apparent distress. comfortable, Behavior is cooperative, ko1 appropriate for age. Pain: Denies pain. Neuro: No deficits noted. Cardiovascular: No deficits noted. Respiratory: No deficits noted. GI: No deficits noted. : No deficits noted. EENT: No deficits noted. Derm: kerrie to right side of head x 6. Musculoskeletal: No deficits noted. Vital Signs: 10:53 BP 140 / 65; Pulse 74; Resp 18; Temp 97; Pulse Ox 99% ; ko1 ED Course: 10:38 Patient arrived in ED. mg5 10:39 Tamera Barroso FNP is PHCP. jh7 10:39 Yoav Florentino MD is Attending Physician. jh7 10:48 Triage completed. iw 10:48 Arm band placed on. iw 10:53 Malinda Bravo RN is Primary Nurse. ko1 10:53 Patient has correct armband on for positive identification. Bed in low position. Call ko1 light in reach. Provided Education on: na. Pulse ox on. NIBP on. Door closed. Noise minimized. Lights dimmed. 10:53 No provider procedures requiring assistance completed. Patient did not have IV access ko1 during this emergency room visit. Removal of Removed kerrie from right frontal area Ferguson site is well healed Patient tolerated well. Administered Medications: No medications were administered Medication: 10:53 VIS not applicable for this client. ko1 Outcome: 10:53 Discharged to home ambulatory, with family, ko1 10:53 Condition: stable 10:53 Discharge instructions given to patient, Instructed on discharge instructions, follow up and referral plans. Demonstrated understanding of instructions, follow-up care, wound care, 10:56 Discharge ordered by . 7 10:57 Patient left the ED. ko1 Signatures: Jenny Reed RN RN Tamera Barroso FNP [place] [id number] Malinda Bravo, RN RN ko1 Michelle Aaron mg5 Corrections: (The following items were deleted from the chart) 10:48 10:46 Onset of symptoms was January 17, 2023 iw iw
[2023-01-17 11:16] VITALS: BP 140/65; TEMP 97; O2SAT 99
== END 2023-01-17 10:57 | disposition home or self-care (01) ==
LOC: ER 10:36
DX: Z48.02 Encounter for removal of sutures (principal)
CPT/HCPCS: 99283

== ENCOUNTER 2024-05-12 12:55 | Emergency (ER) | payer OTHER ==
--- OUTSIDE RECORDS SUMMARY | 2024-05-12 12:59 | XMS REPORT | Continuity of Care Document ---
Author Name Unknown Address [address] [facility] [address] [place] [address] [facility] thconnect Address [address] [facility] [address] [place] [address] Care Team Providers Care Nut Packer Name Role Phone Patrick GUZMAN, Camilla Primary Care Physician FABIANA LYNN Attending Clinician Unavailable Paula Abraham Attending Clinician Unavailable [email or web address]_S Attending Clinician Unavaila MAYO Robledo Attending Clinician Unavailable MAYO JON Attending Clinician Unavailable Mayo Jon DO Attending Clinician [phone] Petey COOK Attending Clinician Unavailable Petey Rey Attending Clinician [phone] Doctor Unassigned, Riley Attending Clinician U Hubert Martinez Attending Clinician [phone] JESSE CLARK Attending Clinician Unavailab le [email or web address]_S Admitting Clinician Unavaila MAYO Robledo Admitting Clinician Unavailable JESSE CLARK Admitting Clinician Unavailab le Payers Payer Name Policy Type Policy Number Effective Date Expirati on Date Source Problems Condition Name Condition Details Condition Category Status Onset Date Resolution Date Last Treatment Date Treating Clinician Comments Source Concussion Concussion Disease Active 09-02 00:00: 00 [facility] 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 Active 09-04 00:00: 00 [facility] Protein-ca nolan malnutriti on, mild Protein-ca nolan malnutriti on, mild Disease Active 416 00:00: 00 [facility] Chronic pelvic pain in female Chronic pelvic pain in female Disease Active 16 00:00: 00 [facility] Abnormal uterine bleeding Abnormal uterine bleeding Disease Active 07-25 00:00: 00 [facility] S/P hysterecto my with oophorecto my S/P hysterecto my with oophorecto my Disease Active 07-25 00:00: 00 [facility] S/P hysterecto my with oophorecto my S/P hysterecto my with oophorecto my Disease Active 07-25 00:00: 00 [facility] Allergies, Adverse Reactions, Alerts Allergy Name Allergy Type Status Severity Reaction(s) Onset Date Inactive Date Treating Clinician Comments Source Bactrim Propensi ty to adverse reaction to drug Active 2023-04 0 00:00: 00 Garcia Hart Fentanyl and Related - CLASS Propensi ty to adverse reaction to drug Active 6-10 00:00: 00 Garcia Hart SULFAMET HOXAZOLE -TRIMETH OPRIM DRUG Active Unknown-Cmnt 2020-04 00:00: 00 [facility] Sulfamet hoxazole -Trimeth oprim Propensi ty to adverse reaction s Active Unknown - See comments 2020-04 00:00: 00 Yeast infection [facility] Fentanyl Propensi ty to adverse reaction s Active Unknown - See comments 09-02 00:00: 00 [facility] FENTANYL DRUG INGREDI Active Unknown-Cmnt 09-02 00:00: 00 [facility] Social History Social Habit Start Date Stop Date Quantity Comments Source History of tobacco use Cigarette Smoker [facility] Exposure to SARS-CoV-2 (event) 2022-02-28 00:00:00 2022-03-10 22:50:00 Not sure [facility] Alcohol intake 2021-02-25 00:00:00 2021-02-25 00:00:00 Current non-drinker of alcohol (finding) [facility] Cigarettes smoked current (pack per day) - Reported 2017-09-04 00:00:00 2017-09-04 00:00:00 [facility] Tobacco use and exposure 2017-09-04 00:00:00 2017-09-04 00:00:00 Smokeless tobacco non-user [facility] Tobacco Comment 2017-09-04 00:00:00 2017-09-04 00:00:00 1/2 [facility] Sex Assigned At 1975 00:00:00 1975 00:00:00 [facility] Smoking Status Start Date Stop Date Source Smokes tobacco daily 2017-09-04 00:00:00 [facility] Medications Ordered Medication Name Filled Medication Name Start Date Stop Date Current Medication? Ordering Clinician Indication Dosage Frequency Signature (SIG) Comments Components Source Cipro 500 mg tablet 2023-04 00:00: 00 Yes 1mg Garcia Hart Cipro 500 mg tablet 2023-04 00:00: 00 Yes 1mg Garcia Hart TRAZODONE 50MG 2022-04 00:00: 00 Yes 50 Garcia Hart TAKE 1 TABLET BY MOUTH AT BEDTIME 2022-04 00:00: 00 Yes 10 Garcia Hart GIVE 4 MG ON FIRST DOSE. CAN GIVE ANOTHER 4 MG AFTER AN HOUR IF NEEDED 2022-04 00:00: 00 05-05 00:00 :00 No 41 Garcia Hart 1 SPRAY INTO NOSTRIL FOR OPIOID OVERDOSE. MAY REPEAT DOSE IN ALTERNATE NOSTRILS Q2-3 MIN UNTIL PT RESPONSIVE OR EMS ARRIVE 2022-04 00:00: 00 05-05 00:00 :00 No 401 Garcia Hart 1 STRIP SL BID 2022-04 020 00:00: 00 05-05 00:00 :00 No 82 Garcia Hart TAKE 1 TABLET BY MOUTH AT BEDTIME NEEDED 11-17 00:00: 00 Yes Garcia Hart DIVALPROEX 500MG DR 8-09 00:00: 00 Yes [id number] Garcia Hart 1 STRIP SL BID 2023-0 7-15 00:00: 00 05-05 00:00 :00 No 82 Garcia Hart TAKE 2 TABLETS DAILY. - 00:00: 00 05-05 00:00 :00 No 200 Garcia Hart TRAZODONE 150MG 7- 00:00: 00 Yes [id number] Garcia Hart 1 STRIP SL BID -19 00:00: 00 05-05 00:00 :00 No 82 Garcia Hart 1 SPRAY INTO NOSTRIL FOR OPIOID OVERDOSE. MAY REPEAT DOSE IN ALTERNATE NOSTRILS Q2-3 MIN UNTIL PT RESPONSIVE OR EMS ARRIVE 09-18 00:00: 00 05-05 00:00 :00 No 401 Garcia Hart GIVE 4 MG ON FIRST DOSE. CAN GIVE ANOTHER 4 MG AFTER AN HOUR IF NEEDED 09-18 00:00: 00 05-05 00:00 :00 No 41 Garcia Hart TAKE 2 TABLETS DAILY. 09-18 00:00: 00 05-05 00:00 :00 No 200 Garcia Hart DIVALPROEX 500MG DR 08-31 00:00: 00 Yes Garcia Hart TAKE 1 TABLET BY MOUTH ONCE DAILY AT BEDTIME NEEDED FOR SLEEP 08-31 00:00: 00 Yes Garcia Hart TAKE 1 TABLET BY MOUTH AT BEDTIME 08-31 00:00: 00 Yes Garcia Sara Hart OLANZAPINE 10MG - 00:00: 00 05-05 00:00 :00 No [id number] Garcia Hart TAKE 1 TABLET BY MOUTH AT BEDTIME -31 00:00: 00 05-05 00:00 :00 No Garcia Sara Tanner AMOXICILLIN 500MG 1-15 00:00: 00 05-05 00:00 :00 No [id number] Garcia Hart TAKE 1 CAPSULE BY MOUTH THREE TIMES DAILY FOR 7 DAYS 1-13 00:00: 00 05-05 00:00 :00 No Garcia Sara Tanner ibuprofen (IBU) tablet 600 mg 2021-04 2- 05:15: 00 03-11 05:23 :00 No 600mg 600 mg, Oral, ONCE, 1 dose, On Tue03/10/22 at 2315, MAGGIE [facility] HYDROcodone -acetaminop hen (NORCO 5) 5-325 mg tablet 1 tablet 2021-04 05:15: 00 03-11 05:23 :00 No 1{tbl} 1 tablet, Oral, ONCE, 1 dose, On Tue03/10/22 at 2315, MAGGIE [facility] traMADoL 50 mg tablet 2021-04 00:00: 00 Yes [id number] 50mg Take 1 tablet by mouth every 6 (six) hours as needed for Pain (scale 1-3). Indication s: acute pain [facility] ibuprofen 600 mg tablet 2021-04 00:00: 00 Yes [id number] 600mg Take 1 tablet by mouth every 6 (six) hours as needed for Pain (scale 4-6). [facility] cephALEXin (KEFLEX) capsule 500 mg 2020-04 19:30: 00 02-25 18:29 :00 No 500mg 500 mg, Oral, ONCE, 1 dose, On Tue02/25/21 at 1330, MAGGIE
Re ason for Anti-Infec tive: Documented Infection< br>Documen carol Infection Site: Urine
D uration of Therapy: 10 days [facility] ibuprofen (IBU) tablet 600 mg 2020-04 19:30: 00 02-25 18:29 :00 No 600mg 600 mg, Oral, ONCE, 1 dose, On Tue02/25/21 at 1330, MAGGIE [facility] ibuprofen 600 mg tablet 2020-04 00:00: 00 Yes [id number] 600mg Take 1 tablet by mouth every 6 (six) hours as needed for Pain (scale 4-6). [facility] cephALEXin (KEFLEX) 500 mg capsule 2020-04 00:00: 00 03-08 05:59 :00 No [id number] 500mg Take 1 capsule by mouth 3 (three) times daily for 10 days. [facility] ciprofloxac in HCl 500 mg tablet 2018-04 00:00: 00 Yes [id number] 500mg Take 1 tablet by mouth 2 (two) times daily. [facility] ALPRAZolam (XANAX) 1 mg tablet 09-03 14:36: 26 Yes 1mg Take 1 mg by mouth 2 (two) times daily. [facility] ibuprofen 600 mg tablet 09-06 00:00: 00 Yes 600mg Take 1 tablet by mouth every 6 (six) hours. [facility] Vital Signs Vital Name Observation Time Observation Value Comments S shayna Systolic blood pressure 2022-03-11 04:45:00 124 mm[Hg] [facility] Diastolic blood pressure 2022-03-11 04:45:00 80 mm[Hg] [facility] Heart rate 2022-03-11 04:45:00 76 /min [facility] Body temperature 2022-03-11 04:45:00 36.39 Sara [facility] Respiratory rate 2022-03-11 04:45:00 18 /min [facility] Body weight 2022-03-11 04:45:00 54.432 kg [facility] BMI 2022-03-11 04:45:00 18.79 kg/m2 [facility] Oxygen saturation in Arterial blood by Pulse oximetry 2022-03-11 04:45:00 98 /min [facility] Systolic blood pressure 2021-02-25 18:30:00 100 mm[Hg] [facility] Diastolic blood pressure 2021-02-25 18:30:00 70 mm[Hg] [facility] Heart rate 2021-02-25 18:30:00 63 /min [facility] Respiratory rate 2021-02-25 18:30:00 25 /min [facility] Oxygen saturation in Arterial blood by Pulse oximetry 2021-02-25 18:30:00 98 /min [facility] Body temperature 2021-02-25 17:23:00 36.78 Sara [facility] Body weight 2021-02-25 17:23:00 50.349 kg [facility] BMI 2021-02-25 17:23:00 17.39 kg/m2 [facility] BP Systolic 2024-02-25 11:02:00 109 mm[Hg] Step hen F Tanner BP Diastolic 2024-02-25 11:02:00 76 mm[Hg] Fish phen F Tanner Weight Measured 2024-02-25 11:02:00 110.60 pounds Garcia F Tanner Height Measured 2024-02-25 11:02:00 67.00 inches Garcia F Tanner Body Temperature 2024-02-25 11:02:00 98.10 degrees Garcia F Tanner Heart Rate 2024-02-25 11:02:00 70.00 /min Torrie en F Tanner Respiratory Rate 2024-02-25 11:02:00 18.00 /min Garcia F Tanner BP Diastolic 2023-01-28 15:53:00 81 mm[Hg] Fish phen F Tanner Weight Measured 2023-01-28 15:53:00 107.40 pounds Garcia F Tanner Height Measured 2023-01-28 15:53:00 67.00 inches Garcia F Tanner Body Temperature 2023-01-28 15:53:00 98.20 degrees Garcia F Tanner Heart Rate 2023-01-28 15:53:00 86.00 /min Torrie en F Tanner Respiratory Rate 2023-01-28 15:53:00 Garcia F Tanner BP Systolic 2023-01-28 15:53:00 121 mm[Hg] Step hen F Tanner BP Systolic 2022-10-23 11:31:00 135 mm[Hg] Step hen F Tanner BP Diastolic 2022-10-23 11:31:00 89 mm[Hg] Fish phen F Tanner Weight Measured 2022-10-23 11:31:00 112.80 pounds Garcia F Tanner Height Measured 2022-10-23 11:31:00 67.00 inches Garcia F Tanner Body Temperature 2022-10-23 11:31:00 98.10 degrees Garcia F Tanner Heart Rate 2022-10-23 11:31:00 75.00 /min Torrie en F Tanner Respiratory Rate 2022-10-23 11:31:00 19.00 /min Garcia F Tanner Body Temperature 2022-09-27 11:25:00 97.80 degrees Garcia Hart Heart Rate 2022-09-27 11:25:00 68.00 /min Torrie en F Tanner Respiratory Rate 2022-09-27 11:25:00 Garcia Hart BP Systolic 2022-09-27 11:25:00 138 mm[Hg] Step spencer Hart BP Diastolic 2022-09-27 11:25:00 88 mm[Hg] Fish phen Sara Hart Weight Measured 2022-09-27 11:25:00 111.20 pounds Garcia Hart Height Measured 2022-09-27 11:25:00 67.00 inches Garcia Hart BP Systolic 2022-09-18 12:00:00 Step hen Sara Hart BP Diastolic 2022-09-18 12:00:00 Fish phen Sara Hart Weight Measured 2022-09-18 12:00:00 117.40 pounds Garcia Hart Height Measured 2022-09-18 12:00:00 67.00 inches Garcia Hart Body Temperature 2022-09-18 12:00:00 Garcia Hart Heart Rate 2022-09-18 12:00:00 Torrie en Sara Hart Respiratory Rate 2022-09-18 12:00:00 [facility] Procedures Procedure Date / Time Performed Performing Clinicia n Source XR CERVICAL SPINE 3 VW 2022-03-11 05:58:00 Flavia Jon [facility] XR ELBOW >3 VW RIGHT 2022-03-11 05:58:00 Cecilia Jon [facility] XR HUMERUS 2 VW RIGHT 2022-03-11 05:58:00 Beverly Jon [facility] XR SHOULDER 2+ VW RIGHT 2022-03-11 05:58:00 Mayo Jon [facility] CONSENT/REFUSAL FOR DIAGNOSIS AND TREATMENT 2022-03-11 04:45:50 Doctor Unassigned, Riley [facility] POCT TEST 2021-02-25 17:51:00 Petey Cook [facility] MAGNESIUM 2021-02-25 17:34:00 Petey Cook [facility] COMP. METABOLIC PANEL ([id number]) 2021-02-25 17:34:00 Petey Cook [facility] CBC WITH DIFF 2021-02-25 17:34:00 Petey Cook [facility] URINALYSIS 2021-02-25 17:34:00 Petey Cook [facility] NOTICE OF PRIVACY PRACTICES 2021-02-25 17:15:27 Doctor Unassigned, Riley [facility] CONSENT/REFUSAL FOR DIAGNOSIS AND TREATMENT 2021-02-25 17:15:06 Doctor Unassigned, Riley [facility] Encounters Start Date/Time End Date/Time Encounter Type Admission Type Attending [facility] Care Facility Care Department Encounter ID Source 2022-01-11 14:01:19 Outpatient [facility] [id number] [facility] 2021-04-23 21:34:53 Outpatient FABIANA LYNN [facility] [id number] [facility] 2024-02-25 10:55:43 2024-02-25 10:55:43 Outpatient SFA SFA [id number] Garcia Hart 2024-02-25 00:00:00 2024-02-25 00:00:00 Outpatient Visit SFA [id number] Garcia Hart 2024-02-08 00:00:00 2024-02-08 00:00:00 Outpatient Visit SFA [id number] Garcia Ruiz Tanner 2023-03-29 12:01:00 2023-03-29 12:01:00 Outpatient Paula Abraham [facility] CH [id number] [facility] 2023-02-09 00:00:00 2023-02-09 00:00:00 Outpatient GC_GCBZW_Ka diyala_S [facility] [id number] [facility] 2023-01-28 15:35:29 2023-01-28 15:35:29 Outpatient SFA SFA [id number] Garcia Hart 2022-10-23 11:27:29 2022-10-23 11:27:29 Outpatient [facility] [id number] Garcia Hart 2022-09-27 11:15:42 2022-09-27 11:15:42 Outpatient [facility] [id number] Garcia Hart 2022-09-18 11:50:00 2022-09-18 11:50:00 Outpatient [facility] [id number] Garcia Hart 2022-03-10 22:48:00 2022-03-11 01:23:00 Emergency X MAYO JON DONTRELLMAYO Benton [facility] ERT [id number] [facility] 2022-03-10 22:48:00 2022-03-11 01:23:00 Emergency Mayo Jon [facility] [id number] [facility] 2021-02-25 11:25:00 2021-02-25 12:47:00 Emergency X Petey COOK [facility] ERT [id number] [facility] 2021-02-25 11:25:00 2021-02-25 12:47:00 Emergency Petey Cook [facility] [id number] [facility] 2021-02-25 00:00:00 2021-02-25 00:00:00 Orders Only Doctor Unassigned, Riley [facility] [id number] [facility] 2020-02-21 05:42:39 2020-02-21 23:59:00 Hospital Encounter Hubert Valverde [facility] [id number] 2019-08-28 00:00:00 2019-08-28 00:00:00 Orders Only Doctor Unassigned, Riley [facility] [id number] 2019-03-11 23:14:44 2019-03-12 07:10:00 [facility] ERT [id number] [facility] Results Test Description Test Time Test Comments Results Result Co mments Source CULTURE, URINE 2024-02-29 15:34:57 SPECIMEN NUMBER: [id number] CULTURE, URINE SPECIMEN NUMBER: [id number] SOURCE: URINE REPORT STATUS: FINAL ISOLATE NUMBER 1: ORGANISM: 02/27/2024 >100,000 CFU/ML GRAM NEGATIVE BACILLI IDENTIFICATION: 02/28/2024 ESCHERICHIA COLI E. COLI AMOX ICILLIN/CA INTERMED 16/8AMPICILLIN RESISTANT >16CEFAZOLIN INTERMED 16CEFTRIAXONE SENSITIVE <=1CIPROFLOXACIN RESISTANT 2LEVOFLOXACIN INTERMED 1NITROFURANTOIN SENSITIVE <=32PIP/TAZOBAC SENSITIVE <=16TOBRAMYCIN SENSITIVE <=4TRIMETH/SULFA SENSITIVE <=2/38 NOTE: NUMBERS DISPLAYED REPRESENT MINIMUM INHIBITORY CONCENTRATION (SCOTTIE) WHICH IS EXPRESSED IN MCG/ML. UNLESS OTHERWISE INDICATED, ALL TESTING PERFORMED AT [facility] [address] [place] [address] CLAIMS ANALYST: KEYSHA MIRAMONTES M.D. CLIA NUMBER [id number] [facility] [place]. [id number] THC METABOLITE, QUANT, [id number] 23:57:45* Test Item Value Reference Range Interpretation Comme nts CARBOXY-THC INTERP (test code = 82280) Positive A CARBOXY-THC QNT (test code = 48721) 34 ng/mL <15 H Reference range indicates cutoff for positive result determination. Specimen Type: Urine Urine drug and metabolite concentrations are dependent on manyfactors, including patient compliance, drug dosing, dosing interval,individual variation in drug absorption and metabolism, urineconcentration, and limitations of testing. Assay is intended formedical purposes only, not for forensic use. This test was developed and its performance characteristicsdetermined by [facility] ([facility]). It has not beencleared or approved by the U.S. Food and Drug Administration (FDA).The FDA has determined that such clearance or approval is notnecessary. This test is used for clinical purposes and should not beregarded as investigational or for research. [facility] is qualified toperform high complexity testing under the Clinical LaboratoryImprovement Amendments (CLIA). TESTING PERFORMED AT [facility] [address] [facility], [address], [address] [address] CLIA NO: [id number] COCAINE METAB, QUANT, [id number] 23:57:45* Test Item Value Reference Range Interpretation Comments BENZOYLECGONINE INTERP (test code = 55368) Positive A BENZOYLECGONINE QNT (test code = 31659) >2000 ng/mL <100 H Reference ra nge indicates cutoff for positive result determination. Specimen Type: Urine Urine drug and metabolite concentrations are dependent on manyfactors, including patient compliance, drug dosing, dosing interval,individual variation in drug absorption and metabolism, urineconcentration, and limitations of testing. Assay is intended formedical purposes only, not for forensic use. This test was developed and its performance characteristicsdetermined by [facility] ([facility]). It has not beencleared or approved by the U.S. Food and Drug Administration (FDA).The FDA has determined that such clearance or approval is notnecessary. This test is used for clinical purposes and should not beregarded as investigational or for research. [facility] is qualified toperform high complexity testing under the Clinical LaboratoryImprovement Amendments (CLIA). TESTING PERFORMED AT [facility]. [address] [facility], [address], [address] [address] CLIA NO: [id number] OPIATE, QUANT, [id number] 23:57:45* Test Item Value Reference Range Interpretation Comments MORPHINE INTERP (test code = 55113) Negative MORPHINE QNT (test code = 89855) <50 ng/mL <100 OXYMORPHONE INTERP (test code = 33341) Negative OXYMORPHONE QNT (test code = 24058) <50 ng/mL <100 HYDROMORPHONE INTERP (test code = 323726) Negative HYDROMORPHONE QNT (test code = 149427) <50 ng/mL <100 CODEINE INTERP (test code = 92133) Below Cutoff A CODEINE QNT (test code = 36702) 62 ng/mL <100 OXYCODONE INTERP (test code = 931124) Negative OXYCODONE QNT (test code = 106218) <50 ng/mL <100 HYDROCODONE INTERP (test code = 82097) Positive A HYDROCODONE QNT (test code = 74676) 194 ng/mL <100 H 6-ACETYLMORPHINE INTERP (test code = 238793) Negative 6-ACETYLMORPHINE QNT (test code = 415505) <10 ng/mL <10 Reference range indicates cutoff for positive result determination.Limit of detection and quantitation (LOD/Q) thresholds may be lowerthan positive cutoff. Results detected above LOD/Q but below cutoffare interpreted as Below Cutoff. Specimen Type: Urine Urine drug and metabolite concentrations are dependent on manyfactors, including patient compliance, drug dosing, dosing interval,individual variation in drug absorption and metabolism, urineconcentration, and limitations of testing. Assay is intended formedical purposes only, not for forensic use. This test was developed and its performance characteristicsdetermined by [facility] ([facility]). It has not beencleared or approved by the U.S. Food and Drug Administration (FDA).The FDA has determined that such clearance or approval is notnecessary. This test is used for clinical purposes and should not beregarded as investigational or for research. [facility] is qualified toperform high complexity testing under the Clinical LaboratoryImprovement Amendments (CLIA). TESTING PERFORMED AT [facility] [address] [place] [address], [address], [place] [id number] CLIA NO: [id number] UNLESS OTHERWISE INDICATED, ALL TESTING PERFORMED AT [facility] [address] [place] [address] CLAIMS ANALYST: KEYSHA MIRAMONTES M.D. CLIA NUMBER [id number] [place]. [id number] AMPHETAMINES, QUANT, URINE [REFLEX]2023-02-02 00:00:00* Test Item Value Reference Range Interpretation Comme nts AMPHETAMINE INTERP (test cod e = 78284) Positive AMPHETAMINE QNT (test code = 56998) 2028 ng/mL METHAMPHETAMINE INTERP (test code = 55058) Positive METHAMPHETAMINE QNT (test co de = 58628) >5000 ng/mL MDA INTERP (test code = 99638) Negative MDA QNT (test code = 38107) <50 ng/mL MDMA INTERP (test code = 741792) Negative MDMA QNT (test code = 297369) <50 ng/mL [facility] METABOLITE, QUANT, URINE [REFLEX]2023-02-02 00:00:00* Test Item Value Reference Range Interpretation Comme nts CARBOXY-THC INTERP (test cod e = 04397) Positive CARBOXY-THC QNT (test code = 74011) 34 ng/mL Garcia F AustinCOCAINE METAB, QUANT, URINE [REFLEX]2023-02-02 00:00:00* Test Item Value Reference Range Interpretation Comme nts BENZOYLECGONINE INTERP (test code = 54055) Positive BENZOYLECGONINE QNT (test co de = 76534) >2000 ng/mL Garcia F AustinOPIATE, QUANT, URINE [REFLEX]2023-02-02 00:00:00* Test Item Value Reference Range Interpretation Comme nts MORPHINE INTERP (test code = 83277) Negative MORPHINE QNT (test code = 11788) <50 ng/mL OXYMORPHONE INTERP (test cod e = 72017) Negative OXYMORPHONE QNT (test code = 27885) <50 ng/mL HYDROMORPHONE INTERP (test c ode = 763479) Negative HYDROMORPHONE QNT (test code = 401203) <50 ng/mL CODEINE INTERP (test code = 29501) Below Cutoff CODEINE QNT (test code = 59463) 62 ng/mL OXYCODONE INTERP (test code = 652336) Negative OXYCODONE QNT (test code = 476518) <50 ng/mL HYDROCODONE INTERP (test cod e = 79954) Positive HYDROCODONE QNT (test code = 18294) 194 ng/mL 6-ACETYLMORPHINE INTERP (anaya t code = 408422) Negative 6-ACETYLMORPHINE QNT (test c ode = 196245) <10 ng/mL Garcia F AustinAMPHETAMINES, QUANT, URINE [REFLEX]2023-02-02 00:00:00* Test Item Value Reference Range Interpretation Comme nts AMPHETAMINE INTERP (test cod e = 24083) Positive AMPHETAMINE QNT (test code = 59292) 2028 ng/mL METHAMPHETAMINE INTERP (test code = 71065) Positive METHAMPHETAMINE QNT (test co de = 56450) >5000 ng/mL MDA INTERP (test code = 85066) Negative MDA QNT (test code = 52813) <50 ng/mL MDMA INTERP (test code = 968344) Negative MDMA QNT (test code = 262752) <50 ng/mL Garcia F AustinTHC METABOLITE, QUANT, URINE [REFLEX]2023-02-02 00:00:00* Test Item Value Reference Range Interpretation Comme nts CARBOXY-THC INTERP (test cod e = 05942) Positive CARBOXY-THC QNT (test code = 41804) 34 ng/mL Garcia F AustinCOCAINE METAB, QUANT, URINE [REFLEX]2023-02-02 00:00:00* Test Item Value Reference Range Interpretation Comme nts BENZOYLECGONINE INTERP (test code = 84001) Positive BENZOYLECGONINE QNT (test co de = 73681) >2000 ng/mL Garcia F AustinOPIATE, QUANT, URINE [REFLEX]2023-02-02 00:00:00* Test Item Value Reference Range Interpretation Comme nts MORPHINE INTERP (test code = 77310) Negative MORPHINE QNT (test code = 93986) <50 ng/mL OXYMORPHONE INTERP (test cod e = 84576) Negative OXYMORPHONE QNT (test code = 45163) <50 ng/mL HYDROMORPHONE INTERP (test c ode = 738402) Negative HYDROMORPHONE QNT (test code = 591108) <50 ng/mL CODEINE INTERP (test code = 33346) Below Cutoff CODEINE QNT (test code = 95368) 62 ng/mL OXYCODONE INTERP (test code = 955505) Negative OXYCODONE QNT (test code = 925520) <50 ng/mL HYDROCODONE INTERP (test cod e = 55687) Positive HYDROCODONE QNT (test code = 87187) 194 ng/mL 6-ACETYLMORPHINE INTERP (anaya t code = 476630) Negative 6-ACETYLMORPHINE QNT (test c ode = 584079) <10 ng/mL Garcia HartDRUG ABUSE SCREEN 10 REFLEX [id number] 04:33:48* Test Item Value Reference Range Interpretation Comments AMPHETAMINES (test code = 3201) SEE REFLEX TESTING NEGATIVE A BARBITURATES (test code = 3202) NEGATIVE NEGATIVE BENZODIAZEPINES (test code = 3203) NEGATIVE NEGATIVE CANNABINOIDS (test code = 3204) SEE REFLEX TESTING NEGATIVE A COCAINE METABOLITE (test code = 3205) SEE REFLEX TESTING NEGATIVE A OPIATES (test code = 3209) SEE REFLEX TESTING NEGATIVE A OXYCODONE (test code = 28385) NEGATIVE NEGATIVE PHENCYCLIDINE (test code = 3210) NEGATIVE NEGATIVE METHADONE (test code = 3207) NEGATIVE NEGATIVE BUPRENORPHINE (test code = 36793) NEGATIVE NEGATIVE SOURCE (test code = 679470) URINE SEE BELOW FO R THRESHOLDS AND IMPORTANT METHOD NOTES ANALYTE SCREENING CUTOFF CONFIRMATORY CUTOFF ___AMPHETAMINES 500 NG/ML 100 NG/MLBARBITURATES 200 NG/ML 100 NG/MLBENZODIAZEPINES 200 NG/ML 100 NG/MLCANNABINOIDS (THC) 20 NG/ML 15 NG/MLCOCAINE METABOLITES 150 NG/ML 100 NG/MLOPIATE METABOLITES 300 NG/ML 100 NG/MLOXYCODONE 100 NG/ML 100 NG/MLPHENCYCLIDINE (PCP) 25 NG/ML 25 NG/MLMETHADONE 300 NG/ML 100 NG/MLBUPRENORPHINE 5 NG/ML 5 NG/ML NOTE: Screening methodology is qualitative Enzyme Immunoassay.The screening method may be less sensitive for certain medicationsincluding clonazepam and lorazepam in the benzodiazepine assay andtramadol or fentanyl in the opiate assay, amongst others. Patientcompliance, hydration status, timing and dose of medications, drugabsorption and specimen quality may affect screening assay.For clinical discrepancies, consider directed testing for specificcompounds or contact the laboratory [facility]. This test is specified for medicalpurposes only. It is not valid for forensic use. DRUG ABUSE PANEL 10 WITH [id number] 00:00:00* Test Item Value Reference Range Interpretation Comme nts AMPHETAMINES (test code = 3201) SEE REFLEX TESTING BARBITURATES (test code = 3202) NEGATIVE BENZODIAZEPINES (test code = 3203) NEGATIVE CANNABINOIDS (test code = 3204) SEE REFLEX TESTING COCAINE METABOLITE (test code = 3205) SEE REFLEX TESTING OPIATES (test code = 3209) SEE REFLEX TESTING OXYCODONE (test code = 78792) NEGATIVE PHENCYCLIDINE (test code = 3210) NEGATIVE METHADONE (test code = 3207) NEGATIVE BUPRENORPHINE (test code = 22727) NEGATIVE SOURCE (test code = 943426) URINE Garcia Ruiz AustinDRUG ABUSE PANEL 10 WITH [id number] 00:00:00* Test Item Value Reference Range Interpretation Comme nts AMPHETAMINES (test code = 3201) SEE REFLEX TESTING BARBITURATES (test code = 3202) NEGATIVE BENZODIAZEPINES (test code = 3203) NEGATIVE CANNABINOIDS (test code = 3204) SEE REFLEX TESTING COCAINE METABOLITE (test code = 3205) SEE REFLEX TESTING OPIATES (test code = 3209) SEE REFLEX TESTING OXYCODONE (test code = 12882) NEGATIVE PHENCYCLIDINE (test code = 3210) NEGATIVE METHADONE (test code = 3207) NEGATIVE BUPRENORPHINE (test code = 43624) NEGATIVE SOURCE (test code = 487055) URINE Garcia Ruiz AustinHEPATITIS PROFILE (A,B,C)2022-09-21 00:00:00* Test Item Value Reference Range Interpretation Comme nts HEPATITIS A TOTAL AB (test c ode = 2725) REACTIVE HEPATITIS B SURF AG (test co de = 2739) NON-REACTIVE HEP B CORE TOTAL AB (test co de = 2729) NON-REACTIVE HEPATITIS B SURFACE AB (test code = 2737) NON-REACTIVE HEPATITIS C ANTIBODY (test c ode = 4675) NON-REACTIVE INTERPRETATION HEPATITIS A: (test code = 2552) (NOTE) INTERPRETATION HEPATITIS B: (test code = 48621) (NOTE) INTERPRETATION HEPATITIS C: (test code = 01870) (NOTE) Garcia F AustinHIV 1/2 4TH GEN, RFLX [id number] 00:00:00* Test Item Value Reference Range Interpretation Comme nts HIV 1/2 4TH GEN, RFLX CONF ( test code = 3514) NON-REACTIVE Garcia HartHEPATITIS A IgM [REFLEX]2022-09-21 00:00:00* Test Item Value Reference Range Interpretation Comme nts HEPATITIS A IgM (test code = 2728) NON-REACTIVE Garcia Ruiz AustinHEPATITIS PROFILE (A,B,C)2022-09-21 00:00:00* Test Item Value Reference Range Interpretation Comme nts HEPATITIS A TOTAL AB (test c ode = 2725) REACTIVE HEPATITIS B SURF AG (test co de = 2739) NON-REACTIVE HEP B CORE TOTAL AB (test co de = 2729) NON-REACTIVE HEPATITIS B SURFACE AB (test code = 2737) NON-REACTIVE HEPATITIS C ANTIBODY (test c ode = 4675) NON-REACTIVE INTERPRETATION HEPATITIS A: (test code = 2552) (NOTE) INTERPRETATION HEPATITIS B: (test code = 39823) (NOTE) INTERPRETATION HEPATITIS C: (test code = 23903) (NOTE) Garcia HartHIV 1/2 4TH GEN, RFLX [id number] 00:00:00* Test Item Value Reference Range Interpretation Comme nts HIV 1/2 4TH GEN, RFLX CONF ( test code = 3514) NON-REACTIVE Garcia MedranoPATITIS A IgM [REFLEX]2022-09-21 00:00:00* Test Item Value Reference Range Interpretation Comme nts HEPATITIS A IgM (test code = 2728) NON-REACTIVE Garcia HartCOMPREHENSIVE METABOLIC [id number] 00:00:00* Test Item Value Reference Range Interpretation Comme nts GLUCOSE (test code = 2217) 90 MG/DL BUN (test code = 2208) 12 MG/DL CREATININE (test code = 2214) 0.85 MG/DL eGFR (2020 CKD-EPI) (test co de = 22008) 86 ML/MIN/1.73 CALC BUN/CREAT (test code = 2235) 14 RATIO SODIUM (test code = 2231) 140 MEQ/L POTASSIUM (test code = 2228) 3.9 MEQ/L CHLORIDE (test code = 2215) 100 MEQ/L CARBON DIOXIDE (test code = 2206) 25 MEQ/L CALCIUM (test code = 2209) 9.9 MG/DL PROTEIN, TOTAL (test code = 2229) 7.2 G/DL ALBUMIN (test code = 2201) 4.6 G/DL CALC GLOBULIN (test code = 2240) 2.6 G/DL CALC A/G RATIO (test code = 2234) 1.8 RATIO BILIRUBIN, TOTAL (test code = 2207) <0.2 MG/DL ALKALINE PHOSPHATASE (test code = 2204) 68 U/L AST (test code = 2218) 16 U/L ALT (test code = 2219) 11 U/L Garcia HartCOMPREHENSIVE METABOLIC [id number] 00:00:00* Test Item Value Reference Range Interpretation Comme nts GLUCOSE (test code = 2217) 90 MG/DL BUN (test code = 2208) 12 MG/DL CREATININE (test code = 2214) 0.85 MG/DL eGFR (2020 CKD-EPI) (test co de = 29138) 86 ML/MIN/1.73 CALC BUN/CREAT (test code = 2235) 14 RATIO SODIUM (test code = 2231) 140 MEQ/L POTASSIUM (test code = 2228) 3.9 MEQ/L CHLORIDE (test code = 2215) 100 MEQ/L CARBON DIOXIDE (test code = 2206) 25 MEQ/L CALCIUM (test code = 2209) 9.9 MG/DL PROTEIN, TOTAL (test code = 2229) 7.2 G/DL ALBUMIN (test code = 2201) 4.6 G/DL CALC GLOBULIN (test code = 2240) 2.6 G/DL CALC A/G RATIO (test code = 2234) 1.8 RATIO BILIRUBIN, TOTAL (test code = 2207) <0.2 MG/DL ALKALINE PHOSPHATASE (test code = 2204) 68 U/L AST (test code = 2218) 16 U/L ALT (test code = 2219) 11 U/L Garcia HartCBC W/AUTO [id number] 00:00:00* Test Item Value Reference Range Interpretation Comme nts WBC (test code = 1001) 8.3 K/UL RBC (test code = 1002) 4.55 M/UL HEMOGLOBIN (test code = 1003) 14.4 G/DL HEMATOCRIT (test code = 1004) 43.7 % MCV (test code = 1005) 96.0 fL MCH (test code = 1006) 31.6 PG MCHC (test code = 1007) 33.0 G/DL RDW (test code = 1038) 12.3 % NEUTROPHILS (test code = 1008) 59.9 % LYMPHOCYTES (test code = 1010) 31.7 % MONOCYTES (test code = 1011) 6.4 % EOSINOPHILS (test code = 1012) 1.2 % BASOPHILS (test code = 1013) 0.7 % IMMATURE GRANULOCYTES (test code = 1036) 0.1 % NUCLEATED RBCS (test code = 1065) 0.0 /100WBC'S PLATELET COUNT (test code = 1015) 287 K/UL ABSOLUTE NEUTROPHILS (test c ode = 1066) 4.98 K/UL ABSOLUTE LYMPHOCYTES (test c ode = 1067) 2.64 K/UL ABSOLUTE MONOCYTES (test cod e = 1068) 0.53 K/UL ABSOLUTE EOSINOPHILS (test c ode = 1040) 0.10 K/UL ABSOLUTE BASOPHILS (test cod e = 1069) 0.06 K/UL ABS IMMATURE GRANULOCYTES (t est code = 1020) 0.01 K/UL ABS NUCLEATED RBCS (test cod e = 33524) 0.00 K/UL [facility] W[facility]AUTO [id number] 00:00:00* Test Item Value Reference Range Interpretation Comme nts WBC (test code = 1001) 8.3 K/UL RBC (test code = 1002) 4.55 M/UL HEMOGLOBIN (test code = 1003) 14.4 G/DL HEMATOCRIT (test code = 1004) 43.7 % MCV (test code = 1005) 96.0 fL MCH (test code = 1006) 31.6 PG MCHC (test code = 1007) 33.0 G/DL RDW (test code = 1038) 12.3 % NEUTROPHILS (test code = 1008) 59.9 % LYMPHOCYTES (test code = 1010) 31.7 % MONOCYTES (test code = 1011) 6.4 % EOSINOPHILS (test code = 1012) 1.2 % BASOPHILS (test code = 1013) 0.7 % IMMATURE GRANULOCYTES (test code = 1036) 0.1 % NUCLEATED RBCS (test code = 1065) 0.0 /100WBC'S PLATELET COUNT (test code = 1015) 287 K/UL ABSOLUTE NEUTROPHILS (test c ode = 1066) 4.98 K/UL ABSOLUTE LYMPHOCYTES (test c ode = 1067) 2.64 K/UL ABSOLUTE MONOCYTES (test cod e = 1068) 0.53 K/UL ABSOLUTE EOSINOPHILS (test c ode = 1040) 0.10 K/UL ABSOLUTE BASOPHILS (test cod e = 1069) 0.06 K/UL ABS IMMATURE GRANULOCYTES (t est code = 1020) 0.01 K/UL ABS NUCLEATED RBCS (test cod e = 53990) 0.00 K/UL Garcia [id number] 18:04:32* Test Item Value Reference Range Interpretation Comme nts MAGNESIUM (test code = 5226339408) 1.7 mg/dL 1.7-2.4 Lab Interpretation (test cod e = 71886-9) [facility]2021-[facility]25 18:04:11* Test Item Value Reference Range Interpretation Comme nts NA (test code = 4150453387) 139 mmol/L 135-145 K (test code = 8672284112) 4.0 mmol/L 3.5-5.0 CL (test code = 1358295279) 106 mmol/L 98-108 CO2 TOTAL (test code = 3449634937) 25 mmol/L 23-31 AGAP (test code = 1934983697) 2-16 BUN (test code = 0444422422) 9 mg/dL 7-23 GLUCOSE (test code = 5701849979) 159 mg/dL 70-110 H CREATININE (test code = 3231998596) 0.67 mg/dL 0.50-1.04 TOTAL BILI (test code = 4639347299) 0.5 mg/dL 0.1-1.1 CALCIUM (test code = 2802222926) 9.8 mg/dL 8.6-10.6 T PROTEIN (test code = 5762684003) 6.9 g/dL 6.3-8.2 ALBUMIN (test code = 5800655941) 4.3 g/dL 3.5-5.0 ALK PHOS (test code = 5662140832) 58 U/L 34-122 ALTv (test code = 1742-6) 13 U/L 5-35 AST(SGOT) (test code = 1844369773) 20 U/L 13-40 eGFR (test code = 5730417334) mL/min/1.73m2 AMISH (test code = AMISH) Association of [...] or abnormalities in imaging tests). Lab Interpretation (test code = 18776-4) Abnormal [facility] [id number] 17:51:00* Test Item Value Reference Range Interpretation Comme nts POCT PREG (test code = 1605) negative On board controls acceptable with C Line (test code = 3574) present POCT PREG LOT # (test code = 3575) [id number] POCT PREG TEST DATE ( test code = 3576) 05/11/2022 Lab Interpretation (test cod e = 58491-4) Normal [facility] WITH [id number] 17:42:46* Test Item Value Reference Range Interpretation Comme nts WBC (test code = 6690-2) See_Comment [Automated messa ge] The system which generated this result transmitted reference range: 4.30 - 11.10 10*3/?L. The reference range was not used to interpret this result as normal/abnormal. RBC (test code = 789-8) See_Comment [Automated messa ge] The system which generated this result transmitted reference range: 3.93 - 5.25 10*6/?L. The reference range was not used to interpret this result as normal/abnormal. HGB (test code = 718-7) 13.9 g/dL 11.6-15.0 HCT (test code = 4544-3) 42.5 % 35.7-45.2 MCV (test code = 787-2) 97.3 fL 80.6-95.5 H MCH (test code = 785-6) 31.8 pg 25.9-32.8 MCHC (test code = 786-4) 32.7 g/dL 31.6-35.1 RDW-SD (test code = 98013-3) 48.8 fL 39.0-49.9 RDW-CV (test code = 788-0) 13.5 % 12.0-15.5 PLT (test code = 777-3) See_Comment [Automated messa ge] The system which generated this result transmitted reference range: 166 - 358 10*3/?L. The reference range was not used to interpret this result as normal/abnormal. MPV (test code = 63397-0) 10.0 fL 9.5-12.9 NRBC/100 WBC (test code = 6930804292) See_Comment [Automated [employer] ssage] The system which generated this result transmitted reference range: 0.0 - 10.0 /100 WBCs. The reference range was not used to interpret this result as normal/abnormal. NRBC x10^3 (test code = 6051527813) <0.01 See_Comment [Automated messa ge] The system which generated this result transmitted reference range: 10*3/?L. The reference range was not used to interpret this result as normal/abnormal. GRAN MAT (NEUT) % (test code = 770-8) 69.7 % IMM GRAN % (test code = 5412003521) 0.20 % LYMPH % (test code = 736-9) 25.1 % MONO % (test code = 5905-5) 3.7 % EOS % (test code = 713-8) 0.6 % BASO % (test code = 706-2) 0.7 % GRAN MAT x10^3(ANC) (test code = 7040958700) 6.27 10*3/uL 1.88-7.09 IMM GRAN x10^3 (test code = 4068236380) <0.03 0.00-0.06 LYMPH x10^3 (test code = 731-0) 2.25 10*3/uL 1.32-3.29 MONO x10^3 (test code = 742-7) 0.33 10*3/uL 0.33-0.92 EOS x10^3 (test code = 711-2) 0.05 10*3/uL 0.03-0.39 BASO x10^3 (test code = 704-7) 0.06 10*3/uL 0.01-0.07 Lab Interpretation (test code = 23324-8) Abnormal [facility]"
[2024-05-12 14:09] LABS: Absolute Basophils 0.1 K/uL (0-0.5); Absolute Eosinophils 0.2 K/uL (0-0.5); Absolute Lymphocytes (CBC) 2.4 K/uL (0.7-4.9); Absolute Monocytes 0.5 K/uL (0.1-1.3); Absolute Neutrophil 4.2 K/uL (1.8-8.0); Basophils % 0.8 % (0-1.3); Eosinophils % 2.2 % (0-4.4); Hematocrit 41.4 % (36.0-45.0); Hemoglobin 13.9 g/dL (12.0-15.0); Lymphocytes % 32.9 % (15.3-44.8); MCH 31.7 pg (27.0-35.0); MCHC 33.7 g/dL (32.0-36.0); MPV 7.1 fL (7.6-11.3); Monocytes % 7.1 % (3.3-12.3); Nucleated Red Blood Cells % 0.1 % (0-0); Platelets 288 thou/uL (152-406); Red Cell Distribution Width 14.3 % (12.1-15.2)
[2024-05-12] MEDS ORDERED: METHOCARBAMOL 1,000 MG/10 ML VIAL ONE (14:14)
[2024-05-12] MEDS ORDERED: KETOROLAC 30 MG/ML INJ ONE (14:14)
[2024-05-12] MEDS ORDERED: NA CHLORIDE 0.9% 100 ML ONE (14:14)
[2024-05-12 14:17] LABS: PT Prothrombin Time 10.8 SECONDS (9.4-12.5); Protime INR 1.03
[2024-05-12 14:32] LABS: ALT/SGPT 61 U/L (13-56); AST/SGOT 18 U/L (15-37); Albumin 3.4 g/dL (3.4-5.0); Alkaline Phosphatase 78 U/L (45-117); Anion Gap 8.5 mEq/L (5.0-15.0); BUN Blood Urea Nitrogen 13 mg/dL (7-18); Bicarbonate 26 mEq/L (21-32); Bilirubin Total 0.5 mg/dL (0.2-1.0); Globulin 3.5 g/dL (2.3-3.5); Glomerular Filtration Rate 95 ml/min (=/>90); Glucose Level 134 mg/dL (74-106); Potassium 3.5 mEq/L (3.5-5.1); Protein, Total 6.9 g/dL (6.4-8.2); Sodium Level 140 mEq/L (136-145)
[2024-05-12 14:35] LABS: Bilirubin Direct < 0.2 mg/dL (0-0.2); Bilirubin Indirect, Calculated 0.3 mg/dL (0.2-0.8); Troponin High Sensitivity < 3.0 pg/mL (<58.9)
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
[2024-05-12 18:27] VITALS: O2SAT 100
[2024-05-12 18:28] VITALS: BP 110/78; TEMP 97.6
--- NOTE | 2024-05-15 12:23 | EKG ---
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
== END 2024-05-12 17:55 | disposition home or self-care (01) ==
LOC: ER 12:55
DX: M54.2 Cervicalgia (principal); S29.091A Other injury of muscle and tendon of front wall of thorax, initial encounter; S29.092A Other injury of muscle and tendon of back wall of thorax, initial encounter; V49.50XA Passenger injured in collision with unspecified motor vehicles in traffic accident, initial encounter; F17.210 Nicotine dependence, cigarettes, uncomplicated
CPT/HCPCS: 96365; 93005; 85025; 80048; 36415; 83735; 85610; 80076; 84484; 70450; 71250; 72125; 74176; 71045; 96375; 99285; 96366; J2800